=== PATIENT | male | born 1950 | race Caucasian/White ===

== ENCOUNTER 2016-11-18 08:49 | Emergency (ER) | payer MEDICAID ==
[~2016-11-18 08:49] MED LIST: /LOR25TA OR; /QUET10TA PO; ABIL20TA2 OR; ADDE10TA PO; ADDE20CA PO; CHLO200T OR; CLON1TAB PO; COLA100C2 OR; DEPA500T2 OR; MEDR8TAB OR; MELOPOW PO; MULTIVIT PO; Methylprednisolone; NICO21DI4 TD; PERC5TAB8 OR; QUET20XRTB OR; SERO200T PO; TIZA4TAB OR; TRAZ50TA OR; VALT500T OR; VICO5TAB PO
[2016-11-18] MEDS ORDERED: KETOROLAC 30 MG/ML VIAL (J1885) As Ordered ONE (10:05)
--- NOTE | 2016-11-18 10:24 | REP ---
Pelvis: Two views. History: Pain. Findings: AP and frog-leg views of the pelvis are compared with the June 08, 2011 prior study. There are mild osteoarthritic changes at the hips. Bony pelvic ring is intact. No pelvic or sacral fracture is seen. No bony destructive lesion noted. Visualized bowel gas pattern is unremarkable. There are some calcifications in the prostate. Impression: Mild osteoarthritis of the hips bilaterally. No acute bony abnormality. Signed by Moise Gay MD 11/18/2016 10:41 A
--- NOTE | 2016-11-18 10:24 | REP ---
Chest x-ray: Two views. History: Cough and wheezing. Findings: The lungs are symmetrically aerated and free of infiltrate. Pleural angles are sharp. There is a stable nodular opacity projecting over the right anterior second rib unchanged from the 2011 prior study. Lung miranda are otherwise clear. Heart is not enlarged. There are degenerative changes in the thoracic spine. Pulmonary vasculature is not increased. EKG monitoring electrodes overlie the chest. Impression: No active disease. Signed by Moise Gay MD 11/18/2016 10:41 A
--- NOTE | 2016-11-18 10:26 | REP ---
Lumbar spine series: Six views: History: Right lower back pain. Comparison radiographs September 30, 2012. Findings: Lumbar vertebral body heights are preserved. There is straightening of the normal lumbar lordosis. Degenerative disc disease is again noted at multiple levels. The disc space narrowing and reactive sclerosis and osteophyte formation are most pronounced at the L2-3 disc level. There is a stable grade 1 L1-2 3 mm retrolisthesis again noted unchanged. The discogenic sclerosis is a little more prominent. Discogenic spurring is seen to mild degree of all of the lumbar levels and the visualized lower thoracic levels. No subluxation is seen. No fracture or collapse is noted. Pedicles and posterior elements are intact. Psoas margins are symmetric. Sacrum and SI joints have an intact appearance. Impression: Diffuse degenerative disc disease in the lumbar spine most pronounced at L2-3. Discogenic spurring and sclerosis are a little more prominent at this level than was visible on the September 2012 prior exam. There is a stable grade 1 L1-2 3 mm retrolisthesis again noted unchanged. Signed by Moise Gay MD 11/18/2016 10:41 A
--- NOTE | 2016-11-18 11:49 | EDDOCDS ---
Nurse's Notes [facility] Name: Dre Monk Age: 65 yrs Sex: Male : 1950 Arrival Date: 11/18/2016 Time: 08:49 Bed 12 Private MD: Diagnosis: Strain of muscle and tendon of back wall of thorax-AFFECTING RIGHT LOWER BACK;Acute upper respiratory infection, unspecified;Cough Presentation: 11/18 08:51 Presenting complaint: EMS states: called to residence by another building resident. Per [facility], patient was complaining of back pain for the past 3 days, patient developed pain after coughing. Pain increases with cough. Allegedly had blood in stool last week. Complained of wheezing 3 days ago. 08:53 Presenting complaint: Patient states: Has been sick since Wednesday with coughing and ja5 chills, trouble urinating, some traces of blood visualized in stool when he has a BM. Acute neurological deficits are not present. Mechanism of Injury: No Mechanism of Injury. Adult Sepsis Screening: The patient does not have new or worsening altered mentation. Patient has a respiratory rate of greater than or equal to 22 (1 point). Systolic blood pressure is greater than 100. Patient has a qSOFA score of 1- Negative Sepsis Screen. Suicide/Homicide risk assessment- the patient denies having any suicidal and/or homicidal ideations and does not present with any other emotional, behavioral or mental health complaints. Status: Patient is not a student services coordinator or dependent. Transition of care: patient was not received from another setting of care. 08:53 Acuity: [place] Level 3 ja5 08:53 Method Of Arrival: Ambulance [facility] 08:54 Care prior to arrival: See EMS report. 4 Triage Assessment: 09:03 General: Appears in no apparent distress, Behavior is appropriate for age, cooperative. ja5 Pain: Location: right lower quadrant and right lower back. HIV screening NA for this visit Offered previously. The patient is triaged at the bedside. See Assessment in Nurses Notes section of ED record. Musculoskeletal: Circulation, motion, and sensation intact. Historical: - Allergies: Depakotebody aches; Tramadol HCl; - Home Meds: 1. ibuprofen 200 mg oral cap 2 caps as needed (Last dose: 11/17/2016) 2. Seroquel 100 mg Oral tab 2 tabs nightly (Last dose: 10/18/2016) 3. Omeprazole Unknown Oral once daily 4. clopidogrel 75 mg oral tab 1 tab once daily 5. metoprolol tartrate 50 mg Oral tab 1 tab 2 times per day 6. Eliquis 2.5 mg oral tab 1 tab 2 times per day 7. digoxin 125 mcg Oral tab 1 tab once daily 8. ferrous sulfate 325 mg (65 mg iron) Oral tab 9. lidocaine patch 5% 10. Advair HFA 115-21 mcg/actuation inhalation HFAA 2 puffs 2 times per day 11. zolpidem 10 mg Oral tab hs 12. clonazepam 0.5 mg Oral tab 13. dexamethasone 0.5 mg Oral tab 14. hydrocodone-acetaminophen 5-325 mg Oral tab as needed - PMHx: Chronic Back pain; ADHD; Depression; - PSHx: Hernia repair- Right inguinal; Tonsillectomy; - Social history: Smoking status: Patient uses tobacco products, heavy tobacco smoker. No barriers to communication noted, The patient speaks fluent Sami. - Family history: No immediate family members are acutely ill. - : The pt / caregiver states he / she is not on anticoagulants. Home medication list is obtained from the patient. - Exposure Risk Screening:: None identified. Screenin:10 Screening information is obtained from the patient. Fall risk: No risks identified. ja5 Assistance ADL's: requires no assistance with activities of daily living. Abuse/DV Screen: The patient / caregiver reports he/she is: not in a situation that causes fear, pain or injury. Nutritional screening: On no prescribed diet. Advance Directives: Currently, there is no health care proxy. There is an active DNR order but there is no copy available at this time. There is a living will, but a copy is not available at this time. There is no Power of Retail Loss Prevention Investigator. home support is inadequate. 09:21 Referral is made to [facility]. roxana Assessment: 09:06 General: Appears in no apparent distress, Behavior is appropriate for age, cooperative. ja5 Pain: Location: right lower quadrant and right lower back Pain currently is 7 out of 10 on a pain scale. Neurological: Level of Consciousness is awake, alert, Oriented to person, place, time. Cardiovascular: Capillary refill < 3 seconds Heart tones S1 S2 present. Respiratory: Airway is patent Respiratory effort is even, shallow, Breath sounds with wheezes expiratory bilaterally. GI: Abdomen is non- distended Bowel sounds present X 4 quads. Abd is soft X 4 quads Abd is non tender X 4 quads. Derm: Skin is pink, warm & dry. Musculoskeletal: Circulation, motion, and sensation intact. 10:13 General: Patient is awake and alert, resting in stretcher. Respirations are even and ja5 unlabored, current pain level is 7/10, he has no needs at this time. . Social Work Consult: 11:44 Social Work Note: Met pt at bedside regarding lack of adequate support. Admits residing ml4 alone, however does not like to go to appt's in the winter time due to feeling like he is going to fall. He reports a hx of depression, used to seek tx with [facility], last appt Aug 18. He denies SI and HI, able to CFS. Referrals for [facility], Home Care Services, and outpt psychiatrists services was given at bedside. Vital Signs: 08:56 BP 138 / 82; Pulse 85; Resp 22; Temp 98.3(TE); Pulse Ox 96% on R/A; Weight 72.57 kg nb2 (R); Height 5 ft. 11 in. (180.34 cm) (R); Pain 0/10; 10:50 BP 111 / 65; Pulse 80; Resp 18; Temp 99; Pulse Ox 96% ; Pain 0/10; cmb 08:56 Body Mass Index 22.32 (72.57 kg, 180.34 cm) nb2 Vitals: 08:51 Log In Time N/A - ambulance arrival. cmb ED Course: 08:51 Patient visited by Donna Angel. cmb 08:51 Patient moved to Waiting cmb 08:53 Hallie Mello,RN is Primary Nurse. cmb 08:53 Irma Mclaughlin, RN is Primary Nurse. cmb 08:53 Marni Herrera,RN is Primary Nurse. cmb 08:53 Patient moved to 12 b 08:56 Placed in gown. Bed in low position. Call light in reach. Side rails up X2. Cardiac nb2 monitor on. Pulse ox on. NIBP on. 08:57 Patient visited by Mariia Pacheco. nb2 09:00 Triage Initiated ja5 09:13 Patient visited by Marni Herrera RN. ja5 09:26 [facility] Saunders [facility]C [facility]. dt4 09:26 Chance Andrade MD is Attending Physician. dt4 09:26 Patient visited by Abiola Saunders PA-C. dt4 10:08 -Influenza A&B Rapid Antigen - Nose Sent. ja5 10:16 Patient visited by Marni Herrera RN. ja5 10:41 Pelvis Returned. EDMS 10:41 Chest, 2 View (pa\E\lat) Returned. EDMS 10:41 Spine. Lumbosacral, Complete Returned. EDMS 10:45 [facility] is Referral Physician. dt4 10:51 Patient visited by Donna Angel. cmb 11:05 Primary Nurse role handed off by Irma Mclaughlin RN jc4 11:48 Patient visited by Ayleen Stanford PSA. ml4 11:48 The patient / caregiver is instructed regarding the plan of care and ED course. mb9 11:48 No IV's were initiated during this patient's visit. No procedures done that require mb9 assistance. Administered Medications: 10:11 Drug: ketorolac 60 mg [ketorolac 30 mg/mL (1 mL) injection solution (2 mL)] Route: IM; ja5 Site: left deltoid; Order Results: Lab Order: -Influenza A&B Rapid Antigen - Nose; SPEC'M 11/18/16 10:06 Test: INFLUENZA A RAPID SCR by ICA; Value: INFLUENZA A RESULTS NEGATIVE; Status: F Test: INFLUENZA A RAPID SCR by ICA; Value: Comments:; Status: F Test: INFLUENZA B RAPID SCR by ICA; Value: INFLUENZA B RESULTS NEGATIVE; Status: F Test Note: ; The Influenza test is a direct rapid immunoassay for the qualitative detection of Influenza viral antigen. Cell culture (Viral Culture) testing should be considered to confirm NEGATIVE results and to assist in detecting other viruses that can provide similar clinical symptoms. Please contact the lab within 24 hours ([phone]) if confirmatory testing is desired. Radiology Order: Chest, 2 View (pa\E\lat) Test: Chest, 2 View (pa\E\lat) REASON FOR EXAMINATION: COUGH, WHEEZING; Chest x-ray: Two views.; ; History: Cough and wheezing.; ; Findings: The lungs are symmetrically aerated and free of infiltrate. Pleural; angles are sharp. There is a stable nodular opacity projecting over the right; anterior second rib unchanged from the 2010 prior study. Lung miranda are; otherwise clear. Heart is not enlarged. There are degenerative changes in the; thoracic spine. Pulmonary vasculature is not increased. EKG monitoring; electrodes overlie the chest.; ; Impression:; ; No active disease.; ; ; Signed by; Moise Gay MD 11/18/2016 10:41 A; Radiology Order: Spine. Lumbosacral, Complete Test: Spine. Lumbosacral, Complete REASON FOR EXAMINATION: RIGHT LOW BACK PAIN; Lumbar spine series: Six views:; ; History: Right lower back pain. Comparison radiographs September 30, 2012.; ; Findings: Lumbar vertebral body heights are preserved. There is straightening; of the normal lumbar lordosis. Degenerative disc disease is again noted at; multiple levels. The disc space narrowing and reactive sclerosis and osteophyte; formation are most pronounced at the L2-3 disc level. There is a stable grade 1; L1-2 3 mm retrolisthesis again noted unchanged. The discogenic sclerosis is a; little more prominent. Discogenic spurring is seen to mild degree of all of the; lumbar levels and the visualized lower thoracic levels. No subluxation is seen.; No fracture or collapse is noted. Pedicles and posterior elements are intact.; Psoas margins are symmetric. Sacrum and SI joints have an intact appearance.; ; Impression:; ; Diffuse degenerative disc disease in the lumbar spine most pronounced at L2-3.; Discogenic spurring and sclerosis are a little more prominent at this level than; was visible on the September 2012 prior exam. There is a stable grade 1 L1-2 3 mm; retrolisthesis again noted unchanged.; ; ; Signed by; Moise Gay MD 11/18/2016 10:41 A; Radiology Order: Pelvis Test: Pelvis REASON FOR EXAMINATION: RIGHT LOW BACK PAIN; Pelvis: Two views.; ; History: Pain.; ; Findings: AP and frog-leg views of the pelvis are compared with the June 082010 prior study. There are mild osteoarthritic changes at the hips. Bony; pelvic ring is intact. No pelvic or sacral fracture is seen. No bony; destructive lesion noted. Visualized bowel gas pattern is unremarkable. There; are some calcifications in the prostate.; ; Impression:; ; Mild osteoarthritis of the hips bilaterally. No acute bony abnormality.; ; ; Signed by; Moise Gay MD 11/18/2016 10:41 A; Outcome: 10:45 Discharge ordered by Provider. dt4 11:48 Discharge Assessment: Patient awake, alert and oriented x 3. No cognitive and/or mb9 functional deficits noted. Patient verbalized understanding of disposition instructions. patient administered narcotics - no. The following High Risk Discharge criteria are identified: None. Discharged to home ambulatory. Condition: good Condition: stable Condition: improved. Discharge instructions given to patient, Instructed on discharge instructions, follow up and referral plans. medication usage, Demonstrated understanding of instructions, medications, Pt was receptive of discharge instructions/ teaching. Prescriptions given X 1. No special radiology studies were completed. Property :Personal belongings accompany Pt. 11:48 Patient left the ED. mb9 Signatures: Dispatcher [employer] EDMS Kaya Sagastume, RN RN mcp Ayleen Stanford, PSA PSA ml4 Irma Mclaughlin, RN RN jc4 Donna Angel cmAbiola Triana, PA-C PA-C dt4 Morris Landis RN RN mb9 Mariia Pacheco2 Marni Herrera,RN RN ja5 MTDD
--- NOTE | 2016-11-18 11:49 | EDDOCDS ---
Physician Documentation [facility] Name: Dre Monk Age: 65 yrs Sex: Male : 1950 Arrival Date: 11/18/2016 Time: 08:49 Bed 12 Private MD: Disposition: 11/18/16 10:45 Discharged to Home/Self Care. Impression: Strain of muscle and tendon of back wall of thorax - AFFECTING RIGHT LOWER BACK, Acute upper respiratory infection, unspecified, Cough. - Condition is Stable. - Discharge Instructions: Muscle Strain, Upper Respiratory Infection, Adult, Cough, Adult. - Prescriptions for benzonatate 200 mg Oral Capsule - take 1 capsule by ORAL route 3 times per day As needed; 30 capsule. - Medication Reconciliation, Local Pharmacy Hours form. - Follow up: Emergency Department; When: As needed; Reason: Worsening of conditions. Follow up: [facility]; When: Call to arrange an appointment; Reason: Wound/Symptom Recheck, Recheck today's complaints, Continuance of care, To establish care. - Problem is new. - Symptoms are unchanged. Historical: - Allergies: Depakotebody aches; Tramadol HCl; - Home Meds: 1. ibuprofen 200 mg oral cap 2 caps as needed (Last dose: 11/17/2016) 2. Seroquel 100 mg Oral tab 2 tabs nightly (Last dose: 10/18/2016) 3. Omeprazole Unknown Oral once daily 4. clopidogrel 75 mg oral tab 1 tab once daily 5. metoprolol tartrate 50 mg Oral tab 1 tab 2 times per day 6. Eliquis 2.5 mg oral tab 1 tab 2 times per day 7. digoxin 125 mcg Oral tab 1 tab once daily 8. ferrous sulfate 325 mg (65 mg iron) Oral tab 9. lidocaine patch 5% 10. Advair HFA 115-21 mcg/actuation inhalation HFAA 2 puffs 2 times per day 11. zolpidem 10 mg Oral tab hs 12. clonazepam 0.5 mg Oral tab 13. dexamethasone 0.5 mg Oral tab 14. hydrocodone-acetaminophen 5-325 mg Oral tab as needed - PMHx: Chronic Back pain; ADHD; Depression; - PSHx: Hernia repair- Right inguinal; Tonsillectomy; - Social history: Smoking status: Patient uses tobacco products, heavy tobacco smoker. No barriers to communication noted, The patient speaks fluent Nepali. - Family history: No immediate family members are acutely ill. - : The pt / caregiver states he / she is not on anticoagulants. Home medication list is obtained from the patient. - Exposure Risk Screening:: None identified. Vital Signs: 11/18 08:56 BP 138 / 82; Pulse 85; Resp 22; Temp 98.3(TE); Pulse Ox 96% on R/A; Weight 72.57 kg / nb2 159.99 lbs (R); Height 5 ft. 11 in. (180.34 cm) (R); Pain 0/10; 10:50 BP 111 / 65; Pulse 80; Resp 18; Temp 99; Pulse Ox 96% ; Pain 0/10; cmb 08:56 Body Mass Index 22.32 (72.57 kg, 180.34 cm) nb2 MDM: 09:35 Obtain sample by nasopharyngeal swab ordered. dt4 09:35 ketorolac 60 mg IM once ordered. dt4 09:37 -Influenza A&B Rapid Antigen - Nose Ordered. EDMS 09:37 Chest, 2 View (pa\E\lat) Ordered. EDMS 09:37 Spine. Lumbosacral, Complete Ordered. EDMS 09:37 Pelvis Ordered. EDMS Administered Medications: 10:11 Drug: ketorolac 60 mg [ketorolac 30 mg/mL (1 mL) injection solution (2 mL)] Route: IM; ja5 Site: left deltoid; Signatures: Dispatcher [employer] EDMS Kaya Sagastume RN RN mcp Tschudi, Diane, PA-C PA-C dt4 Morris Landis RN RN mb9 Anderson, Jessica, RN RN ja5 MTDD
--- NOTE | 2016-11-20 12:49 | EDDOCDS ---
Nurse's Notes [facility] Name: Dre Monk Age: 65 yrs Sex: Male : 1950 Arrival Date: 11/18/2016 Time: 08:49 Bed 12 Private MD: Diagnosis: Strain of muscle and tendon of back wall of thorax-AFFECTING RIGHT LOWER BACK;Acute upper respiratory infection, unspecified;Cough Presentation: 11/18 08:51 Presenting complaint: EMS states: called to residence by another building resident. Per [facility], patient was complaining of back pain for the past 3 days, patient developed pain after coughing. Pain increases with cough. Allegedly had blood in stool last week. Complained of wheezing 3 days ago. 08:53 Presenting complaint: Patient states: Has been sick since Wednesday with coughing and ja5 chills, trouble urinating, some traces of blood visualized in stool when he has a BM. Acute neurological deficits are not present. Mechanism of Injury: No Mechanism of Injury. Adult Sepsis Screening: The patient does not have new or worsening altered mentation. Patient has a respiratory rate of greater than or equal to 22 (1 point). Systolic blood pressure is greater than 100. Patient has a qSOFA score of 1- Negative Sepsis Screen. Suicide/Homicide risk assessment- the patient denies having any suicidal and/or homicidal ideations and does not present with any other emotional, behavioral or mental health complaints. 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 Transition of care: patient was not received from another setting of care. 08:53 Acuity: [place] Level 3 ja5 08:53 Method Of Arrival: Ambulance [facility] 08:54 Care prior to arrival: See EMS report. 4 Triage Assessment: 09:03 General: Appears in no apparent distress, Behavior is appropriate for age, cooperative. ja5 Pain: Location: right lower quadrant and right lower back. HIV screening NA for this visit Offered previously. The patient is triaged at the bedside. See Assessment in Nurses Notes section of ED record. Musculoskeletal: Circulation, motion, and sensation intact. Historical: - Allergies: Depakotebody aches; Tramadol HCl; - Home Meds: 1. ibuprofen 200 mg oral cap 2 caps as needed (Last dose: 11/17/2016) 2. Seroquel 100 mg Oral tab 2 tabs nightly (Last dose: 10/18/2016) 3. Omeprazole Unknown Oral once daily 4. clopidogrel 75 mg oral tab 1 tab once daily 5. metoprolol tartrate 50 mg Oral tab 1 tab 2 times per day 6. Eliquis 2.5 mg oral tab 1 tab 2 times per day 7. digoxin 125 mcg Oral tab 1 tab once daily 8. ferrous sulfate 325 mg (65 mg iron) Oral tab 9. lidocaine patch 5% 10. Advair HFA 115-21 mcg/actuation inhalation HFAA 2 puffs 2 times per day 11. zolpidem 10 mg Oral tab hs 12. clonazepam 0.5 mg Oral tab 13. dexamethasone 0.5 mg Oral tab 14. hydrocodone-acetaminophen 5-325 mg Oral tab as needed - PMHx: Chronic Back pain; ADHD; Depression; - PSHx: Hernia repair- Right inguinal; Tonsillectomy; - Social history: Smoking status: Patient uses tobacco products, heavy tobacco smoker. No barriers to communication noted, The patient speaks fluent Welsh. - Family history: No immediate family members are acutely ill. - : The pt / caregiver states he / she is not on anticoagulants. Home medication list is obtained from the patient. - Exposure Risk Screening:: None identified. Screenin:10 Screening information is obtained from the patient. Fall risk: No risks identified. ja5 Assistance ADL's: requires no assistance with activities of daily living. Abuse/DV Screen: The patient / caregiver reports he/she is: not in a situation that causes fear, pain or injury. Nutritional screening: On no prescribed diet. Advance Directives: Currently, there is no health care proxy. There is an active DNR order but there is no copy available at this time. There is a living will, but a copy is not available at this time. There is no Power of Exhibit Builder. home support is inadequate. 09:21 Referral is made to [facility]. roxana Assessment: 09:06 General: Appears in no apparent distress, Behavior is appropriate for age, cooperative. ja5 Pain: Location: right lower quadrant and right lower back Pain currently is 7 out of 10 on a pain scale. Neurological: Level of Consciousness is awake, alert, Oriented to person, place, time. Cardiovascular: Capillary refill < 3 seconds Heart tones S1 S2 present. Respiratory: Airway is patent Respiratory effort is even, shallow, Breath sounds with wheezes expiratory bilaterally. GI: Abdomen is non- distended Bowel sounds present X 4 quads. Abd is soft X 4 quads Abd is non tender X 4 quads. Derm: Skin is pink, warm & dry. Musculoskeletal: Circulation, motion, and sensation intact. 10:13 General: Patient is awake and alert, resting in stretcher. Respirations are even and ja5 unlabored, current pain level is 7/10, he has no needs at this time. . Social Work Consult: 11:44 Social Work Note: Met pt at bedside regarding lack of adequate support. Admits residing ml4 alone, however does not like to go to appt's in the winter time due to feeling like he is going to fall. He reports a hx of depression, used to seek tx with [facility], last appt Aug 18. He denies SI and HI, able to CFS. Referrals for GME, Home Care Services, and outpt psychiatrists services was given at bedside. Vital Signs: 08:56 BP 138 / 82; Pulse 85; Resp 22; Temp 98.3(TE); Pulse Ox 96% on R/A; Weight 72.57 kg nb2 (R); Height 5 ft. 11 in. (180.34 cm) (R); Pain 0/10; 10:50 BP 111 / 65; Pulse 80; Resp 18; Temp 99; Pulse Ox 96% ; Pain 0/10; cmb 08:56 Body Mass Index 22.32 (72.57 kg, 180.34 cm) nb2 Vitals: 08:51 Log In Time N/A - ambulance arrival. cmb ED Course: 08:51 Patient visited by Donna Angel. cmb 08:51 Patient moved to Waiting cmb 08:53 Hallie Mello,RN is Primary Nurse. cmb 08:53 Irma Mclaughlin, RN is Primary Nurse. cmb 08:53 Marni Herrera,RN is Primary Nurse. cmb 08:53 Patient moved to 12 b 08:56 Placed in gown. Bed in low position. Call light in reach. Side rails up X2. Cardiac nb2 monitor on. Pulse ox on. NIBP on. 08:57 Patient visited by Mariia Pacheco. nb2 09:00 Triage Initiated ja5 09:13 Patient visited by Marni Herrera RN. ja5 09:26 [facility]unders [facility] dt4 09:26 Chance Andrade MD is Attending Physician. dt4 09:26 Patient visited by Abiola Saunders PA-C. dt4 10:08 -Influenza A&B Rapid Antigen - Nose Sent. ja5 10:16 Patient visited by Marni Herrera RN. ja5 10:41 Pelvis Returned. EDMS 10:41 Chest, 2 View (pa\E\lat) Returned. EDMS 10:41 Spine. Lumbosacral, Complete Returned. EDMS 10:45 [facility] is Referral Physician. dt4 10:51 Patient visited by Donna Angel. cmb 11:05 Primary Nurse role handed off by Irma Mclaughlin RN jc4 11:48 Patient visited by Ayleen Stanford PSA. ml4 11:48 The patient / caregiver is instructed regarding the plan of care and ED course. mb9 11:48 No IV's were initiated during this patient's visit. No procedures done that require mb9 assistance. 11:52 [facility] Payment Agreement was scanned into [employer] and attached to record. mm15 15:04 T-Sheet-- Draft Copy was scanned into [employer] and attached to record. gb Administered Medications: 10:11 Drug: ketorolac 60 mg [ketorolac 30 mg/mL (1 mL) injection solution (2 mL)] Route: IM; ja5 Site: left deltoid; Order Results: Lab Order: -Influenza A&B Rapid Antigen - Nose; SPEC'M 11/18/16 10:06 Test: INFLUENZA A RAPID SCR by ICA; Value: INFLUENZA A RESULTS NEGATIVE; Status: F Test: INFLUENZA A RAPID SCR by ICA; Value: Comments:; Status: F Test: INFLUENZA B RAPID SCR by ICA; Value: INFLUENZA B RESULTS NEGATIVE; Status: F Test Note: ; The Influenza test is a direct rapid immunoassay for the qualitative detection of Influenza viral antigen. Cell culture (Viral Culture) testing should be considered to confirm NEGATIVE results and to assist in detecting other viruses that can provide similar clinical symptoms. Please contact the lab within 24 hours ([phone]) if confirmatory testing is desired. Radiology Order: Chest, 2 View (pa\E\lat) Test: Chest, 2 View (pa\E\lat) REASON FOR EXAMINATION: COUGH, WHEEZING; Chest x-ray: Two views.; ; History: Cough and wheezing.; ; Findings: The lungs are symmetrically aerated and free of infiltrate. Pleural; angles are sharp. There is a stable nodular opacity projecting over the right; anterior second rib unchanged from the 2010 prior study. Lung miranda are; otherwise clear. Heart is not enlarged. There are degenerative changes in the; thoracic spine. Pulmonary vasculature is not increased. EKG monitoring; electrodes overlie the chest.; ; Impression:; ; No active disease.; ; ; Signed by; Moise Gay MD 11/18/2016 10:41 A; Radiology Order: Spine. Lumbosacral, Complete Test: Spine. Lumbosacral, Complete REASON FOR EXAMINATION: RIGHT LOW BACK PAIN; Lumbar spine series: Six views:; ; History: Right lower back pain. Comparison radiographs September 30, 2012.; ; Findings: Lumbar vertebral body heights are preserved. There is straightening; of the normal lumbar lordosis. Degenerative disc disease is again noted at; multiple levels. The disc space narrowing and reactive sclerosis and osteophyte; formation are most pronounced at the L2-3 disc level. There is a stable grade 1; L1-2 3 mm retrolisthesis again noted unchanged. The discogenic sclerosis is a; little more prominent. Discogenic spurring is seen to mild degree of all of the; lumbar levels and the visualized lower thoracic levels. No subluxation is seen.; No fracture or collapse is noted. Pedicles and posterior elements are intact.; Psoas margins are symmetric. Sacrum and SI joints have an intact appearance.; ; Impression:; ; Diffuse degenerative disc disease in the lumbar spine most pronounced at L2-3.; Discogenic spurring and sclerosis are a little more prominent at this level than; was visible on the September 2012 prior exam. There is a stable grade 1 L1-2 3 mm; retrolisthesis again noted unchanged.; ; ; Signed by; Moise Gay MD 11/18/2016 10:41 A; Radiology Order: Pelvis Test: Pelvis REASON FOR EXAMINATION: RIGHT LOW BACK PAIN; Pelvis: Two views.; ; History: Pain.; ; Findings: AP and frog-leg views of the pelvis are compared with the June 082010 prior study. There are mild osteoarthritic changes at the hips. Bony; pelvic ring is intact. No pelvic or sacral fracture is seen. No bony; destructive lesion noted. Visualized bowel gas pattern is unremarkable. There; are some calcifications in the prostate.; ; Impression:; ; Mild osteoarthritis of the hips bilaterally. No acute bony abnormality.; ; ; Signed by; Moise Gay MD 11/18/2016 10:41 A; Outcome: 10:45 Discharge ordered by Provider. dt4 11:48 Discharge Assessment: Patient awake, alert and oriented x 3. No cognitive and/or mb9 functional deficits noted. Patient verbalized understanding of disposition instructions. patient administered narcotics - no. The following High Risk Discharge criteria are identified: None. Discharged to home ambulatory. Condition: good Condition: stable Condition: improved. Discharge instructions given to patient, Instructed on discharge instructions, follow up and referral plans. medication usage, Demonstrated understanding of instructions, medications, Pt was receptive of discharge instructions/ teaching. Prescriptions given X 1. No special radiology studies were completed. Property :Personal belongings accompany Pt. 11:48 Patient left the ED. mb9 Signatures: Dispatcher [employer] EDMS Kaya Sagastume, RN RN mcp Lulu James, Reg Reg gb Ayleen Stanford, PSA PSA ml4 Irma Mclaughlin, RN RN jc4 Donna Angel cmIan Monet mm15 Abiola Saunders, PA-C PA-C dt4 Morris LandisRN RN mb9 Mariia Pacheco nb2 Marni HerreraRN RN ja5 Chart Complete MTDD
--- NOTE | 2016-11-20 12:49 | EDDOCDS ---
Physician Documentation [facility] Name: Dre Monk Age: 65 yrs Sex: Male : 1950 Arrival Date: 11/18/2016 Time: 08:49 Bed 12 Private MD: Disposition: 11/18/16 10:45 Discharged to Home/Self Care. Impression: Strain of muscle and tendon of back wall of thorax - AFFECTING RIGHT LOWER BACK, Acute upper respiratory infection, unspecified, Cough. - Condition is Stable. - Discharge Instructions: Muscle Strain, Upper Respiratory Infection, Adult, Cough, Adult. - Prescriptions for benzonatate 200 mg Oral Capsule - take 1 capsule by ORAL route 3 times per day As needed; 30 capsule. - Medication Reconciliation, Local Pharmacy Hours form. - Follow up: Emergency Department; When: As needed; Reason: Worsening of conditions. [facility]: [facility]; When: Call to arrange an appointment; Reason: Wound/Symptom Recheck, Recheck today's complaints, Continuance of care, To establish care. - Problem is new. - Symptoms are unchanged. Historical: - Allergies: Depakotebody aches; Tramadol HCl; - Home Meds: 1. ibuprofen 200 mg oral cap 2 caps as needed (Last dose: 11/17/2016) 2. Seroquel 100 mg Oral tab 2 tabs nightly (Last dose: 10/18/2016) 3. Omeprazole Unknown Oral once daily 4. clopidogrel 75 mg oral tab 1 tab once daily 5. metoprolol tartrate 50 mg Oral tab 1 tab 2 times per day 6. Eliquis 2.5 mg oral tab 1 tab 2 times per day 7. digoxin 125 mcg Oral tab 1 tab once daily 8. ferrous sulfate 325 mg (65 mg iron) Oral tab 9. lidocaine patch 5% 10. Advair HFA 115-21 mcg/actuation inhalation HFAA 2 puffs 2 times per day 11. zolpidem 10 mg Oral tab hs 12. clonazepam 0.5 mg Oral tab 13. dexamethasone 0.5 mg Oral tab 14. hydrocodone-acetaminophen 5-325 mg Oral tab as needed - PMHx: Chronic Back pain; ADHD; Depression; - PSHx: Hernia repair- Right inguinal; Tonsillectomy; - Social history: Smoking status: Patient uses tobacco products, heavy tobacco smoker. No barriers to communication noted, The patient speaks fluent Lao. - Family history: No immediate family members are acutely ill. - : The pt / caregiver states he / she is not on anticoagulants. Home medication list is obtained from the patient. - Exposure Risk Screening:: None identified. Vital Signs: 11/18 08:56 BP 138 / 82; Pulse 85; Resp 22; Temp 98.3(TE); Pulse Ox 96% on R/A; Weight 72.57 kg / nb2 159.99 lbs (R); Height 5 ft. 11 in. (180.34 cm) (R); Pain 0/10; 10:50 BP 111 / 65; Pulse 80; Resp 18; Temp 99; Pulse Ox 96% ; Pain 0/10; cmb 08:56 Body Mass Index 22.32 (72.57 kg, 180.34 cm) nb2 MDM: 09:35 Obtain sample by nasopharyngeal swab ordered. dt4 09:35 ketorolac 60 mg IM once ordered. dt4 09:37 -Influenza A&B Rapid Antigen - Nose Ordered. EDMS 09:37 Chest, 2 View (pa\E\lat) Ordered. EDMS 09:37 Spine. Lumbosacral, Complete Ordered. EDMS 09:37 Pelvis Ordered. EDMS 11:52 [facility] Payment Agreement was scanned into [employer] and attached to record. 15 11:52 Financial registration complete. mm15 15:04 T-Sheet-- Draft Copy was scanned into [employer] and attached to record. gb Administered Medications: 10:11 Drug: ketorolac 60 mg [ketorolac 30 mg/mL (1 mL) injection solution (2 mL)] Route: IM; ja5 Site: left deltoid; Signatures: Dispatcher [employer] EDMS Kaya Sagastume RN RN mcp Barnhardt, Gloria, Reg Reg gb Ian Burden mm15 Abiola Saunders PA-C PAJayla dt4 Morris Landis RN RN mb9 Marni Herrera RN RN ja5 The chart was reviewed and I authenticate all verbal orders and agree with the evaluation and treatment provided.Attachments: 11:52 [facility] Payment Agreement mm15 15:04 T-Sheet-- Draft Copy gb Chart Complete MTDD
--- NOTE | 2016-11-20 12:49 | EDDOCDS ---
Physician Documentation [facility] Name: Dre Monk Age: 65 yrs Sex: Male : 1950 Arrival Date: 11/18/2016 Time: 08:49 Bed 12 Private MD: Disposition: 11/18/16 10:45 Discharged to Home/Self Care. Impression: Strain of muscle and tendon of back wall of thorax - AFFECTING RIGHT LOWER BACK, Acute upper respiratory infection, unspecified, Cough. - Condition is Stable. - Discharge Instructions: Muscle Strain, Upper Respiratory Infection, Adult, Cough, Adult. - Prescriptions for benzonatate 200 mg Oral Capsule - take 1 capsule by ORAL route 3 times per day As needed; 30 capsule. - Medication Reconciliation, Local Pharmacy Hours form. - Follow up: Emergency Department; When: As needed; Reason: Worsening of conditions. [facility]: [facility]; When: Call to arrange an appointment; Reason: Wound/Symptom Recheck, Recheck today's complaints, Continuance of care, To establish care. - Problem is new. - Symptoms are unchanged. Historical: - Allergies: Depakotebody aches; Tramadol HCl; - Home Meds: 1. ibuprofen 200 mg oral cap 2 caps as needed (Last dose: 11/17/2016) 2. Seroquel 100 mg Oral tab 2 tabs nightly (Last dose: 10/18/2016) 3. Omeprazole Unknown Oral once daily 4. clopidogrel 75 mg oral tab 1 tab once daily 5. metoprolol tartrate 50 mg Oral tab 1 tab 2 times per day 6. Eliquis 2.5 mg oral tab 1 tab 2 times per day 7. digoxin 125 mcg Oral tab 1 tab once daily 8. ferrous sulfate 325 mg (65 mg iron) Oral tab 9. lidocaine patch 5% 10. Advair HFA 115-21 mcg/actuation inhalation HFAA 2 puffs 2 times per day 11. zolpidem 10 mg Oral tab hs 12. clonazepam 0.5 mg Oral tab 13. dexamethasone 0.5 mg Oral tab 14. hydrocodone-acetaminophen 5-325 mg Oral tab as needed - PMHx: Chronic Back pain; ADHD; Depression; - PSHx: Hernia repair- Right inguinal; Tonsillectomy; - Social history: Smoking status: Patient uses tobacco products, heavy tobacco smoker. No barriers to communication noted, The patient speaks fluent [place]. - Family history: No immediate family members are acutely ill. - : The pt / caregiver states he / she is not on anticoagulants. Home medication list is obtained from the patient. - Exposure Risk Screening:: None identified. Vital Signs: 11/18 08:56 BP 138 / 82; Pulse 85; Resp 22; Temp 98.3(TE); Pulse Ox 96% on R/A; Weight 72.57 kg / nb2 159.99 lbs (R); Height 5 ft. 11 in. (180.34 cm) (R); Pain 0/10; 10:50 BP 111 / 65; Pulse 80; Resp 18; Temp 99; Pulse Ox 96% ; Pain 0/10; cmb 08:56 Body Mass Index 22.32 (72.57 kg, 180.34 cm) nb2 MDM: 09:35 Obtain sample by nasopharyngeal swab ordered. dt4 09:35 ketorolac 60 mg IM once ordered. dt4 09:37 -Influenza A&B Rapid Antigen - Nose Ordered. EDMS 09:37 Chest, 2 View (pa\E\lat) Ordered. EDMS 09:37 Spine. Lumbosacral, Complete Ordered. EDMS 09:37 Pelvis Ordered. EDMS 11:52 [facility] Payment Agreement was scanned into [employer] and attached to record. 15 11:52 Financial registration complete. mm15 15:04 T-Sheet-- Draft Copy was scanned into [employer] and attached to record. gb Administered Medications: 10:11 Drug: ketorolac 60 mg [ketorolac 30 mg/mL (1 mL) injection solution (2 mL)] Route: IM; ja5 Site: left deltoid; Signatures: Dispatcher [employer] EDMS Kaya Sagastume RN RN mcp Barnhardt, Gloria, Reg Reg gb Ian Burden mm15 Abiola Saunders PA-C PAJayla dt4 Morris Landis RN RN mb9 Marni Herrera RN RN ja5 The chart was reviewed and I authenticate all verbal orders and agree with the evaluation and treatment provided.Attachments: 11:52 [facility] Payment Agreement mm15 15:04 T-Sheet-- Draft Copy gb Chart Complete MTDD
== END 2016-11-18 11:48 | disposition home or self-care (01) ==
LOC: M ED 08:49
DX: S29.012A Strain of muscle and tendon of back wall of thorax, initial encounter (principal); X58.XXXA Exposure to other specified factors, initial encounter; Y92.89 Other specified places as the place of occurrence of the external cause; Y93.89 Activity, other specified; Y99.8 Other external cause status; J06.9 Acute upper respiratory infection, unspecified; M54.9 Dorsalgia, unspecified; F90.9 Attention-deficit hyperactivity disorder, unspecified type; F32.9 Major depressive disorder, single episode, unspecified; F17.210 Nicotine dependence, cigarettes, uncomplicated; Z79.51 Long term (current) use of inhaled steroids; Z79.01 Long term (current) use of anticoagulants; Z79.1 Long term (current) use of non-steroidal anti-inflammatories (NSAID); Z79.899 Other long term (current) drug therapy; Z88.8 Allergy status to other drugs, medicaments and biological substances
CPT/HCPCS: 71020; 72110; 72190; 87804; 96372; 99284; J1885

== ENCOUNTER → 2017-03-26 | Outpatient (CLI) | payer MEDICAID ==
[2017-03-26 07:30] LABS: BASO % 0.8 % (0.0-1.0); EOS # 0.3 K/mm3 (0.0-0.50); EOS % 4.9 % (0.0-3.0); LARGE UNSTAINED CELL # 0.1 K/mm3 (0.0-0.4); LARGE UNSTAINED CELL % 1.9 % (0.0-4.0); LYMPH # 2.1 K/mm3 (1.5-4.5); LYMPH % 32.8 % (24.0-44.0); MEAN CORPUSCULAR HEMOGLOBIN 31.7 pg (27.0-33.0); MEAN CORPUSCULAR HGB CONC 33.8 g/dl (32.0-36.5); MEAN CORPUSCULAR VOLUME 93.7 fl (80.0-96.0); MONO # 0.4 K/mm3 (0.0-0.8); NEUTROPHILS # 3.3 K/mm3 (1.8-7.7); NEUTROPHILS % 53.5 % (36.0-66.0); PLATELET COUNT, AUTOMATED 216 k/mm3 (150-450); RED CELL DISTRIBUTION WIDTH 12.4 % (11.5-14.5); WHITE BLOOD COUNT 6.1 K/mm3 (4.0-10.0)
[2017-03-26 08:02] LABS: ALBUMIN 4.1 GM/DL (3.2-5.2); ALBUMIN/GLOBULIN RATIO 1.37 (1.00-1.93); ALKALINE PHOSPHATASE 71 U/L (45-117); ALT/SGPT 34 U/L (12-78); ANION GAP 7 MEQ/L (8-16); AST/SGOT 17 U/L (15-37); BILIRUBIN,TOTAL 0.7 MG/DL (0.2-1.0); BLOOD UREA NITROGEN 11 MG/DL (7-18); CALCIUM LEVEL 8.8 MG/DL (8.8-10.2); CARBON DIOXIDE LEVEL 27 MEQ/L (21-32); CHLORIDE LEVEL 106 MEQ/L (98-107); CHOLESTEROL LEVEL 208 MG/DL (<200); CREATININE FOR GFR 0.95 MG/DL (0.70-1.30); GLOMERULAR FILTRATION RATE > 60.0 (>49); GLUCOSE, FASTING 97 MG/DL (80-110); MAGNESIUM LEVEL 2.1 MG/DL (1.8-2.4); POTASSIUM SERUM 4.3 MEQ/L (3.5-5.1); SODIUM LEVEL 140 MEQ/L (136-145); TOTAL PROTEIN 7.1 GM/DL (6.4-8.2); TRIGLYCERIDES LEVEL 65 MG/DL (<150)
--- NOTE | 2017-03-26 08:46 | REP ---
CHEST X-RAY: Two views. HISTORY: Dyspnea. Comparison chest x-ray November 18, 2016 and June 08, 2011. FINDINGS: The lungs are well inflated and free of infiltrate. Pleural angles are sharp. Heart is not enlarged. There are degenerative changes in the thoracic spine. Pulmonary vasculature is not increased. Nipple shadows are seen in both bases unchanged from 2011. There is a nodular opacity superimposed on the anterior aspect of the 2nd rib on the right which is also unchanged from 2011 prior study. IMPRESSION: No active disease. Signed by Moise Gay MD 03/26/2017 09:37 A
[2017-03-26 12:39] LABS: HEPATITIS B SURFACE ANTIBODY NEGATIVE (POSITIVE)
[2017-03-30 14:23] LABS: HCV RNA NAA QUALITIATIVE Negative (Negative); HEPATITIS C QUANTITATION HCV Not Detected IU/mL (.)
== END ==
LOC: M LAB 06:37
PROVIDERS: ATTEND Nurse Practitioner Family
DX: R06.00 Dyspnea, unspecified (principal); R63.1 Polydipsia; B18.2 Chronic viral hepatitis C; I49.9 Cardiac arrhythmia, unspecified; F41.1 Generalized anxiety disorder

== ENCOUNTER → 2017-04-14 | Outpatient (CLI) | payer MEDICAID ==
--- NOTE | 2017-04-16 13:21 | ECGEPIP ---
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
== END ==
LOC: M EKG 08:52
PROVIDERS: ATTEND Nurse Practitioner Family
DX: I49.9 Cardiac arrhythmia, unspecified (principal)

== ENCOUNTER 2018-01-21 05:58 | Emergency (ER) | payer MEDICAID, MEDICARE ==
[2018-01-21] MEDS: KETOROLAC 60 MG/2 ML VIAL (J1885) IM ×2 (07:35)
== END 2018-01-21 08:07 | disposition home or self-care (01) ==
LOC: M ED 05:58
DX: S46.811A Strain of other muscles, fascia and tendons at shoulder and upper arm level, right arm, initial encounter (principal); Y04.8XXA Assault by other bodily force, initial encounter; Y92.89 Other specified places as the place of occurrence of the external cause; M54.12 Radiculopathy, cervical region; B19.10 Unspecified viral hepatitis B without hepatic coma; B19.20 Unspecified viral hepatitis C without hepatic coma; F33.9 Major depressive disorder, recurrent, unspecified; F41.9 Anxiety disorder, unspecified; F17.200 Nicotine dependence, unspecified, uncomplicated; Z88.5 Allergy status to narcotic agent; Z88.8 Allergy status to other drugs, medicaments and biological substances
CPT/HCPCS: J1885

== ENCOUNTER 2018-01-28 07:20 | Emergency (ER) | payer MEDICARE, MEDICAID | END 2018-01-28 10:11 | disposition home or self-care (01) | LOC: M ED 07:20 | DX: M48.00 Spinal stenosis, site unspecified (principal); G89.29 Other chronic pain; R94.31 Abnormal electrocardiogram [ECG] [EKG]; Z79.899 Other long term (current) drug therapy; Z88.5 Allergy status to narcotic agent; Z88.8 Allergy status to other drugs, medicaments and biological substances | CPT/HCPCS: 70450 ==

== ENCOUNTER 2018-05-23 11:48 | Inpatient (IN) | payer MEDICARE, MEDICAID ==
[2018-05-23 13:14] LABS: AMPHETAMINES LEVEL URINE NEGATIVE (NEGATIVE); BARBITURATES URINE NEGATIVE (NEGATIVE); BENZODIAZEPINES URINE NEGATIVE (NEGATIVE); CANNABINOIDS URINE NEGATIVE (NEGATIVE); COCAINE METABOLITE URINE NEGATIVE (NEGATIVE); METHADONE URINE NEGATIVE (NEGATIVE); OPIATES URINE NEGATIVE (NEGATIVE); PHENCYCLIDINE URINE NEGATIVE (NEGATIVE)
[2018-05-23] MEDS: LIDOCAINE 2% W/EPIN INJ 20ML **PRES FREE INJ (13:26)
[2018-05-23] MEDS: NS 1,000 ML IV (13:27)
[2018-05-23 13:32] LABS: HEMATOCRIT 39.6 % (42.0-52.0); HEMOGLOBIN 13.5 g/dl (13.5-17.5); MEAN CORPUSCULAR HEMOGLOBIN 31.1 pg (27.0-33.0); MEAN CORPUSCULAR HGB CONC 34.1 g/dl (32.0-36.5); MEAN CORPUSCULAR VOLUME 91.2 fl (80.0-96.0); PLATELET COUNT, AUTOMATED 229 10^3/uL (150-450); RED BLOOD COUNT 4.34 10^6/uL (4.30-6.10); RED CELL DISTRIBUTION WIDTH 12.8 % (11.5-14.5)
[2018-05-23 13:55] LABS: LACTIC ACID SEPSIS PROTOCOL 0.8 MMOL/L (0.4-2.0)
[2018-05-23 14:06] LABS: ALBUMIN 4.1 GM/DL (3.2-5.2); ALBUMIN/GLOBULIN RATIO 1.37 (1.00-1.93); ALKALINE PHOSPHATASE 76 U/L (45-117); ALT/SGPT 25 U/L (12-78); AMYLASE 52 U/L (25-115); ANION GAP 8 MEQ/L (8-16); AST/SGOT 18 U/L (7-37); BILIRUBIN,DIRECT 0.2 MG/DL (0.0-0.2); BILIRUBIN,TOTAL 0.8 MG/DL (0.2-1.0); BLOOD UREA NITROGEN 8 MG/DL (7-18); CALCIUM LEVEL 8.9 MG/DL (8.8-10.2); CARBON DIOXIDE LEVEL 25 MEQ/L (21-32); CHLORIDE LEVEL 108 MEQ/L (98-107); CREATININE FOR GFR 0.91 MG/DL (0.70-1.30); ETHYL ALCOHOL (ETHANOL) < 0.003 % (0.000-0.010); GLOMERULAR FILTRATION RATE > 60.0 (>49); GLUCOSE, FASTING 100 MG/DL (70-100); LIPASE 206 U/L (73-393); POTASSIUM SERUM 3.9 MEQ/L (3.5-5.1); SODIUM LEVEL 141 MEQ/L (136-145); THYROID STIMULATING HORMONE 0.445 uIU/ML (0.358-3.740); TOTAL PROTEIN 7.1 GM/DL (6.4-8.2)
[2018-05-23 14:07] LABS: ACETAMINOPHEN LEVEL < 2.0 UG/ML (10.0-30.0)
[2018-05-23] MEDS: TETANUS/DIPHTHERIA TOX ADSORB ADULT 0.5ML SYR/VIAL (90714) IM (14:13)
[2018-05-23] MEDS: ceFAZolin SOD 1 GM in D5W MINI-BAG PLUS 50 ML IV (14:14)
[2018-05-23] MEDS: NICOTINE 21MG/24HR 1 EA TRANSDERMAL TD (15:03)
[2018-05-23] MEDS ORDERED: MOM 30ML SUSPENSION UDC PO (19:00)
[2018-05-23] MEDS ORDERED: MAALOX 30 ML SUSP *UDC PO (19:00)
[2018-05-23] MEDS: traZODone 50 MG TAB PO (20:21)
[2018-05-23] MEDS: ACETAMINOPHEN TAB 650MG DOSE (2X325MG) PO (20:28)
[2018-05-24] MEDS: ACETAMINOPHEN TAB 650MG DOSE (2X325MG) PO (08:31)
[2018-05-24] MEDS: NICOTINE 21MG/24HR 1 EA TRANSDERMAL TD (10:04)
[2018-05-24] MEDS ORDERED: hydrOXYzine 50 MG TAB PO (12:00)
[2018-05-24] MEDS: GABAPENTIN 300 MG CAP PO ×3 (12:07→20:45)
[2018-05-24] MEDS: QUEtiapine FUMARATE 50 MG TAB PO (20:45)
[2018-05-25 07:10] LABS: HEMATOCRIT 40.3 % (42.0-52.0); HEMOGLOBIN 13.4 g/dl (13.5-17.5); MEAN CORPUSCULAR HEMOGLOBIN 30.9 pg (27.0-33.0); MEAN CORPUSCULAR HGB CONC 33.3 g/dl (32.0-36.5); MEAN CORPUSCULAR VOLUME 93.1 fl (80.0-96.0); PLATELET COUNT, AUTOMATED 250 10^3/uL (150-450); RED BLOOD COUNT 4.33 10^6/uL (4.30-6.10); WHITE BLOOD COUNT 7.7 10^3/uL (4.0-10.0)
[2018-05-25] MEDS: GABAPENTIN 300 MG CAP PO ×3 (08:05→20:13)
[2018-05-25] MEDS: NICOTINE 21MG/24HR 1 EA TRANSDERMAL TD (08:05)
[2018-05-25] MEDS: traZODone 50 MG TAB PO (20:13)
[2018-05-25] MEDS: QUEtiapine FUMARATE 50 MG TAB PO (20:14)
[2018-05-26] MEDS: NICOTINE 21MG/24HR 1 EA TRANSDERMAL TD (08:09)
[2018-05-26] MEDS: GABAPENTIN 300 MG CAP PO ×3 (08:09→20:12)
[2018-05-26] MEDS: MELOXICAM (MOBIC) 7.5 MG TAB PO (18:25)
[2018-05-26] MEDS: QUEtiapine FUMARATE 50 MG TAB PO (20:12)
[2018-05-26] MEDS: traZODone 50 MG TAB PO (20:12)
[2018-05-27] MEDS: GABAPENTIN 300 MG CAP PO ×3 (08:10→20:01)
[2018-05-27] MEDS: MELOXICAM (MOBIC) 7.5 MG TAB PO (08:10)
[2018-05-27] MEDS: NICOTINE 21MG/24HR 1 EA TRANSDERMAL TD (08:11)
[2018-05-27] MEDS: QUEtiapine FUMARATE 50 MG TAB PO (20:01)
[2018-05-27] MEDS: ARIPiprazole 15 MG TAB (AbiLIFY) PO (20:01)
[2018-05-28] MEDS: NICOTINE 21MG/24HR 1 EA TRANSDERMAL TD (08:13)
[2018-05-28] MEDS: PILL CRUSHER/CUTTER 1 EACH XX (08:14)
[2018-05-28] MEDS: ARIPiprazole 15 MG TAB (AbiLIFY) PO ×2 (08:14→20:36)
[2018-05-28] MEDS: GABAPENTIN 300 MG CAP PO ×3 (08:14→20:36)
[2018-05-28] MEDS: MELOXICAM (MOBIC) 7.5 MG TAB PO (08:14)
[2018-05-28] MEDS: QUEtiapine FUMARATE 50 MG TAB PO (20:36)
[2018-05-29] MEDS: MELOXICAM (MOBIC) 7.5 MG TAB PO (08:09)
[2018-05-29] MEDS: ARIPiprazole 15 MG TAB (AbiLIFY) PO ×2 (08:09→20:14)
[2018-05-29] MEDS: GABAPENTIN 300 MG CAP PO ×3 (08:09→20:13)
[2018-05-29] MEDS: NICOTINE 21MG/24HR 1 EA TRANSDERMAL TD (08:10)
[2018-05-29] MEDS: QUEtiapine FUMARATE 50 MG TAB PO (20:14)
[2018-05-29] MEDS: PILL CRUSHER/CUTTER 1 EACH XX (20:14)
[2018-05-30] MEDS: MELOXICAM (MOBIC) 7.5 MG TAB PO (08:03)
[2018-05-30] MEDS: GABAPENTIN 300 MG CAP PO (08:03)
[2018-05-30] MEDS: NICOTINE 21MG/24HR 1 EA TRANSDERMAL TD (08:04)
[2018-05-30] MEDS: ARIPiprazole 15 MG TAB (AbiLIFY) PO (08:04)
== END 2018-05-30 13:15 | disposition home or self-care (01) | DRG 885 ==
LOC: M ED 11:48 → M ED INP 18:54 → M PSY 19:27
PROC: 0HQEXZZ Repair Left Lower Arm Skin, External Approach (ICD-10-PCS; principal; 2018-05-23)
PROC: 0HQDXZZ Repair Right Lower Arm Skin, External Approach (ICD-10-PCS; 2018-05-23)
DX: F31.81 Bipolar II disorder (principal); F10.21 Alcohol dependence, in remission; F17.210 Nicotine dependence, cigarettes, uncomplicated; F60.81 Narcissistic personality disorder; S61.512A Laceration without foreign body of left wrist, initial encounter; S61.511A Laceration without foreign body of right wrist, initial encounter; X78.9XXA Intentional self-harm by unspecified sharp object, initial encounter; Y92.009 Unspecified place in unspecified non-institutional (private) residence as the place of occurrence of the external cause; T43.8X2A Poisoning by other psychotropic drugs, intentional self-harm, initial encounter; M54.2 Cervicalgia; M25.511 Pain in right shoulder; R26.89 Other abnormalities of gait and mobility; Z79.899 Other long term (current) drug therapy; Z88.5 Allergy status to narcotic agent; Z88.8 Allergy status to other drugs, medicaments and biological substances; M51.26 Other intervertebral disc displacement, lumbar region; M47.896 Other spondylosis, lumbar region

== ENCOUNTER 2018-06-17 21:37 | Inpatient (IN) | payer MEDICARE, MEDICAID ==
[2018-06-18 01:46] LABS: HEMATOCRIT 40.2 % (42.0-52.0); HEMOGLOBIN 13.5 g/dl (13.5-17.5); MEAN CORPUSCULAR HEMOGLOBIN 30.8 pg (27.0-33.0); MEAN CORPUSCULAR HGB CONC 33.6 g/dl (32.0-36.5); MEAN CORPUSCULAR VOLUME 91.8 fl (80.0-96.0); PLATELET COUNT, AUTOMATED 252 10^3/uL (150-450); RED BLOOD COUNT 4.38 10^6/uL (4.30-6.10); RED CELL DISTRIBUTION WIDTH 12.8 % (11.5-14.5); WHITE BLOOD COUNT 9.7 10^3/uL (4.0-10.0)
[2018-06-18 02:24] LABS: AMPHETAMINES LEVEL URINE NEGATIVE (NEGATIVE); BARBITURATES URINE NEGATIVE (NEGATIVE); BENZODIAZEPINES URINE NEGATIVE (NEGATIVE); CANNABINOIDS URINE NEGATIVE (NEGATIVE); COCAINE METABOLITE URINE NEGATIVE (NEGATIVE); METHADONE URINE NEGATIVE (NEGATIVE); OPIATES URINE NEGATIVE (NEGATIVE); PHENCYCLIDINE URINE NEGATIVE (NEGATIVE)
[2018-06-18 02:28] LABS: ALBUMIN 3.9 GM/DL (3.2-5.2); ALBUMIN/GLOBULIN RATIO 1.15 (1.00-1.93); ALKALINE PHOSPHATASE 102 U/L (45-117); ALT/SGPT 38 U/L (12-78); ANION GAP 6 MEQ/L (8-16); AST/SGOT 33 U/L (7-37); BILIRUBIN,DIRECT 0.2 MG/DL (0.0-0.2); BILIRUBIN,TOTAL 0.4 MG/DL (0.2-1.0); BLOOD UREA NITROGEN 11 MG/DL (7-18); CALCIUM LEVEL 8.6 MG/DL (8.8-10.2); CARBON DIOXIDE LEVEL 29 MEQ/L (21-32); CHLORIDE LEVEL 107 MEQ/L (98-107); CREATININE FOR GFR 0.87 MG/DL (0.70-1.30); ETHYL ALCOHOL (ETHANOL) 0.003 % (0.000-0.010); GLOMERULAR FILTRATION RATE > 60.0 (>49); GLUCOSE, FASTING 97 MG/DL (70-100); SALICYLATE LEVEL 1.7 MG/DL (5.0-30.0); SODIUM LEVEL 142 MEQ/L (136-145); TOTAL PROTEIN 7.3 GM/DL (6.4-8.2)
[2018-06-18 02:29] LABS: ACETAMINOPHEN LEVEL < 2.0 UG/ML (10.0-30.0)
[2018-06-18] MEDS ORDERED: traZODone 50 MG TAB PO (03:30)
[2018-06-18] MEDS ORDERED: HALOPERIDOL 5 MG TAB PO (03:30)
[2018-06-18] MEDS ORDERED: hydrOXYzine 50 MG TAB PO (03:30)
[2018-06-18] MEDS ORDERED: MAALOX 30 ML SUSP *UDC PO (03:30)
[2018-06-18] MEDS ORDERED: LORazepam 2 MG TAB PO (03:30)
[2018-06-18] MEDS: QUEtiapine FUMARATE 100 MG TAB PO ×2 (04:53→21:24)
[2018-06-18] MEDS: GABAPENTIN 300 MG CAP PO ×4 (04:53→21:24)
[2018-06-18] MEDS: NICOTINE 21MG/24HR 1 EA TRANSDERMAL TD (11:00)
[2018-06-19] MEDS: NICOTINE 21MG/24HR 1 EA TRANSDERMAL TD (08:11)
[2018-06-19] MEDS: GABAPENTIN 300 MG CAP PO ×4 (08:11→20:02)
[2018-06-19] MEDS: AUGMENTIN 875 MG TAB PO ×2 (11:48→20:02)
[2018-06-19] MEDS: QUEtiapine FUMARATE 100 MG TAB PO (20:02)
[2018-06-20] MEDS: NICOTINE 21MG/24HR 1 EA TRANSDERMAL TD (08:11)
[2018-06-20] MEDS: AUGMENTIN 875 MG TAB PO ×2 (08:11→20:08)
[2018-06-20] MEDS: GABAPENTIN 300 MG CAP PO ×4 (08:12→20:08)
[2018-06-20] MEDS: MOM 30ML SUSPENSION UDC PO (09:13)
[2018-06-20] MEDS: QUEtiapine FUMARATE 100 MG TAB PO (20:09)
[2018-06-21] MEDS: GABAPENTIN 300 MG CAP PO ×4 (08:03→20:06)
[2018-06-21] MEDS: AUGMENTIN 875 MG TAB PO ×2 (08:03→20:05)
[2018-06-21] MEDS: NICOTINE 21MG/24HR 1 EA TRANSDERMAL TD (08:03)
[2018-06-21] MEDS: ACETAMINOPHEN TAB 650MG DOSE (2X325MG) PO (09:15)
[2018-06-21] MEDS: QUEtiapine FUMARATE 100 MG TAB PO (20:06)
[2018-06-22] MEDS: NICOTINE 21MG/24HR 1 EA TRANSDERMAL TD (08:03)
[2018-06-22] MEDS: GABAPENTIN 300 MG CAP PO ×4 (08:03→20:01)
[2018-06-22] MEDS: AUGMENTIN 875 MG TAB PO ×2 (08:03→20:01)
[2018-06-22] MEDS: QUEtiapine FUMARATE 100 MG TAB PO (20:01)
[2018-06-23] MEDS: NICOTINE 21MG/24HR 1 EA TRANSDERMAL TD (08:05)
[2018-06-23] MEDS: GABAPENTIN 300 MG CAP PO ×2 (08:05→12:09)
[2018-06-23] MEDS: AUGMENTIN 875 MG TAB PO (08:05)
== END 2018-06-23 14:50 | disposition home or self-care (01) | DRG 885 ==
LOC: M ED INP 06-18 03:30 → M ED 21:37 → M PSY 06-18 08:55
DX: F31.9 Bipolar disorder, unspecified (principal); R45.851 Suicidal ideations; Z79.899 Other long term (current) drug therapy; F41.9 Anxiety disorder, unspecified; M54.2 Cervicalgia; M54.5 Low back pain; F17.210 Nicotine dependence, cigarettes, uncomplicated

== ENCOUNTER 2018-07-18 10:22 | Emergency (ER) | payer MEDICARE, MEDICAID ==
[2018-07-18 11:31] LABS: BASO % 0.5 % (0.0-1.0); EOS # 0.1 10^3/uL (0.0-0.50); EOS % 0.7 % (0.0-3.0); HEMATOCRIT 41.1 % (42.0-52.0); HEMOGLOBIN 13.6 g/dl (13.5-17.5); IMMATURE GRANULOCYTE % 0.1 % (0-3.0); LYMPH % 23.6 % (24.0-44.0); MEAN CORPUSCULAR HEMOGLOBIN 30.2 pg (27.0-33.0); MEAN CORPUSCULAR HGB CONC 33.1 g/dl (32.0-36.5); MEAN CORPUSCULAR VOLUME 91.1 fl (80.0-96.0); MONO # 0.6 10^3/uL (0.0-0.8); MONO % 6.5 % (0.0-5.0); NEUTROPHILS # 5.8 10^3/uL (1.8-7.7); NEUTROPHILS % 68.6 % (36.0-66.0); PLATELET COUNT, AUTOMATED 256 10^3/uL (150-450); RED BLOOD COUNT 4.51 10^6/uL (4.30-6.10); RED CELL DISTRIBUTION WIDTH 12.7 % (11.5-14.5); WHITE BLOOD COUNT 8.4 10^3/uL (4.0-10.0)
[2018-07-18 11:39] LABS: ANION GAP 7 MEQ/L (8-16); BLOOD UREA NITROGEN 8 MG/DL (7-18); CALCIUM LEVEL 8.6 MG/DL (8.8-10.2); CARBON DIOXIDE LEVEL 27 MEQ/L (21-32); CHLORIDE LEVEL 106 MEQ/L (98-107); CPK CREATINE PHOSPHOKINASE 127 U/L (39-308); GLOMERULAR FILTRATION RATE > 60.0 (>49); GLUCOSE, FASTING 122 MG/DL (70-100); SODIUM LEVEL 140 MEQ/L (136-145); TROPONIN I < 0.02 NG/ML (< 0.10)
[2018-07-18 13:49] LABS: CPK CREATINE PHOSPHOKINASE 118 U/L (39-308); MB/CK RELATIVE INDEX 1.86 (< OR =4); TROPONIN I < 0.02 NG/ML (< 0.10)
== END 2018-07-18 14:17 | disposition home or self-care (01) ==
LOC: M ED 10:22
DX: R07.89 Other chest pain (principal); R94.31 Abnormal electrocardiogram [ECG] [EKG]; G89.29 Other chronic pain; M54.9 Dorsalgia, unspecified; Z72.0 Tobacco use; Z79.899 Other long term (current) drug therapy; Z88.5 Allergy status to narcotic agent; Z88.8 Allergy status to other drugs, medicaments and biological substances
CPT/HCPCS: 71045

== ENCOUNTER → 2018-08-17 | Outpatient (REF) | payer MEDICARE, MEDICAID ==
[2018-08-17 13:03] LABS: APPEARANCE, URINE CLEAR (CLEAR); BACTERIA, URINE AUTO NEGATIVE (NEGATIVE); BILIRUBIN, URINE AUTO NEGATIVE (NEGATIVE); BLOOD, URINE BLOOD NEGATIVE (NEGATIVE); COLOR, URINE STRAW (YELLOW); GLUCOSE, URINE (UA) AUTO NEGATIVE (NEGATIVE); KETONE, URINE AUTO NEGATIVE (NEGATIVE); LEUKOCYTE ESTERASE, URINE AUTO NEGATIVE (NEGATIVE); NITRITE, URINE AUTO NEGATIVE (NEGATIVE); PROTEIN, URINE AUTO NEGATIVE (NEGATIVE); RBC, URINE AUTO 0 /HPF (0-3); SPECIFIC GRAVITY URINE AUTO 1.004 (1.002-1.035); SQUAMOUS EPITHELIAL CELL UR AU 0 /HPF (0-6); UROBILINOGEN, URINE AUTO 0.2 mg/dL (0.0-2.0); WBC, URINE AUTO 0 /HPF (0-3)
[2018-08-17 13:31] LABS: BASO # 0.1 10^3/uL (0.0-0.2); BASO % 0.7 % (0.0-1.0); EOS # 0.1 10^3/uL (0.0-0.50); EOS % 1.4 % (0.0-3.0); HEMATOCRIT 42.9 % (42.0-52.0); HEMOGLOBIN 14.1 g/dl (13.5-17.5); IMMATURE GRANULOCYTE % 0.3 % (0-3.0); LYMPH # 1.7 10^3/uL (1.5-4.5); LYMPH % 23.3 % (24.0-44.0); MEAN CORPUSCULAR HEMOGLOBIN 30.2 pg (27.0-33.0); MEAN CORPUSCULAR HGB CONC 32.9 g/dl (32.0-36.5); MEAN CORPUSCULAR VOLUME 91.9 fl (80.0-96.0); MONO # 0.5 10^3/uL (0.0-0.8); NEUTROPHILS # 4.9 10^3/uL (1.8-7.7); NEUTROPHILS % 67.3 % (36.0-66.0); PLATELET COUNT, AUTOMATED 279 10^3/uL (150-450); RED BLOOD COUNT 4.67 10^6/uL (4.30-6.10); RED CELL DISTRIBUTION WIDTH 13.2 % (11.5-14.5); WHITE BLOOD COUNT 7.2 10^3/uL (4.0-10.0)
[2018-08-17 13:56] LABS: ALBUMIN 4.2 GM/DL (3.2-5.2); ALKALINE PHOSPHATASE 86 U/L (45-117); ALT/SGPT 29 U/L (12-78); ANION GAP 2 MEQ/L (8-16); AST/SGOT 21 U/L (7-37); BILIRUBIN,TOTAL 0.5 MG/DL (0.2-1.0); BLOOD UREA NITROGEN 11 MG/DL (7-18); CALCIUM LEVEL 9.5 MG/DL (8.8-10.2); CARBON DIOXIDE LEVEL 31 MEQ/L (21-32); CHLORIDE LEVEL 105 MEQ/L (98-107); CREATININE FOR GFR 0.84 MG/DL (0.70-1.30); FERRITIN 62 NG/ML (26-388); GLOMERULAR FILTRATION RATE > 60.0 (>49); GLUCOSE, FASTING 86 MG/DL (70-100); IRON (FE) 85 UG/DL (65-175); POTASSIUM SERUM 4.4 MEQ/L (3.5-5.1); SODIUM LEVEL 138 MEQ/L (136-145); TOTAL PROTEIN 7.2 GM/DL (6.4-8.2)
[2018-08-17 13:58] LABS: ESTIMATED AVERAGE GLUCOSE 100 MG/DL (60-110); HEMOGLOBIN A1c 5.1 %; TOTAL 25(OH) VITAMIN D 31.5 NG/ML (30.0-100.0)
== END ==
LOC: M LAB REF 12:14
DX: R63.1 Polydipsia (principal); Z79.899 Other long term (current) drug therapy
CPT/HCPCS: 83540

== ENCOUNTER → 2018-12-15 | Outpatient (CLI) | payer MEDICARE, MEDICAID ==
[~2018-12-15] MED LIST changes: +ABIL1TAB12 PO; +ALLE10TA2 PO; +AMOX875T2 PO; +ARIP15TAB PO; +CYCL5TAB PO; +DOCU100C16 PO; +DOCU100T8 PO; +DOK100TA PO; +FLON1SPR; +FLON1SPR NARES; +GABA-843 PO; +GABA-845 PO; +HYDR50TA70 PO; +HYDRO50TAB PO; +KETO10TAB PO; +LORA-243 PO; +MELO15TA28 PO; +MELO7.5T7 PO; +MONT10TA2 PO; +NEUR300C PO; +QUET1TAB8 PO; +QUET5TAB PO; +SENN18TA PO; +SENN8.6C PO; +SENN8.6T17 PO; +SERO1TAB PO; +SERO1TAB3 PO; +TRAZ-160 PO; +TRAZO50TA PO
--- NOTE | 2018-12-15 11:46 | REP ---
MR CERVICAL SPINE WITHOUT CONTRAST: HISTORY: Neck pain. COMPARISON: CT 01/28/2018. A disc bulge is present at the C2-3 level. There is minimal effacement of the thecal sac without spinal cord compression. Bilateral uncinate process and left facet hypertrophy are present. These findings produce minimal narrowing of the C2 neural foramina. A disc bugle with associated osteophyte formation is present at the C3-4 level. There is minimal effacement of the thecal sac without spinal cord compression. Bilateral uncinate process hypertrophy is present. This produces minimal narrowing of the C3 neural foramina. A disc bulge with associated osteophyte formation is present at the C4-5 level. There is moderate effacement of the thecal sac without spinal cord compression. Bilateral uncinate process and facet hypertrophy are present. These findings produce moderate and mild narrowing of the right and left C4 neural foramina respectively. A disc bulge and small central disc protrusion with associated osteophyte formation are present at the C5-6 level. There is moderate effacement of the thecal sac without spinal cord compression. Bilateral uncinate process hypertrophy is present. This produces moderate narrowing of the C5 neural foramina. A disc bugle with associated osteophyte formation is present at the C6-7 level. There is moderate effacement of the thecal sac without spinal cord compression. Bilateral uncinate process hypertrophy is present. This produces moderate narrowing of the C6 neural foramina. There is no other disc bulge or herniation. The remaining neural foramina are patent. The spinal cord is normal in signal intensity. The C3-4 through C6-7 intervertebral discs are decreased in height consistent with disc degeneration. Normal signal intensity is present in the cervical vertebral bodies. IMPRESSION: There is cervical spondylosis at the C2-3 through C6-7 levels without spinal cord compression. Electronically Signed by Elder Govea MD 12/15/2018 11:52 A
== END ==
LOC: M RAD 09:45
DX: M47.812 Spondylosis without myelopathy or radiculopathy, cervical region (principal); M50.20 Other cervical disc displacement, unspecified cervical region

== ENCOUNTER 2019-05-06 06:43 | Inpatient (IN) | payer MEDICARE, MEDICAID ==
[~2019-05-06] VITALS: Ht 180.3 cm; Wt 71.8 kg
[~2019-05-06 06:43] MED LIST changes: -/QUET10TA PO; -ALLE10TA2 PO; -ARIP15TAB PO; +ARIP1TAB10 PO; +HYDR1TAB33 PO; -HYDRO50TAB PO; +LORA-753 PO; -QUET20XRTB OR; +SERO200T43 OR; -TRAZ-160 PO; +TRAZ-252 PO; +TRAZ1TAB10 PO; -TRAZO50TA PO
[2019-05-06 07:35] LABS: HEMATOCRIT 42.1 % (42.0-52.0); HEMOGLOBIN 14.3 g/dl (13.5-17.5); MEAN CORPUSCULAR HEMOGLOBIN 32.3 pg (27.0-33.0); PLATELET COUNT, AUTOMATED 196 10^3/uL (150-450); RED BLOOD COUNT 4.43 10^6/uL (4.30-6.10); WHITE BLOOD COUNT 6.8 10^3/uL (4.0-10.0)
[2019-05-06] MEDS ORDERED: NS 1,000 ML IV ONE (08:00)
[2019-05-06 08:07] LABS: ACETAMINOPHEN LEVEL < 2.0 UG/ML (10.0-30.0); ALBUMIN 3.8 GM/DL (3.2-5.2); ALT/SGPT 25 U/L (12-78); BILIRUBIN,DIRECT 0.1 MG/DL (0.0-0.2); BILIRUBIN,TOTAL 0.6 MG/DL (0.2-1.0); BLOOD UREA NITROGEN 13 MG/DL (7-18); CALCIUM LEVEL 8.7 MG/DL (8.8-10.2); CARBON DIOXIDE LEVEL 28 MEQ/L (21-32); CHLORIDE LEVEL 108 MEQ/L (98-107); CREATININE FOR GFR 0.97 MG/DL (0.70-1.30); ETHYL ALCOHOL (ETHANOL) < 0.003 % (0.000-0.010); GLOMERULAR FILTRATION RATE > 60.0 (>49); GLUCOSE, FASTING 109 MG/DL (70-100); POTASSIUM SERUM 3.9 MEQ/L (3.5-5.1); SALICYLATE LEVEL 2.7 MG/DL (5.0-30.0); SODIUM LEVEL 140 MEQ/L (136-145); TOTAL PROTEIN 6.9 GM/DL (6.4-8.2)
[2019-05-06 08:45] LABS: AMPHETAMINES LEVEL URINE NEGATIVE (NEGATIVE); BARBITURATES URINE NEGATIVE (NEGATIVE); BENZODIAZEPINES URINE NEGATIVE (NEGATIVE); CANNABINOIDS URINE NEGATIVE (NEGATIVE); COCAINE METABOLITE URINE NEGATIVE (NEGATIVE); METHADONE URINE NEGATIVE (NEGATIVE); OPIATES URINE NEGATIVE (NEGATIVE); PHENCYCLIDINE URINE NEGATIVE (NEGATIVE)
[2019-05-06] MEDS ORDERED: ARIP1TAB10 PO (11:37)
[2019-05-06] MEDS ORDERED: PROAAER10 INH (11:37)
[2019-05-06] MEDS ORDERED: GABAPENTIN 300 MG CAP PO ONE ×2 (11:45)
[2019-05-06] MEDS ORDERED: NICOTINE 21MG/24HR 1 EA TRANSDERMAL TD ONE (11:45)
[2019-05-06] MEDS ORDERED: MAALOX 30 ML SUSP *UDC PO PRN (12:30)
[2019-05-06] MEDS ORDERED: MOM 30ML SUSPENSION UDC PO PRN (12:30)
[2019-05-06] MEDS ORDERED: traZODone 50 MG TAB PO PRN (12:30)
[2019-05-06] MEDS ORDERED: ACETAMINOPHEN TAB 650MG DOSE (2X325MG) PO PRN (12:30)
[2019-05-06] MEDS ORDERED: QUET1TAB8 PO (13:14)
[2019-05-06] MEDS ORDERED: MIRA3350 PO (13:14)
[2019-05-06] MEDS ORDERED: GABA-843 PO (13:14)
[2019-05-06] MEDS ORDERED: FISH1000 PO (13:14)
[2019-05-06] MEDS ORDERED: IBUP1TAB6 PO (13:14)
[2019-05-06 14:18] VITALS: BP 115/66
[2019-05-06] MEDS ORDERED: SENNA 8.6 MG TAB (SENOKOT) PO PRN (17:15)
[2019-05-06] MEDS ORDERED: ALBUTEROL 90 MCG/ACT 8GM HFA INHALER INH PRN (17:15)
[2019-05-06] MEDS ORDERED: MIRALAX *UNIT DOSE* 17GM PACKET PO PRN (17:15)
--- NOTE | 2019-05-06 19:14 | ECGEPIP ---
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
[2019-05-06] MEDS: GABAPENTIN 300 MG CAP PO SCH (20:01)
[2019-05-06] MEDS: ARIPiprazole 15 MG TAB (AbiLIFY) PO SCH (20:01)
[2019-05-06] MEDS: QUEtiapine FUMARATE 100 MG TAB PO SCH (20:01)
[2019-05-06 22:00] VITALS: BP 115/66
[2019-05-07 06:48] VITALS: BP 124/73
[2019-05-07] MEDS: GABAPENTIN 300 MG CAP PO SCH ×4 (08:05→20:37)
[2019-05-07] MEDS: LORATADINE 10 MG TAB PO SCH (08:05)
[2019-05-07] MEDS: FLUTICASONE PROP 0.05% NASAL SPRAY 16 GM (FLONASE) SCH (08:06)
[2019-05-07] MEDS: NICOTINE 21MG/24HR 1 EA TRANSDERMAL TD SCH (09:40)
[2019-05-07 12:06] VITALS: BP 108/64
[2019-05-07] MEDS: MELOXICAM (MOBIC) 7.5 MG TAB PO SCH (14:33)
--- NOTE | 2019-05-07 16:04 | HPEPDOC ---
General Date of Admission May 06, 2019 at 12:21 Date of Service: May 07, 2019 Chief Complaint The patient is a 68-year-old male admitted with a reason for visit of Major Depressive Disorder. Source: Patient Exam Limitations: No limitations Severity: Moderate Associated Symptoms: Denies Symptoms, Loss of appetite History of Present Illness 68 year old male with PMH of Bipolar disorder, chronic pain in neck and low back, degenerative disc disease, spinal stenosis at the neck, gait instability walks with a cane was admitted to Psych unit for suicidal ideations. I am seeing the patient for medical H and P. Today he complained of neck pain and low back pain , dull aching some times sharp about 4/10 in intensity and sometimes it radiates down both his legs. Home Medications Scheduled Aripiprazole (Aripiprazole) 15 Mg Tablet, 15 MG PO QHS, (Reported) Fluticasone Propionate (Flonase Allergy Relief) 50 Mcg/Act Spr, 2 SPRAY NA DAILY, (Reported) Gabapentin (Gabapentin) 300 Mg Capsule, 300 MG PO QID, (Reported) Loratadine (Allergy Relief) 10 Mg Tab, 10 MG PO DAILY, (Reported) [place]-3 Fatty Acids/Fish Oil (Fish Oil 1,000 mg Capsule) 1 Each Capsule, 1,000 MG PO DAILY, (Reported) Quetiapine Fumarate (Quetiapine Fumarate) 100 Mg Tablet, 100 MG PO QHS, (R eported) Scheduled PRN Albuterol Sulfate (Proair Hfa) 8.5 Gm Hfa.aer.ad, 2 PUFFS INH QID PRN for SOB/WHEEZING, (Reported) Ibuprofen (Ibuprofen) 600 Mg Tablet, 600 MG PO Q6H PRN for PAIN, (Reported) Polyethylene Glycol 3350 (Miralax) 119 Gm Powder, 17 GM PO DAILY PRN for CONSTIPATION, (Reported) dilute in 8 ounces of water or juice Sennosides (Senna Laxative) 8.6 Mg Tab, 8.6 MG PO DAILY PRN for CONSTIPATION, (Reported) Allergies Coded Allergies: divalproex sodium (Verified Adverse Reaction, Mild, DROWSINESS, 05/06/19) tramadol (Verified Adverse Reaction, Mild, HYPER, 05/06/19) Past Medical History Medical History Anxiety Depression History of SI Chronic neck pain Chronic right shoulder pain Chronic back pain due to degenrative disc diseases and facet arthropathy, bulged discs. Allergic rhinitis Unsteady gait. Uses cane. Surgical History Hernia repair, Tonsillectomy , injection at his back Family History Mother: , dementia Father: , COPD Siblings: No biological siblings Children: None Social History * Smoker: current smoker Alcohol: Denies Drugs: cocaine, other (speed) A-FIB/CHADSVASC A-FIB History Current/History of A-Fib/PAF?: No Review of Systems Constitutional: Denies: Chills, Fever, Night Sweats Eyes: Denies: Pain, Vision change ENT: Denies: Head Aches, Ear Pain, Dysphagia Skin: Denies: Rash, Lesions, Breakdown Pulmonary: Denies: Dyspnea, Cough Cardiovascular: Denies: Chest Pain, Palpitations, Orthopnea, Paroxysmal Noc. Dyspnea, Lt Headedness Gastrointestinal: Denies: Nausea, Vomiting, Abdominal Pain, Diarrhea Genitourinary: Denies: Dysuria, Frequency, Incontinence, Retention Hematologic: Denies: Bruising, Bleeding Excessively Musculoskeletal: Reports: Neck Pain, Back Pain, Joint Pain (both hips) Neurological: Denies: Weakness, Numbness, Change in speech, Confusion Psych: Reports: Depression, Thoughts of Self Harm Physical Examination General Exam: Positive: Alert, Cooperative, No Acute Distress Eye Exam: Positive: PERRLA, Conjunctiva & lids normal, EOMI; Negative: Sclera icteric ENT Exam: Positive: Atraumatic, Mucous membr. moist/pink, Pharynx Normal Neck Exam: Positive: Supple; Negative: JVD, thyromegaly Chest Exam: Positive: Clear to auscultation, Normal air movement Heart Exam: Positive: Rate Normal, Regular Rhythm, Normal S1, Normal S2; Negative: Murmurs, Rubs Abdomen Exam: Positive: Normal bowel sounds, Soft; Negative: Tenderness, Hepatospenomegaly Extremity Exam: Positive: Normal pulses; Negative: Clubbing, Cyanosis, Edema Skin Exam: Positive: Nl turgor and temperature; Negative: Breakdown, Lesion Vital Signs Vital Signs Date Time Temp Pulse Resp B/P (MAP) Pulse Ox O2 Delivery O2 Flow Rate FiO2 05/07/19 12:06 98.9 71 16 108/64 (79) 05/06/19 22:00 95 05/06/19 13:36 Room Air Assessment/Plan 68 year old male with PMH of Bipolar disorder, chronic pains in different regions, degenerative disc disease, gait instability walks with a cane was admitted to Psych unit for suicidal ideations. I am seeing the patient for medical H and P. Bipolar disorder/ suicidal ideas management asper psychiatry Neck pain , back pain degenerative disc disease, facet arthropathy, spinal stenosis continue gabapentin will add meloxicam as per recommendation of pain management who saw him during his last admission. Gait instability continue to use cane on ambulation Plan / VTE VTE Prophylaxis Ordered?: No (frequently ambulatory) EVERETT WOOD MD May 07, 2019 12:49
[2019-05-07 18:14] VITALS: BP 112/72
[2019-05-07 20:00] VITALS: BP 125/59
[2019-05-07] MEDS: ARIPiprazole 15 MG TAB (AbiLIFY) PO SCH (20:36)
[2019-05-07] MEDS: QUEtiapine FUMARATE 100 MG TAB PO SCH (20:36)
[2019-05-07] MEDS ORDERED: NICOTINE 21MG/24HR 1 EA TRANSDERMAL TD SCH (21:00)
[2019-05-08 06:18] VITALS: BP 119/58
[2019-05-08] MEDS: LORATADINE 10 MG TAB PO SCH (09:12)
[2019-05-08] MEDS: NICOTINE 21MG/24HR 1 EA TRANSDERMAL TD SCH (09:12)
[2019-05-08] MEDS: MELOXICAM (MOBIC) 7.5 MG TAB PO SCH (09:12)
[2019-05-08] MEDS: GABAPENTIN 300 MG CAP PO SCH ×2 (09:13→12:37)
[2019-05-08] MEDS: FLUTICASONE PROP 0.05% NASAL SPRAY 16 GM (FLONASE) SCH (09:13)
--- NOTE | 2019-05-08 11:02 | MHIPNPDOC ---
[facility] Progress Note Progress Note DATE OF SERVICE: 05/08/19 HISTORY: Per Dr. Gibbons admit note: "He is 68 years old. He has a history of bipolar disorder. He has had previous hospitalizations here, last one was last June 2018, please refer to the summary for details related to the circumstances of that admission. He came in as he felt increasingly depressed, lately, has a diagnosis of bipolar disorder, the recent heat wave, with lack of air conditioning, the increased temperature in his apartment, led to the patient feeling irritable, further frustrated, and then began thinking of killing himself, says had various dreams, called the ambulance, was brought here. He says he was disappointed the driver was rather rude, and somewhat dismissive of the patient's complaints. He says he has been irritable, depressed, for a little while now, says feels there is lack of progress, particularly in terms of improving his conditions at home, in his apartment, says there is a baseball sewer hand trying to work on getting, for example, air conditioning. He says he tends to keep to himself, when friends call, which is not very often, generally does not want to engage with them, on occasions will have a few beers with friends, but says that has been quite awhile.He has apparently had possible falls in the apartment as well lately, has felt weak. He says he smoked cannabis for the first time in 20 years about three days ago, hoping that would improve his mood, but it did not. It does not show up in his urine toxicology either. He says he does not see a psychiatrist, sees primary care, at [facility], who prescribe his psychotropic medications, which include Abilify 15 mg at night, quetiapine 100 mg at night. He has been on them for awhile. He also takes gabapentin, mostly for pain in his shoulders and neck and arms, says it does not make him drowsy. He has been on it for quite awhile." VITAL SIGNS: See below. NEW TEST RESULTS: See below. CURRENT MEDICATIONS: See below. MENTAL STATUS EXAMINATION: Patient is a 68-year old male, who is clean, dressed in hospital attire, walks with a cane Speech: Is reg rate/rhythm/volume Language skills are average Thought processes including: linear, logical Thought content: denies SI/HI Abstract reasoning, and computation: intact. Description of associations: appropriate. Description of abnormal or psychotic thoughts: denies hallucinations and delusions. Judgment: good Insight: poor Orientation: x3 Recent and remote memory: intact Attention span and concentration: good Language: appropriate Fund of knowledge: average Mood: "good" Affect: euthymic, full, congruent DIAGNOSES: 1. Bipolar disorder, current episode depressed, moderate to severe, without psychotic features. ASSESSMENT:Pt seen and states that his mood is good today States he slept well last night. Feels he is tolerating his medications and they're beneficial. He is attending groups and finding them helpful. States he'd like to go home soon and continue to work with his PCP to get an air conditioner for his home for his COPD. Advised will reach out to PCP while he's here to aid him with that. He denies depression, anxiety, insomnia, SI/HI, hallucinations, delusions. Pt feels safe here. MANAGEMENT PLAN: D/c home tomorrow AbiLIFY 15 mg QHS Gabapentin 300 mg QID SEROquel 100 mg QHS TIME SPENT: 30 minutes. Vital Signs Vital Signs Date Time Temp Pulse Resp B/P (MAP) Pulse Ox O2 Delivery O2 Flow Rate FiO2 05/08/19 06:18 97.8 109 18 119/58 (78) 05/06/19 22:00 95 05/06/19 13:36 Room Air Current Medications Current Medications Acetaminophen (Tylenol Tab) 650 mg Q6HP PRN PO HEADACHE or DISCOMFORT Last administered on 05/07/19at 06:16; Start 05/06/19 at 12:30 Al Hydrox/Mg Hydrox/Simethicone (Mylanta) 30 ml Q4HP PRN PO HEARTBURN/INDIGESTION; Start 05/06/19 at 12:30 Albuterol Sulfate (Proventil, Ventolin Hfa) 2 puff QID PRN INH SOB/WHEEZING Last administered on 05/07/19at 06:32; Start 05/06/19 at 17:15 Aripiprazole (AbiLIFY) 15 mg QHS PO Last administered on 05/07/19at 20:36; Start 05/06/19 at 21:00 Fluticasone Propionate (Flonase 0.05% Nasal [place]) 2 spray DAILY NA Last administered on 05/08/19at 09:13; Start 05/07/19 at 09:00 Gabapentin (Neurontin) 300 mg QID PO Last administered on 05/08/19at 09:13; Start 05/06/19 at 21:00 Home Med (Med Rec Complete!) ASDIRECTED XX ; Start 05/06/19 at 13:30; Stop 05/06/19 at 13:30; Status DC Loratadine (Claritin) 10 mg DAILY PO Last administered on 05/08/19at 09:12; Start 05/07/19 at 09:00 Magnesium Hydroxide (Milk Of Magnesia) 30 ml DAILYPRN PRN PO CONSTIPATION; Start 05/06/19 at 12:30 Meloxicam (Mobic) 15 mg DAILY PO Last administered on 05/08/19at 09:12; Start 05/07/19 at 09:00 Nicotine (Nicoderm Cq 21mg) 1 patch DAILY TD Last administered on 05/08/19at 09 :12; Start 05/07/19 at 09:00 Nicotine (Nicoderm Cq 21mg) 1 patch QHS TD ; Start 05/07/19 at 21:00; Stop 05/07/19 at 21:00; Status DC Polyethylene Glycol (Miralax) 1 pkt DAILY PRN PO CONSTIPATION; Start 05/06/19 at 17:15 Quetiapine Fumarate (SEROquel) 100 mg QHS PO Last administered on 05/07/19at 20:36; Start 05/06/19 at 21:00 Senna (Senokot) 1 tab DAILY PRN PO CONSTIPATION; Start 05/06/19 at 17:15 Trazodone HCl (Desyrel) 50 mg QHSP PRN PO INSOMNIA; Start 05/06/19 at 12:30; Stop 05/06/19 at 17:19; Status DC Allergies Coded Allergies: divalproex sodium (Verified Adverse Reaction, Mild, DROWSINESS, 05/06/19) tramadol (Verified Adverse Reaction, Mild, HYPER, 05/06/19) MARLYN LUIS DO May 08, 2019 11:02 am
[2019-05-08 18:00] VITALS: BP 105/61
--- NOTE | 2019-05-08 18:18 | MHHPE ---
DATE OF ADMISSION: 05/06/2019 VITAL SIGNS: Blood pressure 124/73, pulse 101, temperature 98.6. CHIEF COMPLAINT: He feels depressed. SUBJECTIVE: He is 68 years old. He has a history of bipolar disorder. He has had previous hospitalizations here, last one was last June 2018, please refer to the summary for details related to the circumstances of that admission. He came in as he felt increasingly depressed, lately, has a diagnosis of bipolar disorder, the recent heat wave, with lack of air conditioning, the increased temperature in his apartment, led to the patient feeling irritable, further frustrated, and then began thinking of killing himself, says had various dreams, called the ambulance, was brought here. He says he was disappointed the goat driver was rather rude, and somewhat dismissive of the patient's complaints. He says he has been irritable, depressed, for a little while now, says feels there is lack of progress, particularly in terms of improving his conditions at home, in his apartment, says there is a video tape duplicator trying to work on getting, for example, air conditioning. He says he tends to keep to himself, when friends call, which is not very often, generally does not want to engage with them, on occasions will have a few beers with friends, but says that has been quite awhile. He has apparently had possible falls in the apartment as well lately, has felt weak. He says he smoked cannabis for the first time in 20 years about three days ago, hoping that would improve his mood, but it did not. It does not show up in his urine toxicology either. He says he does not see a psychiatrist, sees primary care, at [facility], who prescribe his psychotropic medications, which include Abilify 15 mg at night, quetiapine 100 mg at night. He has been on them for awhile. He also takes gabapentin, mostly for pain in his shoulders and neck and arms, says it does not make him drowsy. He has been on it for quite awhile. PAST PSYCHIATRIC HISTORY: As indicated above, please refer to previous summaries. MEDICATIONS: Please see the list. These include the Seroquel and Abilify mentioned above, as well as loratadine 10 mg daily, gabapentin 300 mg four times a day, omega-3 fatty acids, fish oil. He takes Flonase. He also takes albuterol inhalers as needed. SOCIAL HISTORY: He lives on his own in an apartment locally. He says he does not drink, only occasionally, and used cannabis for the first time, he says, in 20 years a few days ago. MENTAL STATUS EXAMINATION: Fair hygiene, uses a cane, walks slowly, is cooperative, appears rather thin. No agitation. No psychomotor retardation. Displays mild irritability, affect displays a fair range, vague on suicidal thoughts, none currently, no firm plans. No homicidal ideas or intents. No evidence of any psychosis. Cognition grossly intact. Judgment and insight fair. No fluctuation of consciousness. Intellect average. ASSESSMENT: 1. Bipolar disorder, current episode depressed, moderate to severe, without psychotic features. 2. Poor social supports. 3. Chronic pain. 4. Recent heat wave, and difficult conditions. He has been depressed, irritable at times, has not had a manic episode for awhile, further frustrated with the recent heat, and the impact it has had within the apartment, and that has impacted his mood even further. PLAN: He is admitted to the inpatient psychiatry unit and placed on relevant precautions. We will look at obtaining collateral information. I would suggest continuing with his current medication regimen, the Abilify and the Seroquel. I do not think they need changing. I would suggest contacting his video tape duplicator, to see if matters within his apartment can be improved, and to optimize them. He will be involved in individual group and milieu therapy. He will receive a medicine consult if indicated, and he will be discharged with followup once he is stable. I would anticipate a short stay, 5-7 days. He will be seeing the psychiatrist and the treatment team tomorrow. The assessment took 30 minutes.
[2019-05-08] MEDS: QUEtiapine FUMARATE 100 MG TAB PO SCH (20:21)
[2019-05-08] MEDS: GABAPENTIN 300 MG CAP PO PRN (20:21)
[2019-05-08] MEDS: ARIPiprazole 15 MG TAB (AbiLIFY) PO SCH (20:21)
[2019-05-09 06:41] VITALS: BP 90/60
[2019-05-09] MEDS: NICOTINE 21MG/24HR 1 EA TRANSDERMAL TD SCH (08:42)
[2019-05-09] MEDS: FLUTICASONE PROP 0.05% NASAL SPRAY 16 GM (FLONASE) SCH (08:42)
[2019-05-09] MEDS: LORATADINE 10 MG TAB PO SCH (08:43)
[2019-05-09] MEDS: GABAPENTIN 300 MG CAP PO PRN (08:44)
--- NOTE | 2019-05-09 08:44 | MHDSPDOC ---
[facility] Discharge Summary Discharge Summary DATE OF ADMISSION: May 06, 2019 at 12:21 pm DATE OF DISCHARGE: May 09, 2019 DISCHARGE DIAGNOSES: 1. Bipolar disorder, current episode depressed, moderate to severe, without psychotic features. REASON FOR ADMISSION: Per Dr. Gibbons admit note: "He is 68 years old. He has a history of bipolar disorder. He has had previous hospitalizations here, last one was last June 2018, please refer to the summary for details related to the circumstances of that admission. He came in as he felt increasingly depressed, lately, has a diagnosis of bipolar disorder, the recent heat wave, with lack of air conditioning, the increased temperature in his apartment, led to the patient feeling irritable, further frustrated, and then began thinking of killing himself, says had various dreams, called the ambulance, was brought here. He says he was disappointed the funeral driver was rather rude, and somewhat dismissive of the patient's complaints. He says he has been irritable, depressed, for a little while now, says feels there is lack of progress, particularly in terms of improving his conditions at home, in his apartment, says there is a drop man trying to work on getting, for example, air conditioning. He says he tends to keep to himself, when friends call, which is not very often, generally does not want to engage with them, on occasions will have a few beers with friends, but says that has been quite awhile.He has apparently had possible falls in the apartment as well lately, has felt weak. He says he smoked cannabis for the first time in 20 years about three days ago, hoping that would improve his mood, but it did not. It does not show up in his urine toxicology either. He says he does not see a psychiatrist, sees primary care, at [facility], who prescribe his psychotropic medications, which include Abilify 15 mg at night, quetiapine 100 mg at night. He has been on them for awhile. He also takes gabapentin, mostly for pain in his shoulders and neck and arms, says it does not make him drowsy. He has been on it for quite awhile." CONSULTANTS INVOLVED: none TREATMENT AND PROGRESS ON THE UNIT : [facility], seen for psychiatric assessment and restarted on his outpatient medication abilify 15mg qhs, Gabapentin 300 mg qid, and seroquel 100mg qhs. Pt found his medications beneficial and tolerated them well. He attended groups daily during his stay. His symptoms improved with treatment. On day of discharge he denied depression, anxiety, insomnia, SI/HI, hallucinations, delusions. He was discharged home with follow-up at [facility]. He felt safe for discharge. DISCHARGE ASSESSMENT: Pt seen and states that his mood is good today and that he's looking forward to going home today. States he slept well last night. Feels he is tolerating his medications and they're beneficial. He is attending groups and finding them helpful. States he will continue to work with his PCP to get an air conditioner for his home for his COPD. He denies depression, anxiety, insomnia, SI/HI, hallucinations, delusions. Pt feels safe to be discharged home. MENTAL STATUS EXAMINATION ON DISCHARGE: Patient is a 68-year old male, who is clean, dressed in hospital attire, walks with a cane Speech: Is reg rate/rhythm/volume Language skills are average Thought processes including: linear, logical Thought content: denies SI/HI Abstract reasoning, and computation: intact. Description of associations: appropriate. Description of abnormal or psychotic thoughts: denies hallucinations and delusi ons. Judgment: good Insight: poor Orientation: x3 Recent and remote memory: intact Attention span and concentration: good Language: appropriate Fund of knowledge: average Mood: "good" Affect: euthymic, full, congruent MEDICATIONS ON DISCHARGE: AbiLIFY 15 mg QHS Gabapentin 300 mg QID SEROquel 100 mg QHS PLAN/FOLLOWUP ARRANGEMENTS: D/c home with follow-up at [facility]. The amount of time spent in the coordination of care for this patient was approximately 30 minutes. Vital Signs/I&Os Vital Signs Date Time Temp Pulse Resp B/P (MAP) Pulse Ox O2 Delivery O2 Flow Rate FiO2 05/09/19 06:41 97.8 69 12 90/60 (70) 05/06/19 22:00 95 05/06/19 13:36 Room Air Medications Scheduled Aripiprazole (Aripiprazole) 15 Mg Tablet, 15 MG PO QHS for bipolar d/o, #10 Fluticasone Propionate (Flonase Allergy Relief) 50 Mcg/Act Spr, 2 SPRAY NA DAILY, (Reported) Gabapentin (Gabapentin) 300 Mg Capsule, 300 MG PO QID for pain, #40 Loratadine (Allergy Relief) 10 Mg Tab, 10 MG PO DAILY, (Reported) [place]-3 Fatty Acids/Fish Oil (Fish Oil 1,000 mg Capsule) 1 Each Capsule, 1,000 MG PO DAILY, (Reported) Quetiapine Fumarate (Quetiapine Fumarate) 100 Mg Tablet, 100 MG PO QHS for bipolar d/o, #10 Scheduled PRN Albuterol Sulfate (Proair Hfa) 8.5 Gm Hfa.aer.ad, 2 PUFFS INH QID PRN for SOB/WHEEZING, (Reported) Ibuprofen (Ibuprofen) 600 Mg Tablet, 600 MG PO Q6H PRN for PAIN, (Reported) Polyethylene Glycol 3350 (Miralax) 119 Gm Powder, 17 GM PO DAILY PRN for CONSTIPATION, (Reported) dilute in 8 ounces of water or juice Sennosides (Senna Laxative) 8.6 Mg Tab, 8.6 MG PO DAILY PRN for CONSTIPATION, (Reported) Allergies Coded Allergies: divalproex sodium (Verified Adverse Reaction, Mild, DROWSINESS, 05/06/19) tramadol (Verified Adverse Reaction, Mild, HYPER, 05/06/19) MARLYN LUIS DO May 09, 2019 8:44 am
[2019-05-09] MEDS ORDERED: GABA-843 PO (08:49)
[2019-05-09] MEDS ORDERED: QUET1TAB8 PO (08:49)
[2019-05-09] MEDS ORDERED: ARIP1TAB10 PO (08:49)
--- NOTE | 2019-05-10 14:53 | IPN ---
DATE: 05/08/2019 He is a 68-year-old male who was admitted to the inpatient mental health unit for major depressive disorder. ALLERGIES: DEPAKOTE, TRAMADOL. PAST MEDICAL HISTORY: Includes: Anxiety. Depression. History of suicidal ideation. Chronic neck pain. Chronic right shoulder pain. Chronic back pain due to degenerative disc disease, facet arthropathy, bulged disc. Allergic rhinitis. Unsteady gait, and he uses a cane. It had been recommended to try meloxicam for some of his complaints of his osteoarthritic pain, especially in the knees and hip. He states it gave him severe heartburn. I offered something for the heartburn or the gastroesophageal reflux disease (GERD); he declined that as well as any further meloxicam. He was offered a consult to the pain clinic, but states he has had shots and injections and without any good response and does not wish to try again. He will continue to use his cane for ambulation and balance. His history validates good response with Claritin. Otherwise no physical complaints. Ten-systems review is otherwise unremarkable. Urine toxicology was negative. Vital signs have been stable. Other than the chronic pain, ten-systems review is unremarkable. OBJECTIVE: Blood pressure 119/60, pulse 100, respirations 18, temperature 97.8. Height 71 inches, weight 71.8 kg, body mass index (BMI) 22.1 The patient is alert and oriented times three. Pupils equal and reactive to light. Extraocular movements intact. Cornea and sclerae clear. Conjunctivae is normal. No facial asymmetry. Pharynx: Tongue and gums pink and moist. Tongue is midline. Neck is supple without lymphadenopathy. No thyromegaly. No goiter. Carotids 2+ without bruits. Chest: Clear to auscultation without wheeze or retractions. Heart is regular. Abdomen: Benign. Bowel sounds positive. Genital/Rectal: Not done. Extremities: Show arthritic changes. No cyanosis, clubbing or edema. Peripheral pulses equal and palpable bilaterally. Skin is warm and dry. IMPRESSION AND PLAN: Psychiatric plan per psychiatry. Degenerative disc disease. Osteoarthritic pain. Meloxicam was added. Patient states it gave him heartburn. He does not wish to take it again. He states the heartburn is gone. I offered something for heartburn. He states that he does not need it at this time. He will let us know if he does, and we will follow as needed.
== END 2019-05-09 11:20 | disposition home or self-care (01) | DRG 885 ==
LOC: M ED 06:43 → M ED INP 12:21 → M PSY 13:50
PROVIDERS: ADMIT Psychiatry & Neurology Psychiatry; ATTEND Psychiatry & Neurology Psychiatry
DX: F31.4 Bipolar disorder, current episode depressed, severe, without psychotic features (principal); R45.851 Suicidal ideations; Z79.899 Other long term (current) drug therapy; Z88.8 Allergy status to other drugs, medicaments and biological substances; R26.89 Other abnormalities of gait and mobility; R41.9 Unspecified symptoms and signs involving cognitive functions and awareness; M51.36 Other intervertebral disc degeneration, lumbar region; J30.9 Allergic rhinitis, unspecified; M54.2 Cervicalgia

== ENCOUNTER → 2019-06-15 | Outpatient (CLI) | payer MEDICARE, MEDICAID ==
[~2019-06-15] MED LIST changes: +FISH1000 PO; +IBUP1TAB6 PO; +MIRA3350 PO; +PROAAER10 INH
--- NOTE | 2019-06-16 08:32 | REP ---
MRI of the lumbar spine without contrast Indication: Chronic back pain. Comparison: MRI of the lumbar spine of 06/27/2016. Technique: MRI of the lumbar spine was performed utilizing sagittal STIR, T1 and T2, and axial T1 and T2 weighted imaging. No intravenous contrast was administered. Findings: There is mild dextrocurvature of the lumbar spine with straightening of lordosis. There is a one - 2 mm retrolisthesis of L2 on L3 and L3 on L4. Small T2 and T1 hyperintense rounded lesions within the L3 and L5 vertebral bodies consistent with hemangiomas are redemonstrated. There is mild fatty marrow degenerative change along the superior endplate of L4. Vertebral body heights are maintained. There is similar loss of disc height most notably at L5 S1. There is disc desiccation at L2-S1. The conus medullaris terminates at the level of T12. There is similar appearance of fatty atrophy of the posterior paraspinal muscles at the level of the sacrum. Level specific observations: L1-L2: No significant spinal canal stenosis or neural foraminal narrowing. L2-L3: Diffuse disc bulge eccentric to the right. Bilateral facet arthropathy. Mild right neural foraminal narrowing. No significant spinal canal stenosis. L3-L4: Annular fissure. Diffuse disc bulge with superimposed right paracentral disc protrusion, unchanged. Bilateral facet arthropathy. Mild bilateral neural foraminal narrowing, greater on the right. No significant spinal canal stenosis. L4-L5: Annular fissure. Diffuse disc bulge with central disc protrusion, unchanged. Indentation along the ventral thecal sac. Bilateral facet arthropathy. No significant spinal canal stenosis. L5-S1: Mild disc bulge. Unchanged. Impression: When compared to the MRI lumbar spine of 06/27/2016, there is no significant change in multilevel spondylosis. Annular fissures and disc protrusions at L3-L4 and L4-L5, not significantly changed. Mild neural foraminal narrowing on the right at L2-L3 and bilaterally at L3-L4, not significantly changed. Electronically Signed by Lee Reddy MD 06/16/2019 08:23 A
== END ==
LOC: M RAD 15:49
PROVIDERS: ATTEND Family Medicine
DX: M54.5 Low back pain (principal)

== ENCOUNTER → 2019-08-07 | Outpatient (CLI) | payer MEDICARE, MEDICAID ==
--- NOTE | 2019-08-08 08:12 | REP ---
MRI thoracic spine: 08/07/2019. Indication: Thoracic pain. Comparison: None. Technique: Multiplanar short and long TR sequences of the thoracic spine were performed. Findings: Vertebral body alignment is anatomic. There is a small T5 interosseous hemangioma. No abnormal cord signal is present. There are no thoracic disc herniations or areas of significant spinal canal / neural foraminal narrowing. Impression: No areas of significant spinal canal or neural foraminal narrowing. No disc herniations. Electronically Signed by Corey Castillo DO 08/08/2019 08:04 A
== END ==
LOC: M RAD 16:38
PROVIDERS: ATTEND Family Medicine
DX: M54.89 Other dorsalgia (principal)

== ENCOUNTER 2019-12-30 08:14 | Emergency (ER) | payer MEDICARE, MEDICAID ==
[~2019-12-30] VITALS: Ht 180.3 cm; Wt 68.4 kg
[~2019-12-30 08:14] MED LIST changes: -MONT10TA2 PO; +MONT10TA4 PO; +QUET100T2 PO; -QUET1TAB8 PO
[2019-12-30] MEDS ORDERED: HYDR-3713 PO (08:22)
[2019-12-30 09:22] LABS: BASO # 0.1 10^3/uL (0.0-0.2); EOS # 0.3 10^3/uL (0.0-0.5); EOS % 4.5 % (0.0-3.0); HEMATOCRIT 41.2 % (42.0-52.0); HEMOGLOBIN 13.8 g/dl (13.5-17.5); LYMPH # 1.2 10^3/uL (1.5-5.0); LYMPH % 19.7 % (24.0-44.0); MEAN CORPUSCULAR HEMOGLOBIN 31.6 pg (27.0-33.0); MEAN CORPUSCULAR HGB CONC 33.5 g/dl (32.0-36.5); MEAN CORPUSCULAR VOLUME 94.3 fl (80.0-96.0); MONO # 0.5 10^3/uL (0.0-0.8); NEUTROPHILS % 66.6 % (36.0-66.0); PLATELET COUNT, AUTOMATED 220 10^3/uL (150-450); RED BLOOD COUNT 4.37 10^6/uL (4.30-6.10)
[2019-12-30] MEDS ORDERED: NICOTINE 21MG/24HR 1 EA TRANSDERMAL TD ONE (09:30)
[2019-12-30 10:00] LABS: CK-MB VALUE MASS 1.8 NG/ML (<3.6); CPK CREATINE PHOSPHOKINASE 151 U/L (39-308); MB/CK RELATIVE INDEX 1.19 (< OR =4); TROPONIN I < 0.02 NG/ML (< 0.10)
[2019-12-30 10:03] LABS: ALBUMIN 3.7 GM/DL (3.2-5.2); ALT/SGPT 25 U/L (12-78); BILIRUBIN,DIRECT 0.2 MG/DL (0.0-0.2); BILIRUBIN,TOTAL 0.7 MG/DL (0.2-1.0); BLOOD UREA NITROGEN 10 MG/DL (7-18); CALCIUM LEVEL 8.6 MG/DL (8.8-10.2); CARBON DIOXIDE LEVEL 27 MEQ/L (21-32); CHLORIDE LEVEL 107 MEQ/L (98-107); CREATININE FOR GFR 0.86 MG/DL (0.70-1.30); FREE T4 0.95 NG/DL (0.76-1.46); GLOMERULAR FILTRATION RATE > 60.0 (>49); GLUCOSE, FASTING 129 MG/DL (70-100); LIPASE 125 U/L (73-393); SODIUM LEVEL 139 MEQ/L (136-145); THYROID STIMULATING HORMONE 0.652 uIU/ML (0.358-3.740); TOTAL PROTEIN 6.9 GM/DL (6.4-8.2)
[2019-12-30] MEDS ORDERED: ZOFR4TAB16 PO (11:01)
[2019-12-30 11:16] VITALS: BP 120/73
--- NOTE | 2019-12-30 13:24 | REP ---
REASON: Persistent pain after trauma 3 months ago. There is soft tissue swelling over the olecranon process, most probably representing an effusion within the olecranon bursa. There is no elbow joint effusion. There is no fracture. IMPRESSION: Probable olecranon bursitis. Unreviewed
--- NOTE | 2019-12-30 13:25 | REP ---
REASON: Dyspnea. COMPARISON: Multiple, the latest 07/18/2018. TWO-VIEW CHEST: FINDINGS: The superior mediastinal structures are midline. The cardiac silhouette is unremarkable in size, shape, and position. The diaphragmatic surfaces of the lungs are regular, and the costophrenic angles are clear. The pulmonary miranda are clear. The imaged osseous structures are intact. IMPRESSION: There is no acute cardiopulmonary disease. Unreviewed
--- NOTE | 2019-12-30 17:23 | ECGEPIP ---
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
== END 2019-12-30 11:22 | disposition home or self-care (01) ==
LOC: M ED 08:14
DX: R63.4 Abnormal weight loss (principal); R63.0 Anorexia; M70.21 Olecranon bursitis, right elbow; I49.3 Ventricular premature depolarization; I45.10 Unspecified right bundle-branch block; R06.02 Shortness of breath; J44.9 Chronic obstructive pulmonary disease, unspecified; M54.9 Dorsalgia, unspecified; R51 Headache; F41.9 Anxiety disorder, unspecified; F32.9 Major depressive disorder, single episode, unspecified; Z88.5 Allergy status to narcotic agent; Z88.8 Allergy status to other drugs, medicaments and biological substances; Z79.899 Other long term (current) drug therapy

== ENCOUNTER → 2020-01-31 | Outpatient (REF) | payer MEDICARE, MEDICAID ==
[~2020-01-31] MED LIST changes: +HYDR-3713 PO; +PROM25TA12 PO; +ZOFR4TAB16 PO
[2020-01-31 13:24] LABS: BASO # 0.1 10^3/uL (0.0-0.2); BASO % 0.9 % (0.0-1.0); EOS # 0.1 10^3/uL (0.0-0.5); EOS % 1.9 % (0.0-3.0); HEMATOCRIT 45.6 % (42.0-52.0); HEMOGLOBIN 14.8 g/dl (13.5-17.5); LYMPH # 1.6 10^3/uL (1.5-5.0); LYMPH % 23.3 % (24.0-44.0); MEAN CORPUSCULAR HEMOGLOBIN 31.6 pg (27.0-33.0); MEAN CORPUSCULAR HGB CONC 32.5 g/dl (32.0-36.5); MEAN CORPUSCULAR VOLUME 97.4 fl (80.0-96.0); MONO # 0.5 10^3/uL (0.0-0.8); MONO % 7.3 % (0.0-5.0); NEUTROPHILS # 4.5 10^3/uL (1.5-8.5); PLATELET COUNT, AUTOMATED 265 10^3/uL (150-450); RED BLOOD COUNT 4.68 10^6/uL (4.30-6.10); WHITE BLOOD COUNT 6.8 10^3/uL (4.0-10.0)
[2020-01-31 13:41] LABS: HEMOGLOBIN A1c 4.8 %
[2020-01-31 13:58] LABS: ALBUMIN 4.5 GM/DL (3.2-5.2); ALT/SGPT 29 U/L (12-78); BILIRUBIN,TOTAL 0.6 MG/DL (0.2-1.0); BLOOD UREA NITROGEN 15 MG/DL (7-18); CALCIUM LEVEL 9.4 MG/DL (8.8-10.2); CARBON DIOXIDE LEVEL 31 MEQ/L (21-32); CHLORIDE LEVEL 103 MEQ/L (98-107); CREATININE FOR GFR 0.91 MG/DL (0.70-1.30); GLOMERULAR FILTRATION RATE > 60.0 (>49); GLUCOSE, FASTING 112 MG/DL (70-100); POTASSIUM SERUM 4.3 MEQ/L (3.5-5.1); SODIUM LEVEL 137 MEQ/L (136-145); TOTAL PROTEIN 7.5 GM/DL (6.4-8.2)
[2020-01-31 14:08] LABS: TOTAL 25(OH) VITAMIN D 30.9 NG/ML (30.0-100.0)
== END ==
LOC: M LAB REF 12:37
PROVIDERS: ATTEND Physician Assistant
DX: R53.83 Other fatigue (principal); R63.4 Abnormal weight loss

== ENCOUNTER 2020-02-03 09:23 | Emergency (ER) | payer MEDICARE, MEDICAID ==
[~2020-02-03] VITALS: Ht 182.9 cm; Wt 68.5 kg
[~2020-02-03 09:23] MED LIST changes: -PROM25TA12 PO
[2020-02-03] MEDS ORDERED: ONDANSETRON 4MG/2ML VIAL (J2405 PER 1MG) IV ONE (10:00)
[2020-02-03] MEDS ORDERED: NS 1,000 ML IV ONE (10:00)
[2020-02-03 10:23] LABS: BASO # 0.1 10^3/uL (0.0-0.2); BASO % 0.7 % (0.0-1.0); EOS # 0.1 10^3/uL (0.0-0.5); EOS % 0.5 % (0.0-3.0); HEMATOCRIT 43.5 % (42.0-52.0); HEMOGLOBIN 14.2 g/dl (13.5-17.5); LYMPH # 1.4 10^3/uL (1.5-5.0); LYMPH % 13.7 % (24.0-44.0); MEAN CORPUSCULAR HEMOGLOBIN 31.2 pg (27.0-33.0); MEAN CORPUSCULAR HGB CONC 32.6 g/dl (32.0-36.5); MEAN CORPUSCULAR VOLUME 95.6 fl (80.0-96.0); MONO # 0.5 10^3/uL (0.0-0.8); MONO % 5.2 % (0.0-5.0); NEUTROPHILS # 7.9 10^3/uL (1.5-8.5); NEUTROPHILS % 79.5 % (36.0-66.0); PLATELET COUNT, AUTOMATED 258 10^3/uL (150-450); RED BLOOD COUNT 4.55 10^6/uL (4.30-6.10); WHITE BLOOD COUNT 9.9 10^3/uL (4.0-10.0)
[2020-02-03] MEDS ORDERED: ISOVUE-370 76% 100ML VIAL (Q9967) As Ordered ONE (10:23)
[2020-02-03] MEDS ORDERED: KETOROLAC 30 MG/ML 1ML VIAL (J1885 PER 15MG) IV ONE (10:45)
[2020-02-03 10:54] LABS: ALBUMIN 4.1 GM/DL (3.2-5.2); BILIRUBIN,DIRECT 0.2 MG/DL (0.0-0.2); BILIRUBIN,TOTAL 1.2 MG/DL (0.2-1.0); TOTAL PROTEIN 7.1 GM/DL (6.4-8.2)
--- NOTE | 2020-02-03 11:32 | REP ---
CT abdomen and pelvis with IV but without oral contrast: History: Prolonged nausea. Left lower quadrant pain. No comparison CT study. CT contrast dose: 100 mL of intravenous Isovue 370. 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 The lung bases are clear on axial CT images. There are scattered small sub centimeter cysts in the liver. No focal liver mass lesion is seen. No splenic lesion is observed. The adrenal glands are normal. The main pancreatic duct is slightly dilated, 4 mm. No pancreatic mass or calculus is seen. The common bile duct is not dilated. No pancreatic cyst is observed. There is a tiny accessory splenule. No retroperitoneal mass or adenopathy is seen. The kidneys enhance symmetrically and are morphologically intact. No hydronephrosis. Small and large bowel loops are normal in the upper abdomen. Normal caliber aorta. Pelvic CT images demonstrate diverticulosis in the sigmoid colon in the left lower quadrant. No inflammatory changes are seen to suggest diverticulitis however. There is diffuse thickening of the urinary bladder wall and there is a right posterior bladder diverticulum. The prostate is quite enlarged and contains calcification and heterogeneous density. It elevates the bladder base. No abdominal wall defect is seen. Normal appendix is seen in the right lower quadrant. There is no evidence of free air or abnormal fluid collection. Bone window settings show no bony destructive lesion. Impression: Mildly dilated main pancreatic duct with no evidence of mass or calculus or cyst. Normal appendix. Diverticulosis in the sigmoid colon without CT evidence of diverticulitis. Prostate enlargement and diffuse thickening of the bladder wall consistent with prostatism. There is a small right-sided bladder diverticulum. Electronically Signed by Moise Gay MD 02/03/2020 12:07 P
[2020-02-03] MEDS ORDERED: PROM25TA12 PO (12:05)
[2020-02-03 12:16] VITALS: BP 111/58
--- NOTE | 2020-02-03 13:19 | ED PDOC ---
Post-Departure Follow-Up denise reyes and xochitl posey faxed formal report o ct abd/p for fu Red Blanchard MD Feb 03, 2020 13:19
== END 2020-02-03 12:35 | disposition home or self-care (01) ==
LOC: M ED 09:23
DX: R63.0 Anorexia (principal); N40.0 Benign prostatic hyperplasia without lower urinary tract symptoms; R63.4 Abnormal weight loss; K86.89 Other specified diseases of pancreas; K57.30 Diverticulosis of large intestine without perforation or abscess without bleeding; N32.3 Diverticulum of bladder; I49.9 Cardiac arrhythmia, unspecified; M54.9 Dorsalgia, unspecified; F17.210 Nicotine dependence, cigarettes, uncomplicated; Z88.8 Allergy status to other drugs, medicaments and biological substances; Z88.5 Allergy status to narcotic agent; Z79.899 Other long term (current) drug therapy
CPT/HCPCS: 74177; 80047; 80076; 81001; 83690; 85025; 96361; 96374; 99284; J2405; Q9967

== ENCOUNTER → 2020-02-08 | Outpatient (REF) | payer MEDICARE, MEDICAID ==
[~2020-02-08] MED LIST changes: +PROM25TA12 PO
[2020-02-08 18:00] LABS: APPEARANCE, URINE CLEAR (CLEAR); BACTERIA, URINE AUTO NEGATIVE (NEGATIVE); BILIRUBIN, URINE AUTO NEGATIVE (NEGATIVE); BLOOD, URINE BLOOD NEGATIVE (NEGATIVE); COLOR, URINE STRAW (YELLOW); GLUCOSE, URINE (UA) AUTO NEGATIVE (NEGATIVE); KETONE, URINE AUTO NEGATIVE (NEGATIVE); LEUKOCYTE ESTERASE, URINE AUTO NEGATIVE (NEGATIVE); NITRITE, URINE AUTO NEGATIVE (NEGATIVE); PROTEIN, URINE AUTO NEGATIVE (NEGATIVE); RBC, URINE AUTO 0 /HPF (0-3); SPECIFIC GRAVITY URINE AUTO 1.008 (1.002-1.035); SQUAMOUS EPITHELIAL CELL UR AU 0 /HPF (0-6); UROBILINOGEN, URINE AUTO 0.2 mg/dL (0.0-2.0); WBC, URINE AUTO 0 /HPF (0-3)
== END ==
LOC: M SMT 16:36
PROVIDERS: ATTEND Nurse Practitioner Women's Health
DX: N40.0 Benign prostatic hyperplasia without lower urinary tract symptoms (principal)
CPT/HCPCS: 51798; 81001; 87086; G0463

== ENCOUNTER 2020-02-19 12:16 | Emergency (ER) | payer MEDICARE, MEDICAID ==
[~2020-02-19] VITALS: Ht 182.9 cm; Wt 63.2 kg
[2020-02-19] MEDS ORDERED: TAMS1CAP17 (12:24)
[2020-02-19] MEDS ORDERED: NS 1,000 ML IV ONE (13:00)
[2020-02-19 13:05] LABS: BASO # 0.1 10^3/uL (0.0-0.2); BASO % 0.7 % (0.0-1.0); EOS # 0.1 10^3/uL (0.0-0.5); EOS % 1.1 % (0.0-3.0); HEMATOCRIT 42.5 % (42.0-52.0); HEMOGLOBIN 14.1 g/dl (13.5-17.5); LYMPH # 1.4 10^3/uL (1.5-5.0); LYMPH % 16.1 % (24.0-44.0); MEAN CORPUSCULAR HEMOGLOBIN 31.5 pg (27.0-33.0); MEAN CORPUSCULAR HGB CONC 33.2 g/dl (32.0-36.5); MEAN CORPUSCULAR VOLUME 94.9 fl (80.0-96.0); MONO # 0.6 10^3/uL (0.0-0.8); MONO % 6.6 % (0.0-5.0); NEUTROPHILS # 6.3 10^3/uL (1.5-8.5); NEUTROPHILS % 75.1 % (36.0-66.0); PLATELET COUNT, AUTOMATED 240 10^3/uL (150-450); RED BLOOD COUNT 4.48 10^6/uL (4.30-6.10); WHITE BLOOD COUNT 8.4 10^3/uL (4.0-10.0)
--- NOTE | 2020-02-19 13:09 | REP ---
CHEST: REASON: Chest pain. COMPARISON: 12/30/2019 The technique utilized in obtaining the radiograph has magnified the cardiac silhouette and accentuated the interstitial markings. FINDINGS: The superior mediastinal structures are midline. The cardiac silhouette is unremarkable in size, shape, and position. The diaphragmatic surfaces of the lungs are regular, and the costophrenic angles are clear. The pulmonary miranda are clear. The imaged osseous structures are intact. IMPRESSION: There is no acute cardiopulmonary disease. No significant change. Electronically Signed by Evens Ortega DO 02/19/2020 01:34 P
[2020-02-19 14:42] LABS: ALBUMIN 3.6 GM/DL (3.2-5.2); ALT/SGPT 29 U/L (12-78); BILIRUBIN,DIRECT 0.2 MG/DL (0.0-0.2); BILIRUBIN,TOTAL 0.8 MG/DL (0.2-1.0); BLOOD UREA NITROGEN 11 MG/DL (7-18); CALCIUM LEVEL 9.3 MG/DL (8.8-10.2); CARBON DIOXIDE LEVEL 27 MEQ/L (21-32); CHLORIDE LEVEL 108 MEQ/L (98-107); CK-MB VALUE MASS < 1.0 NG/ML (<3.6); CPK CREATINE PHOSPHOKINASE 76 U/L (39-308); CREATININE FOR GFR 0.69 MG/DL (0.70-1.30); GLOMERULAR FILTRATION RATE > 60.0 (>49); GLUCOSE, FASTING 87 MG/DL (70-100); LIPASE 76 U/L (73-393); MB/CK RELATIVE INDEX 1.32 (< OR =4); NT-PRO BNP 47 PG/ML (<125); POTASSIUM SERUM 4.2 MEQ/L (3.5-5.1); SODIUM LEVEL 140 MEQ/L (136-145); THYROID STIMULATING HORMONE 0.287 uIU/ML (0.358-3.740); TOTAL PROTEIN 6.5 GM/DL (6.4-8.2); TROPONIN I < 0.02 NG/ML (< 0.10)
[2020-02-19 15:00] VITALS: BP 124/66
--- NOTE | 2020-02-19 18:40 | ECGEPIP ---
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
== END 2020-02-19 15:48 | disposition home or self-care (01) ==
LOC: M ED 12:16
DX: R53.1 Weakness (principal); R63.4 Abnormal weight loss; F17.210 Nicotine dependence, cigarettes, uncomplicated; Z88.5 Allergy status to narcotic agent; Z88.8 Allergy status to other drugs, medicaments and biological substances; Z79.899 Other long term (current) drug therapy; Z79.51 Long term (current) use of inhaled steroids

== ENCOUNTER → 2020-03-29 | Outpatient (REF) | payer MEDICARE, MEDICAID ==
[~2020-03-29] MED LIST changes: +TAMS1CAP17
[2020-03-29 12:16] LABS: BASO # 0.1 10^3/uL (0.0-0.2); BASO % 0.8 % (0.0-1.0); EOS # 0.1 10^3/uL (0.0-0.5); EOS % 1.9 % (0.0-3.0); HEMATOCRIT 44.4 % (42.0-52.0); HEMOGLOBIN 14.5 g/dl (13.5-17.5); LYMPH # 1.7 10^3/uL (1.5-5.0); LYMPH % 23.3 % (24.0-44.0); MEAN CORPUSCULAR HGB CONC 32.7 g/dl (32.0-36.5); MEAN CORPUSCULAR VOLUME 94.9 fl (80.0-96.0); MONO # 0.6 10^3/uL (0.0-0.8); MONO % 7.7 % (0.0-5.0); NEUTROPHILS # 4.7 10^3/uL (1.5-8.5); NEUTROPHILS % 65.6 % (36.0-66.0); PLATELET COUNT, AUTOMATED 261 10^3/uL (150-450); RED BLOOD COUNT 4.68 10^6/uL (4.30-6.10); WHITE BLOOD COUNT 7.2 10^3/uL (4.0-10.0)
[2020-03-29 12:36] LABS: ALBUMIN 4.5 GM/DL (3.2-5.2); ALT/SGPT 26 U/L (12-78); BILIRUBIN,TOTAL 0.5 MG/DL (0.2-1.0); BLOOD UREA NITROGEN 11 MG/DL (7-18); CALCIUM LEVEL 9.4 MG/DL (8.8-10.2); CARBON DIOXIDE LEVEL 27 MEQ/L (21-32); CHLORIDE LEVEL 106 MEQ/L (98-107); GLOMERULAR FILTRATION RATE > 60.0 (>49); GLUCOSE, FASTING 97 MG/DL (70-100); POTASSIUM SERUM 4.4 MEQ/L (3.5-5.1); SODIUM LEVEL 138 MEQ/L (136-145); THYROID STIMULATING HORMONE 0.845 uIU/ML (0.358-3.740); TOTAL PROTEIN 7.7 GM/DL (6.4-8.2)
== END ==
LOC: M LAB REF 11:56
PROVIDERS: ATTEND Family Medicine Addiction Medicine
DX: R53.83 Other fatigue (principal)

== ENCOUNTER → 2021-01-28 | Outpatient (REF) | payer MEDICARE, MEDICAID ==
[~2021-01-28] MED LIST changes: -DOK100TA PO; +DOK100TA2 PO; +GABA-282 PO; -GABA-843 PO; +MONT10TA10 PO; -MONT10TA4 PO; +QUET50TA3 PO; -QUET5TAB PO
[2021-01-28 12:24] LABS: BASO # 0.1 10^3/uL (0.0-0.2); BASO % 0.9 % (0.0-1.0); EOS # 0.3 10^3/uL (0.0-0.5); EOS % 3.3 % (0.0-3.0); HEMATOCRIT 46.5 % (42.0-52.0); HEMOGLOBIN 15.2 g/dl (13.5-17.5); LYMPH # 2.5 10^3/uL (1.5-5.0); MEAN CORPUSCULAR HEMOGLOBIN 30.6 pg (27.0-33.0); MEAN CORPUSCULAR HGB CONC 32.7 g/dl (32.0-36.5); MEAN CORPUSCULAR VOLUME 93.6 fl (80.0-96.0); MONO # 0.7 10^3/uL (0.0-0.8); MONO % 7.6 % (2.0-8.0); NEUTROPHILS # 5.4 10^3/uL (1.5-8.5); NEUTROPHILS % 59.5 % (36.0-66.0); PLATELET COUNT, AUTOMATED 264 10^3/uL (150-450); RED BLOOD COUNT 4.97 10^6/uL (4.30-6.10)
[2021-01-28 13:09] LABS: ALBUMIN 4.7 GM/DL (3.2-5.2); ALT/SGPT 25 U/L (12-78); BILIRUBIN,TOTAL 0.7 MG/DL (0.2-1.0); BLOOD UREA NITROGEN 20 MG/DL (7-18); CALCIUM LEVEL 9.9 MG/DL (8.8-10.2); CARBON DIOXIDE LEVEL 28 MEQ/L (21-32); CHLORIDE LEVEL 103 MEQ/L (98-107); CREATININE FOR GFR 1.02 MG/DL (0.70-1.30); GLOMERULAR FILTRATION RATE > 60.0 (>49); GLUCOSE, FASTING 90 MG/DL (70-100); POTASSIUM SERUM 4.1 MEQ/L (3.5-5.1); SODIUM LEVEL 137 MEQ/L (136-145); TOTAL PROTEIN 7.8 GM/DL (6.4-8.2)
[2021-01-29 15:09] LABS: HEPATITIS C QUANTITATION HCV Not Detected IU/mL (.)
== END ==
LOC: M LAB REF 11:39
PROVIDERS: ATTEND Pediatrics
DX: B18.2 Chronic viral hepatitis C (principal); Z51.81 Encounter for therapeutic drug level monitoring; N40.0 Benign prostatic hyperplasia without lower urinary tract symptoms

== ENCOUNTER 2022-01-13 09:45 | Inpatient (IN) | payer MEDICARE, MEDICAID ==
[~2022-01-13] VITALS: Ht 180.3 cm; Wt 71.8 kg
[~2022-01-13 09:45] MED LIST changes: +GABA-283 PO; -GABA-845 PO; -MONT10TA10 PO; +MONT10TA97 PO; -QUET50TA3 PO; +QUET50TA4 PO; -TAMS1CAP17; +TAMS1CAP17 PO
[2022-01-13 10:11] LABS: HEMATOCRIT 42.6 % (42.0-52.0); HEMOGLOBIN 14.1 g/dl (13.5-17.5); MEAN CORPUSCULAR HEMOGLOBIN 30.7 pg (27.0-33.0); MEAN CORPUSCULAR HGB CONC 33.1 g/dl (32.0-36.5); MEAN CORPUSCULAR VOLUME 92.6 fl (80.0-96.0); PLATELET COUNT, AUTOMATED 255 10^3/uL (150-450); WHITE BLOOD COUNT 5.6 10^3/uL (4.0-10.0)
[2022-01-13 10:57] LABS: ACETAMINOPHEN LEVEL < 2.0 UG/ML (10.0-30.0); ALBUMIN 4.1 GM/DL (3.2-5.2); ALT/SGPT 25 U/L (12-78); BILIRUBIN,DIRECT 0.1 MG/DL (0.0-0.2); BILIRUBIN,TOTAL 0.5 MG/DL (0.2-1.0); BLOOD UREA NITROGEN 21 MG/DL (7-18); CARBON DIOXIDE LEVEL 27 MEQ/L (21-32); CHLORIDE LEVEL 110 MEQ/L (98-107); CREATININE FOR GFR 0.93 MG/DL (0.70-1.30); ETHYL ALCOHOL (ETHANOL) < 0.003 % (0.000-0.010); GLOMERULAR FILTRATION RATE > 60.0 (>49); GLUCOSE, FASTING 122 MG/DL (70-100); SALICYLATE LEVEL 2.4 MG/DL (5.0-30.0); SODIUM LEVEL 140 MEQ/L (136-145); THYROID STIMULATING HORMONE 0.843 uIU/ML (0.358-3.740)
[2022-01-13 12:26] LABS: AMPHETAMINES LEVEL URINE NEGATIVE (NEGATIVE); BARBITURATES URINE NEGATIVE (NEGATIVE); BENZODIAZEPINES URINE NEGATIVE (NEGATIVE); CANNABINOIDS URINE NEGATIVE (NEGATIVE); COCAINE METABOLITE URINE NEGATIVE (NEGATIVE); METHADONE URINE NEGATIVE (NEGATIVE); OPIATES URINE NEGATIVE (NEGATIVE); PHENCYCLIDINE URINE NEGATIVE (NEGATIVE)
[2022-01-13 12:46] LABS: RSV AMPLIFICATION NEGATIVE (NEGATIVE)
[2022-01-13] MEDS ORDERED: GABA-282 PO (14:03)
[2022-01-13] MEDS ORDERED: QUET150T2 PO (14:03)
[2022-01-13] MEDS ORDERED: FLUTISP NARES (14:03)
[2022-01-13] MEDS ORDERED: BEVE1AER INH (14:03)
[2022-01-13] MEDS ORDERED: MED REC COMMENT (14:05)
[2022-01-13] MEDS ORDERED: HOME MED LIST COMPLETE! XX SCH (14:10)
[2022-01-13] MEDS ORDERED: NICOTINE 21MG/24HR 1 EA TRANSDERMAL TD ONE (14:25)
[2022-01-13] MEDS ORDERED: GABAPENTIN 300 MG CAP PO ONE (14:25)
[2022-01-13] MEDS ORDERED: TAMSULOSIN 0.4 MG CAP PO ONE (14:25)
[2022-01-13 14:40] LABS: APPEARANCE, URINE CLEAR (CLEAR); BACTERIA, URINE AUTO 1+ (NEGATIVE); BILIRUBIN, URINE AUTO NEGATIVE (NEGATIVE); BLOOD, URINE BLOOD NEGATIVE (NEGATIVE); COLOR, URINE YELLOW (YELLOW); GLUCOSE, URINE (UA) AUTO NEGATIVE (NEGATIVE); KETONE, URINE AUTO NEGATIVE (NEGATIVE); LEUKOCYTE ESTERASE, URINE AUTO NEGATIVE (NEGATIVE); MUCUS, URINE SMALL (NEGATIVE); NITRITE, URINE AUTO NEGATIVE (NEGATIVE); PROTEIN, URINE AUTO NEGATIVE (NEGATIVE); RBC, URINE AUTO 0 /HPF (0-3); SPECIFIC GRAVITY URINE AUTO 1.025 (1.002-1.035); SQUAMOUS EPITHELIAL CELL UR AU 1 /HPF (0-6); UROBILINOGEN, URINE AUTO 0.2 mg/dL (0.0-2.0); WBC, URINE AUTO 1 /HPF (0-3)
[2022-01-13] MEDS ORDERED: ALBUTEROL 90 MCG/ACT 8GM HFA INHALER INH PRN (17:55)
[2022-01-13] MEDS ORDERED: MAALOX 30 ML SUSP *UDC PO PRN (17:55)
[2022-01-13] MEDS ORDERED: traZODone 50 MG TAB PO PRN (17:55)
[2022-01-13] MEDS ORDERED: OLANZapine ORAL DISINTEGRATING TAB 5MG PO PRN (17:55)
[2022-01-13] MEDS ORDERED: MOM 30ML SUSPENSION UDC PO PRN (17:55)
[2022-01-13] MEDS ORDERED: IBUPROFEN 800 MG TAB PO ONE (19:55)
[2022-01-13 20:27] VITALS: BP 142/73
[2022-01-13] MEDS: QUEtiapine FUMERATE XR 50MG TABER PO SCH (21:17)
[2022-01-13] MEDS: GABAPENTIN 300 MG CAP PO SCH (21:17)
[2022-01-13] MEDS: TAMSULOSIN 0.4 MG CAP PO SCH (21:17)
[2022-01-14 06:31] VITALS: BP 98/58
[2022-01-14] MEDS: SALMETEROL DISKUS 50MCG INHALER (SEREVENT) INH SCH ×2 (08:03→20:33)
[2022-01-14] MEDS: FLUTICASONE PROP 0.05% NASAL SPRAY 16 GM (FLONASE) NARES SCH (08:03)
[2022-01-14] MEDS: GABAPENTIN 300 MG CAP PO SCH ×3 (08:03→20:36)
[2022-01-14] MEDS: TIOTROPIUM INHALER/CAPSULE (SPIRIVA) INH SCH (08:03)
[2022-01-14] MEDS: IBUPROFEN 600MG TAB PO SCH ×3 (08:03→20:35)
[2022-01-14] MEDS: TAMSULOSIN 0.4 MG CAP PO SCH ×2 (08:03→20:36)
[2022-01-14] MEDS: NICOTINE 14 MG/24 HR TRANSDERMAL TD SCH (11:37)
[2022-01-14 16:37] VITALS: BP 118/71
[2022-01-14] MEDS: QUEtiapine FUMERATE XR 50MG TABER PO SCH (20:36)
[2022-01-15 06:00] VITALS: BP 96/58
[2022-01-15] MEDS: SALMETEROL DISKUS 50MCG INHALER (SEREVENT) INH SCH ×2 (08:07→20:29)
[2022-01-15] MEDS: FLUTICASONE PROP 0.05% NASAL SPRAY 16 GM (FLONASE) NARES SCH (08:07)
[2022-01-15] MEDS: NICOTINE 14 MG/24 HR TRANSDERMAL TD SCH (08:08)
[2022-01-15] MEDS: IBUPROFEN 600MG TAB PO SCH ×3 (08:08→20:29)
[2022-01-15] MEDS: GABAPENTIN 300 MG CAP PO SCH ×3 (08:08→20:29)
[2022-01-15] MEDS: TAMSULOSIN 0.4 MG CAP PO SCH ×2 (08:09→20:29)
[2022-01-15] MEDS: TIOTROPIUM INHALER/CAPSULE (SPIRIVA) INH SCH (08:09)
[2022-01-15] MEDS: ACETAMINOPHEN TAB 650MG DOSE (2X325MG) PO PRN (13:51)
[2022-01-15 18:24] VITALS: BP 118/68
[2022-01-15] MEDS: QUEtiapine FUMERATE XR 50MG TABER PO SCH (20:28)
[2022-01-16 06:00] VITALS: BP 99/63
[2022-01-16] MEDS: TAMSULOSIN 0.4 MG CAP PO SCH ×2 (08:13→20:03)
[2022-01-16] MEDS: FLUTICASONE PROP 0.05% NASAL SPRAY 16 GM (FLONASE) NARES SCH (08:13)
[2022-01-16] MEDS: NICOTINE 14 MG/24 HR TRANSDERMAL TD SCH (08:13)
[2022-01-16] MEDS: SALMETEROL DISKUS 50MCG INHALER (SEREVENT) INH SCH ×2 (08:13→20:01)
[2022-01-16] MEDS: GABAPENTIN 300 MG CAP PO SCH ×3 (08:13→20:03)
[2022-01-16] MEDS: TIOTROPIUM INHALER/CAPSULE (SPIRIVA) INH SCH (08:13)
[2022-01-16] MEDS: IBUPROFEN 600MG TAB PO SCH ×3 (08:14→20:03)
[2022-01-16] MEDS: ACETAMINOPHEN TAB 650MG DOSE (2X325MG) PO PRN (12:41)
[2022-01-16 16:21] VITALS: BP 116/70
[2022-01-16] MEDS: ARIPiprazole 10 MG TAB PO SCH (20:02)
[2022-01-16] MEDS: QUEtiapine FUMERATE XR 50MG TABER PO SCH (20:03)
[2022-01-17 06:20] VITALS: BP 104/58
[2022-01-17] MEDS: GABAPENTIN 300 MG CAP PO SCH ×3 (07:55→20:00)
[2022-01-17] MEDS: FLUTICASONE PROP 0.05% NASAL SPRAY 16 GM (FLONASE) NARES SCH (07:55)
[2022-01-17] MEDS: TIOTROPIUM INHALER/CAPSULE (SPIRIVA) INH SCH (07:55)
[2022-01-17] MEDS: SALMETEROL DISKUS 50MCG INHALER (SEREVENT) INH SCH ×2 (07:55→20:01)
[2022-01-17] MEDS: IBUPROFEN 600MG TAB PO SCH ×3 (07:56→20:01)
[2022-01-17] MEDS: NICOTINE 14 MG/24 HR TRANSDERMAL TD SCH (07:57)
[2022-01-17] MEDS: TAMSULOSIN 0.4 MG CAP PO SCH ×2 (07:57→20:00)
[2022-01-17] MEDS: LIDOCAINE 5% (LIDODERM) PATCH TD SCH ×2 (09:00→11:53)
[2022-01-17] MEDS: ACETAMINOPHEN TAB 650MG DOSE (2X325MG) PO PRN (12:37)
[2022-01-17 15:46] LABS: ALBUMIN 3.5 GM/DL (3.2-5.2); ALT/SGPT 24 U/L (12-78); BILIRUBIN,TOTAL 0.3 MG/DL (0.2-1.0); BLOOD UREA NITROGEN 18 MG/DL (7-18); CALCIUM LEVEL 8.5 MG/DL (8.8-10.2); CARBON DIOXIDE LEVEL 31 MEQ/L (21-32); CHLORIDE LEVEL 112 MEQ/L (98-107); CREATININE FOR GFR 0.79 MG/DL (0.70-1.30); GLOMERULAR FILTRATION RATE > 60.0 (>49); GLUCOSE, FASTING 98 MG/DL (70-100); POTASSIUM SERUM 4.4 MEQ/L (3.5-5.1); SODIUM LEVEL 145 MEQ/L (136-145); TOTAL PROTEIN 6.3 GM/DL (6.4-8.2)
[2022-01-17] MEDS ORDERED: ACETAMINOPHEN TAB 650MG DOSE (2X325MG) PO PRN (15:55)
[2022-01-17] MEDS ORDERED: ACETAMINOPHEN 500 MG TAB PO PRN (15:55)
[2022-01-17 16:12] VITALS: BP 119/64
[2022-01-17] MEDS: QUEtiapine FUMARATE 50MG TAB PO SCH (20:00)
[2022-01-17] MEDS: ARIPiprazole 10 MG TAB PO SCH (20:00)
[2022-01-17] MEDS: **NOTE PATIENT COMMENT** MISC XX SCH (20:04)
[2022-01-18 06:28] VITALS: BP 102/59
[2022-01-18] MEDS: LIDOCAINE 5% (LIDODERM) PATCH TD SCH (08:11)
[2022-01-18] MEDS: FLUTICASONE PROP 0.05% NASAL SPRAY 16 GM (FLONASE) NARES SCH (08:13)
[2022-01-18] MEDS: TIOTROPIUM INHALER/CAPSULE (SPIRIVA) INH SCH (08:14)
[2022-01-18] MEDS: NICOTINE 14 MG/24 HR TRANSDERMAL TD SCH (08:14)
[2022-01-18] MEDS: SALMETEROL DISKUS 50MCG INHALER (SEREVENT) INH SCH ×2 (08:14→20:02)
[2022-01-18] MEDS: TAMSULOSIN 0.4 MG CAP PO SCH ×2 (08:15→20:03)
[2022-01-18] MEDS: GABAPENTIN 300 MG CAP PO SCH ×3 (08:15→20:02)
[2022-01-18] MEDS: IBUPROFEN 600MG TAB PO SCH ×3 (08:16→20:03)
[2022-01-18 16:05] VITALS: BP 100/61
[2022-01-18] MEDS: QUEtiapine FUMARATE 50MG TAB PO SCH (20:02)
[2022-01-18] MEDS: ARIPiprazole 10 MG TAB PO SCH (20:02)
[2022-01-18] MEDS: **NOTE PATIENT COMMENT** MISC XX SCH (20:04)
[2022-01-19 06:43] VITALS: BP 132/59
[2022-01-19] MEDS: SALMETEROL DISKUS 50MCG INHALER (SEREVENT) INH SCH ×2 (07:54→20:18)
[2022-01-19] MEDS: TIOTROPIUM INHALER/CAPSULE (SPIRIVA) INH SCH (07:54)
[2022-01-19] MEDS: NICOTINE 14 MG/24 HR TRANSDERMAL TD SCH (08:05)
[2022-01-19] MEDS: GABAPENTIN 300 MG CAP PO SCH ×3 (08:05→20:18)
[2022-01-19] MEDS: TAMSULOSIN 0.4 MG CAP PO SCH ×2 (08:05→20:18)
[2022-01-19] MEDS: FLUTICASONE PROP 0.05% NASAL SPRAY 16 GM (FLONASE) NARES SCH (08:05)
[2022-01-19] MEDS: IBUPROFEN 600MG TAB PO SCH ×3 (08:06→20:19)
[2022-01-19] MEDS: LIDOCAINE 5% (LIDODERM) PATCH TD SCH (08:06)
[2022-01-19 17:41] VITALS: BP 134/77
[2022-01-19] MEDS: ARIPiprazole 10 MG TAB PO SCH (20:18)
[2022-01-19] MEDS: QUEtiapine FUMARATE 50MG TAB PO SCH (20:19)
[2022-01-19] MEDS: **NOTE PATIENT COMMENT** MISC XX SCH (20:20)
[2022-01-20 06:00] VITALS: BP 112/61
[2022-01-20] MEDS: SALMETEROL DISKUS 50MCG INHALER (SEREVENT) INH SCH (08:18)
[2022-01-20] MEDS: TAMSULOSIN 0.4 MG CAP PO SCH (08:18)
[2022-01-20] MEDS: FLUTICASONE PROP 0.05% NASAL SPRAY 16 GM (FLONASE) NARES SCH (08:18)
[2022-01-20] MEDS: GABAPENTIN 300 MG CAP PO SCH (08:18)
[2022-01-20] MEDS: TIOTROPIUM INHALER/CAPSULE (SPIRIVA) INH SCH (08:18)
[2022-01-20] MEDS: IBUPROFEN 600MG TAB PO SCH (08:19)
[2022-01-20] MEDS: LIDOCAINE 5% (LIDODERM) PATCH TD SCH (08:22)
[2022-01-20] MEDS: NICOTINE 14 MG/24 HR TRANSDERMAL TD SCH (08:22)
[2022-01-20] MEDS ORDERED: QUET150T2 PO (10:23)
[2022-01-20] MEDS ORDERED: LIDO5TD TD (10:23)
[2022-01-20] MEDS ORDERED: NICO14PA TD (10:23)
[2022-01-20] MEDS ORDERED: ABIL10TA9 PO (10:23)
[2022-01-20] MEDS ORDERED: GABA-282 PO (10:23)
== END 2022-01-20 12:45 | disposition home or self-care (01) | DRG 885 ==
LOC: M ED 09:45 → CANBEDREQ 13:13 → M ED INP 17:52 → M PSY 20:11
PROVIDERS: ADMIT Student in an Organized Health Care Education/Training Program; ATTEND Student in an Organized Health Care Education/Training Program
DX: F31.60 Bipolar disorder, current episode mixed, unspecified (principal); N40.0 Benign prostatic hyperplasia without lower urinary tract symptoms; M48.00 Spinal stenosis, site unspecified; M54.12 Radiculopathy, cervical region; J44.9 Chronic obstructive pulmonary disease, unspecified; F17.210 Nicotine dependence, cigarettes, uncomplicated; I49.9 Cardiac arrhythmia, unspecified; Z79.899 Other long term (current) drug therapy; Z88.5 Allergy status to narcotic agent; Z88.8 Allergy status to other drugs, medicaments and biological substances

== ENCOUNTER 2022-04-16 12:27 | Emergency (ER) | payer MEDICARE, MEDICAID ==
[~2022-04-16] VITALS: Ht 180.3 cm; Wt 70.5 kg
[~2022-04-16 12:27] MED LIST changes: +ABIL10TA9 PO; +BEVE1AER INH; +FLUTISP NARES; +LIDO5TD TD; +MED REC COMMENT; +NICO14PA TD; +QUET150T2 PO
[2022-04-16] MEDS ORDERED: ISOVUE-370 76% 100ML VIAL As Ordered ONE (13:03)
[2022-04-16 13:23] LABS: HEMATOCRIT 37.7 % (42.0-52.0); HEMOGLOBIN 12.2 g/dl (13.5-17.5); MEAN CORPUSCULAR HEMOGLOBIN 30.6 pg (27.0-33.0); MEAN CORPUSCULAR HGB CONC 32.4 g/dl (32.0-36.5); MEAN CORPUSCULAR VOLUME 94.5 fl (80.0-96.0); PLATELET COUNT, AUTOMATED 185 10^3/uL (150-450); RED BLOOD COUNT 3.99 10^6/uL (4.30-6.10); WHITE BLOOD COUNT 13.6 10^3/uL (4.0-10.0)
[2022-04-16 13:48] LABS: ALBUMIN 4.5 GM/DL (3.2-5.2); BILIRUBIN,DIRECT 0.4 MG/DL (0.0-0.2); BILIRUBIN,TOTAL 1.8 MG/DL (0.2-1.0); ETHYL ALCOHOL (ETHANOL) 0.009 % (0.000-0.010); TOTAL PROTEIN 6.7 GM/DL (6.4-8.2)
[2022-04-16] MEDS ORDERED: NS 1,000 ML IV ONE (14:10)
[2022-04-16] MEDS ORDERED: ceFAZolin SOD 1 GM in D5W MINI-BAG PLUS 50 ML IV ONE (14:20)
[2022-04-16 14:37] LABS: RSV AMPLIFICATION NEGATIVE (NEGATIVE)
[2022-04-16 15:22] VITALS: BP 115/67
== END 2022-04-16 15:25 | disposition short-term general hospital (02) ==
LOC: M ED 12:27
DX: S00.83XA Contusion of other part of head, initial encounter (principal); S42.002A Fracture of unspecified part of left clavicle, initial encounter for closed fracture; S22.42XA Multiple fractures of ribs, left side, initial encounter for closed fracture; W16.42XA Fall into unspecified water causing other injury, initial encounter; Y92.89 Other specified places as the place of occurrence of the external cause; J44.9 Chronic obstructive pulmonary disease, unspecified; F15.10 Other stimulant abuse, uncomplicated; B19.10 Unspecified viral hepatitis B without hepatic coma; B19.20 Unspecified viral hepatitis C without hepatic coma; Z88.8 Allergy status to other drugs, medicaments and biological substances; F17.200 Nicotine dependence, unspecified, uncomplicated
CPT/HCPCS: 70450; 71045; 71260; 72125; 73000; 74176; 80047; 80076; 82077; 82550; 85027; 87631; 93005; 96365; 99285; J0690; Q9967

== ENCOUNTER 2022-05-01 16:39 | Inpatient (IN) | payer MEDICARE, MEDICAID ==
[~2022-05-01] VITALS: Ht 182.9 cm; Wt 68.2 kg
[2022-05-01 18:39] LABS: RSV AMPLIFICATION NEGATIVE (NEGATIVE)
[2022-05-01 18:50] LABS: AMPHETAMINES LEVEL URINE NEGATIVE (NEGATIVE); BARBITURATES URINE NEGATIVE (NEGATIVE); BENZODIAZEPINES URINE NEGATIVE (NEGATIVE); CANNABINOIDS URINE NEGATIVE (NEGATIVE); COCAINE METABOLITE URINE NEGATIVE (NEGATIVE); METHADONE URINE NEGATIVE (NEGATIVE); OPIATES URINE NEGATIVE (NEGATIVE); PHENCYCLIDINE URINE NEGATIVE (NEGATIVE)
[2022-05-01 19:15] LABS: HEMATOCRIT 38.5 % (42.0-52.0); HEMOGLOBIN 12.3 g/dl (13.5-17.5); MEAN CORPUSCULAR HEMOGLOBIN 30.5 pg (27.0-33.0); MEAN CORPUSCULAR HGB CONC 31.9 g/dl (32.0-36.5); MEAN CORPUSCULAR VOLUME 95.5 fl (80.0-96.0); PLATELET COUNT, AUTOMATED 448 10^3/uL (150-450); RED BLOOD COUNT 4.03 10^6/uL (4.30-6.10); WHITE BLOOD COUNT 6.8 10^3/uL (4.0-10.0)
[2022-05-01 19:47] LABS: ACETAMINOPHEN LEVEL 2.5 UG/ML (10.0-30.0); ALBUMIN 3.6 GM/DL (3.2-5.2); ALT/SGPT 27 U/L (12-78); BILIRUBIN,DIRECT 0.3 MG/DL (0.0-0.2); BILIRUBIN,TOTAL 0.4 MG/DL (0.2-1.0); BLOOD UREA NITROGEN 16 MG/DL (7-18); CALCIUM LEVEL 8.8 MG/DL (8.8-10.2); CARBON DIOXIDE LEVEL 29 MEQ/L (21-32); CHLORIDE LEVEL 107 MEQ/L (98-107); CREATININE FOR GFR 0.73 MG/DL (0.70-1.30); ETHYL ALCOHOL (ETHANOL) < 0.003 % (0.000-0.010); GLOMERULAR FILTRATION RATE > 60.0 (>49); GLUCOSE, FASTING 103 MG/DL (70-100); POTASSIUM SERUM 4.1 MEQ/L (3.5-5.1); SALICYLATE LEVEL < 1.7 MG/DL (5.0-30.0); SODIUM LEVEL 143 MEQ/L (136-145); THYROID STIMULATING HORMONE 0.876 uIU/ML (0.358-3.740); TOTAL PROTEIN 6.7 GM/DL (6.4-8.2)
[2022-05-01] MEDS ORDERED: PALIPERIDONE 3 MG ER TAB (INVEGA) PO SCH (21:00)
[2022-05-01] MEDS ORDERED: MELA5CAP2 PO (22:12)
[2022-05-01] MEDS ORDERED: NICO1DIS12 TOP (22:12)
[2022-05-01] MEDS ORDERED: HYDR50TA70 PO (22:12)
[2022-05-01] MEDS ORDERED: QUET400T42 PO (22:12)
[2022-05-01] MEDS ORDERED: FLUO10TA2 PO (22:12)
[2022-05-01] MEDS ORDERED: DULC10SU2 PR (22:12)
[2022-05-01] MEDS ORDERED: PANT-23 PO (22:12)
[2022-05-01] MEDS ORDERED: ACET-910 PO (22:12)
[2022-05-01] MEDS ORDERED: PROV108A INH (22:12)
[2022-05-01] MEDS ORDERED: SENN-80 PO (22:12)
[2022-05-01] MEDS ORDERED: CHAPSTICK TOP (22:12)
[2022-05-01] MEDS ORDERED: LOVE1INJ2 SC (22:12)
[2022-05-01] MEDS ORDERED: HOME MED LIST COMPLETE! XX SCH (22:15)
[2022-05-01] MEDS ORDERED: ACETAMINOPHEN 325 MG TAB PO SCH (22:55)
[2022-05-01] MEDS: hydrOXYzine 50 MG TAB PO PRN (23:02)
[2022-05-01] MEDS ORDERED: OLANZapine ORAL DISINTEGRATING TAB 5MG PO PRN (23:45)
[2022-05-01] MEDS ORDERED: ACETAMINOPHEN TAB 650MG DOSE (2X325MG) PO PRN (23:45)
[2022-05-01] MEDS ORDERED: traZODone 50 MG TAB PO PRN (23:45)
[2022-05-01] MEDS ORDERED: MAALOX 30 ML SUSP *UDC PO PRN (23:45)
[2022-05-01] MEDS ORDERED: MOM 30ML SUSPENSION UDC PO PRN (23:45)
[2022-05-02] MEDS ORDERED: traZODone 50 MG TAB PO PRN (08:40)
[2022-05-02] MEDS ORDERED: MAALOX 30 ML SUSP *UDC PO PRN (08:40)
[2022-05-02] MEDS ORDERED: MOM 30ML SUSPENSION UDC PO PRN (08:40)
[2022-05-02] MEDS ORDERED: ACETAMINOPHEN TAB 650MG DOSE (2X325MG) PO PRN (08:40)
[2022-05-02] MEDS ORDERED: PALIPERIDONE 3 MG ER TAB (INVEGA) PO SCH (09:00)
[2022-05-02 09:10] VITALS: BP 135/65
[2022-05-02] MEDS ORDERED: BISACODYL 10 MG SUPP PR PRN (13:25)
[2022-05-02] MEDS: ENOXAPARIN 30MG/0.3ML SYRINGE (J1650 PER 10MG) SC SCH ×2 (15:43→20:56)
[2022-05-02] MEDS: PANTOPRAZOLE 40MG TAB (PROTONIX) PO SCH (15:45)
[2022-05-02] MEDS: TAMSULOSIN 0.4 MG CAP PO SCH (15:45)
[2022-05-02] MEDS: NICOTINE 21MG/24HR 1 EA TRANSDERMAL TD SCH (15:47)
[2022-05-02 17:37] VITALS: BP 127/60
[2022-05-02] MEDS: QUEtiapine FUMARATE 200 MG TAB PO SCH (20:07)
[2022-05-02] MEDS: SENNA 8.6 MG TAB (SENOKOT) PO SCH (20:08)
[2022-05-02] MEDS ORDERED: SENNA 8.6 MG TAB (SENOKOT) PO SCH (21:00)
[2022-05-03 06:45] VITALS: BP 114/70
[2022-05-03] MEDS: NICOTINE 21MG/24HR 1 EA TRANSDERMAL TD SCH (09:29)
[2022-05-03] MEDS: ENOXAPARIN 30MG/0.3ML SYRINGE (J1650 PER 10MG) SC SCH ×2 (09:29→21:53)
[2022-05-03] MEDS: PANTOPRAZOLE 40MG TAB (PROTONIX) PO SCH (09:30)
[2022-05-03] MEDS: TAMSULOSIN 0.4 MG CAP PO SCH (09:30)
[2022-05-03] MEDS: ACETAMINOPHEN TAB 650MG DOSE (2X325MG) PO PRN (11:53)
[2022-05-03 18:29] VITALS: BP 110/52
[2022-05-03] MEDS: SENNA 8.6 MG TAB (SENOKOT) PO SCH (20:02)
[2022-05-03] MEDS: QUEtiapine FUMARATE 200 MG TAB PO SCH (20:02)
[2022-05-03] MEDS: GABAPENTIN 100 MG CAP PO SCH (20:02)
[2022-05-04 07:20] VITALS: BP 116/76
[2022-05-04] MEDS: ALBUTEROL 90 MCG/ACT 8GM HFA INHALER INH PRN (08:20)
[2022-05-04] MEDS: ENOXAPARIN 30MG/0.3ML SYRINGE (J1650 PER 10MG) SC SCH ×2 (08:21→20:02)
[2022-05-04] MEDS: PANTOPRAZOLE 40MG TAB (PROTONIX) PO SCH (08:21)
[2022-05-04] MEDS: TAMSULOSIN 0.4 MG CAP PO SCH (08:21)
[2022-05-04] MEDS: NICOTINE 21MG/24HR 1 EA TRANSDERMAL TD SCH (08:21)
[2022-05-04] MEDS: GABAPENTIN 100 MG CAP PO SCH ×3 (08:21→20:02)
[2022-05-04 08:28] VITALS: BP 114/72
[2022-05-04] MEDS: ANALGESIC BALM CRM 3OZ TOP SCH ×2 (11:26→20:03)
[2022-05-04 18:19] VITALS: BP 109/64
[2022-05-04] MEDS: QUEtiapine FUMARATE 200 MG TAB PO SCH (20:02)
[2022-05-04] MEDS: SENNA 8.6 MG TAB (SENOKOT) PO SCH (20:02)
[2022-05-05 06:34] LABS: HEMATOCRIT 39.3 % (42.0-52.0); HEMOGLOBIN 12.7 g/dl (13.5-17.5); MEAN CORPUSCULAR HEMOGLOBIN 30.8 pg (27.0-33.0); MEAN CORPUSCULAR HGB CONC 32.3 g/dl (32.0-36.5); MEAN CORPUSCULAR VOLUME 95.4 fl (80.0-96.0); PLATELET COUNT, AUTOMATED 400 10^3/uL (150-450); RED BLOOD COUNT 4.12 10^6/uL (4.30-6.10); WHITE BLOOD COUNT 6.2 10^3/uL (4.0-10.0)
[2022-05-05 06:55] VITALS: BP 124/68
[2022-05-05] MEDS: ENOXAPARIN 30MG/0.3ML SYRINGE (J1650 PER 10MG) SC SCH ×2 (08:13→21:01)
[2022-05-05] MEDS: NICOTINE 21MG/24HR 1 EA TRANSDERMAL TD SCH (08:14)
[2022-05-05] MEDS: PANTOPRAZOLE 40MG TAB (PROTONIX) PO SCH (08:15)
[2022-05-05] MEDS: GABAPENTIN 100 MG CAP PO SCH ×3 (08:15→20:04)
[2022-05-05] MEDS: ANALGESIC BALM CRM 3OZ TOP SCH ×2 (08:15→20:03)
[2022-05-05] MEDS: TAMSULOSIN 0.4 MG CAP PO SCH (08:15)
[2022-05-05] MEDS: buPROPion **XL** TABLET 150MG (WELLBUTRIN XL) PO SCH (12:33)
[2022-05-05] MEDS ORDERED: HOME MED LIST COMPLETE! XX SCH (16:20)
[2022-05-05 18:00] VITALS: BP 104/61
[2022-05-05] MEDS: SENNA 8.6 MG TAB (SENOKOT) PO SCH (20:03)
[2022-05-05] MEDS: QUEtiapine FUMARATE 200 MG TAB PO SCH (20:04)
[2022-05-06 06:39] VITALS: BP 133/84
[2022-05-06] MEDS: TAMSULOSIN 0.4 MG CAP PO SCH (08:52)
[2022-05-06] MEDS: GABAPENTIN 100 MG CAP PO SCH ×3 (08:52→20:02)
[2022-05-06] MEDS: ANALGESIC BALM CRM 3OZ TOP SCH ×2 (08:52→20:02)
[2022-05-06] MEDS: PANTOPRAZOLE 40MG TAB (PROTONIX) PO SCH (08:53)
[2022-05-06] MEDS: NICOTINE 21MG/24HR 1 EA TRANSDERMAL TD SCH (08:53)
[2022-05-06] MEDS: buPROPion **XL** TABLET 150MG (WELLBUTRIN XL) PO SCH (08:53)
[2022-05-06] MEDS: ENOXAPARIN 30MG/0.3ML SYRINGE (J1650 PER 10MG) SC SCH ×2 (08:54→20:04)
[2022-05-06 18:00] VITALS: BP 125/55
[2022-05-06] MEDS: SENNA 8.6 MG TAB (SENOKOT) PO SCH (20:02)
[2022-05-06] MEDS: QUEtiapine FUMARATE 200 MG TAB PO SCH (20:03)
[2022-05-07 07:01] VITALS: BP 130/75
[2022-05-07] MEDS: buPROPion **XL** TABLET 150MG (WELLBUTRIN XL) PO SCH (08:23)
[2022-05-07] MEDS: PANTOPRAZOLE 40MG TAB (PROTONIX) PO SCH (08:23)
[2022-05-07] MEDS: TAMSULOSIN 0.4 MG CAP PO SCH (08:23)
[2022-05-07] MEDS: GABAPENTIN 100 MG CAP PO SCH ×3 (08:23→20:22)
[2022-05-07] MEDS: NICOTINE 21MG/24HR 1 EA TRANSDERMAL TD SCH (08:24)
[2022-05-07] MEDS: ANALGESIC BALM CRM 3OZ TOP SCH ×2 (08:25→20:22)
[2022-05-07] MEDS: ENOXAPARIN 30MG/0.3ML SYRINGE (J1650 PER 10MG) SC SCH (08:25)
[2022-05-07 18:42] VITALS: BP 136/71
[2022-05-07] MEDS: SENNA 8.6 MG TAB (SENOKOT) PO SCH (20:22)
[2022-05-07] MEDS: QUEtiapine FUMARATE 200 MG TAB PO SCH (20:22)
[2022-05-07] MEDS: ACETAMINOPHEN TAB 650MG DOSE (2X325MG) PO PRN (20:31)
[2022-05-08 06:20] VITALS: BP 141/79
[2022-05-08 08:18] LABS: HEMATOCRIT 38.2 % (42.0-52.0); HEMOGLOBIN 12.4 g/dl (13.5-17.5); MEAN CORPUSCULAR HGB CONC 32.5 g/dl (32.0-36.5); MEAN CORPUSCULAR VOLUME 95.5 fl (80.0-96.0); PLATELET COUNT, AUTOMATED 365 10^3/uL (150-450); WHITE BLOOD COUNT 7.4 10^3/uL (4.0-10.0)
[2022-05-08] MEDS: NICOTINE 21MG/24HR 1 EA TRANSDERMAL TD SCH (09:00)
[2022-05-08] MEDS: ANALGESIC BALM CRM 3OZ TOP SCH ×2 (09:01→21:34)
[2022-05-08] MEDS: buPROPion **XL** TABLET 150MG (WELLBUTRIN XL) PO SCH (09:01)
[2022-05-08] MEDS: TAMSULOSIN 0.4 MG CAP PO SCH (09:01)
[2022-05-08] MEDS: PANTOPRAZOLE 40MG TAB (PROTONIX) PO SCH (09:01)
[2022-05-08] MEDS: GABAPENTIN 100 MG CAP PO SCH ×3 (09:01→21:34)
[2022-05-08 18:47] VITALS: BP 115/72
[2022-05-08] MEDS: QUEtiapine FUMARATE 200 MG TAB PO SCH (21:33)
[2022-05-08] MEDS: QUEtiapine FUMARATE 50MG TAB PO SCH (21:33)
[2022-05-08] MEDS: SENNA 8.6 MG TAB (SENOKOT) PO SCH (21:34)
[2022-05-09 07:05] VITALS: BP 138/74
[2022-05-09] MEDS: PANTOPRAZOLE 40MG TAB (PROTONIX) PO SCH (10:42)
[2022-05-09] MEDS: GABAPENTIN 100 MG CAP PO SCH ×3 (10:42→20:00)
[2022-05-09] MEDS: buPROPion **XL** TABLET 150MG (WELLBUTRIN XL) PO SCH (10:42)
[2022-05-09] MEDS: ANALGESIC BALM CRM 3OZ TOP SCH ×2 (10:43→20:01)
[2022-05-09] MEDS: TAMSULOSIN 0.4 MG CAP PO SCH (10:43)
[2022-05-09] MEDS: OLANZapine ORAL DISINTEGRATING TAB 5MG PO PRN (10:43)
[2022-05-09] MEDS: NICOTINE 21MG/24HR 1 EA TRANSDERMAL TD SCH (10:52)
[2022-05-09] MEDS: QUEtiapine FUMARATE 50MG TAB PO SCH (20:01)
[2022-05-09] MEDS: SENNA 8.6 MG TAB (SENOKOT) PO SCH (20:01)
[2022-05-09] MEDS: QUEtiapine FUMARATE 200 MG TAB PO SCH (20:01)
[2022-05-10 06:00] VITALS: BP 120/71
[2022-05-10] MEDS: hydrOXYzine 50 MG TAB PO PRN (07:29)
[2022-05-10] MEDS: NICOTINE 21MG/24HR 1 EA TRANSDERMAL TD SCH (09:54)
[2022-05-10] MEDS: buPROPion **XL** TABLET 150MG (WELLBUTRIN XL) PO SCH (09:55)
[2022-05-10] MEDS: GABAPENTIN 100 MG CAP PO SCH ×3 (09:55→20:23)
[2022-05-10] MEDS: TAMSULOSIN 0.4 MG CAP PO SCH (09:55)
[2022-05-10] MEDS: PANTOPRAZOLE 40MG TAB (PROTONIX) PO SCH (09:55)
[2022-05-10] MEDS: ANALGESIC BALM CRM 3OZ TOP SCH ×2 (09:56→20:23)
[2022-05-10] MEDS: ACETAMINOPHEN TAB 650MG DOSE (2X325MG) PO PRN ×2 (13:00→21:11)
[2022-05-10] MEDS: OLANZapine ORAL DISINTEGRATING TAB 5MG PO PRN (13:00)
[2022-05-10] MEDS: SENNA 8.6 MG TAB (SENOKOT) PO SCH (20:23)
[2022-05-10] MEDS: QUEtiapine FUMARATE 200 MG TAB PO SCH (20:23)
[2022-05-10] MEDS: QUEtiapine FUMARATE 50MG TAB PO SCH (20:23)
[2022-05-11 06:44] VITALS: BP 109/60
[2022-05-11 07:44] LABS: HEMATOCRIT 38.4 % (42.0-52.0); HEMOGLOBIN 12.5 g/dl (13.5-17.5); MEAN CORPUSCULAR HEMOGLOBIN 30.4 pg (27.0-33.0); MEAN CORPUSCULAR HGB CONC 32.6 g/dl (32.0-36.5); MEAN CORPUSCULAR VOLUME 93.4 fl (80.0-96.0); PLATELET COUNT, AUTOMATED 326 10^3/uL (150-450); RED BLOOD COUNT 4.11 10^6/uL (4.30-6.10)
[2022-05-11] MEDS: buPROPion **XL** TABLET 150MG (WELLBUTRIN XL) PO SCH (08:02)
[2022-05-11] MEDS: GABAPENTIN 100 MG CAP PO SCH ×3 (08:02→20:14)
[2022-05-11] MEDS: TAMSULOSIN 0.4 MG CAP PO SCH (08:02)
[2022-05-11] MEDS: NICOTINE 21MG/24HR 1 EA TRANSDERMAL TD SCH (08:02)
[2022-05-11] MEDS: PANTOPRAZOLE 40MG TAB (PROTONIX) PO SCH (08:02)
[2022-05-11] MEDS: ANALGESIC BALM CRM 3OZ TOP SCH ×2 (08:03→20:13)
[2022-05-11] MEDS: ACETAMINOPHEN TAB 650MG DOSE (2X325MG) PO PRN ×2 (08:29→20:19)
[2022-05-11 18:00] VITALS: BP 104/67
[2022-05-11] MEDS: QUEtiapine FUMARATE 50MG TAB PO SCH (20:14)
[2022-05-11] MEDS: QUEtiapine FUMARATE 200 MG TAB PO SCH (20:15)
[2022-05-11] MEDS: SENNA 8.6 MG TAB (SENOKOT) PO SCH (21:19)
[2022-05-12 06:38] VITALS: BP 118/76
[2022-05-12] MEDS: PANTOPRAZOLE 40MG TAB (PROTONIX) PO SCH (08:48)
[2022-05-12] MEDS: buPROPion **XL** TABLET 150MG (WELLBUTRIN XL) PO SCH (08:48)
[2022-05-12] MEDS: GABAPENTIN 100 MG CAP PO SCH ×3 (08:48→21:00)
[2022-05-12] MEDS: TAMSULOSIN 0.4 MG CAP PO SCH (08:48)
[2022-05-12] MEDS: ANALGESIC BALM CRM 3OZ TOP SCH ×2 (08:49→20:41)
[2022-05-12] MEDS: hydrOXYzine 50 MG TAB PO PRN (08:49)
[2022-05-12] MEDS: OLANZapine ORAL DISINTEGRATING TAB 5MG PO PRN (08:49)
[2022-05-12] MEDS: NICOTINE 21MG/24HR 1 EA TRANSDERMAL TD SCH (08:53)
[2022-05-12] MEDS: ACETAMINOPHEN TAB 650MG DOSE (2X325MG) PO PRN (11:20)
[2022-05-12] MEDS: SENNA 8.6 MG TAB (SENOKOT) PO SCH (21:00)
[2022-05-12] MEDS: QUEtiapine FUMARATE 200 MG TAB PO SCH (21:00)
[2022-05-12] MEDS: QUEtiapine FUMARATE 50MG TAB PO SCH (21:00)
[2022-05-13 06:29] VITALS: BP 155/85
[2022-05-13] MEDS: PANTOPRAZOLE 40MG TAB (PROTONIX) PO SCH ×2 (08:13→10:48)
[2022-05-13] MEDS: ANALGESIC BALM CRM 3OZ TOP SCH ×3 (08:13→20:34)
[2022-05-13] MEDS: TAMSULOSIN 0.4 MG CAP PO SCH ×2 (08:13→10:48)
[2022-05-13] MEDS: NICOTINE 21MG/24HR 1 EA TRANSDERMAL TD SCH ×2 (08:13→10:53)
[2022-05-13] MEDS: buPROPion **XL** TABLET 150MG (WELLBUTRIN XL) PO SCH ×2 (08:13→10:48)
[2022-05-13] MEDS: GABAPENTIN 100 MG CAP PO SCH ×4 (08:13→20:34)
[2022-05-13] MEDS: ALBUTEROL 90 MCG/ACT 8GM HFA INHALER INH PRN (14:19)
[2022-05-13 18:27] VITALS: BP 95/66
[2022-05-13] MEDS: SENNA 8.6 MG TAB (SENOKOT) PO SCH (20:34)
[2022-05-13] MEDS: QUEtiapine FUMARATE 200 MG TAB PO SCH (20:34)
[2022-05-13] MEDS: QUEtiapine FUMARATE 50MG TAB PO SCH (20:34)
[2022-05-14 07:18] LABS: HEMATOCRIT 39.4 % (42.0-52.0); HEMOGLOBIN 12.9 g/dl (13.5-17.5); MEAN CORPUSCULAR HEMOGLOBIN 31.3 pg (27.0-33.0); MEAN CORPUSCULAR HGB CONC 32.7 g/dl (32.0-36.5); MEAN CORPUSCULAR VOLUME 95.6 fl (80.0-96.0); PLATELET COUNT, AUTOMATED 292 10^3/uL (150-450); RED BLOOD COUNT 4.12 10^6/uL (4.30-6.10); WHITE BLOOD COUNT 6.6 10^3/uL (4.0-10.0)
[2022-05-14] MEDS: buPROPion **XL** TABLET 150MG (WELLBUTRIN XL) PO SCH (08:37)
[2022-05-14] MEDS: TAMSULOSIN 0.4 MG CAP PO SCH (08:37)
[2022-05-14] MEDS: GABAPENTIN 100 MG CAP PO SCH ×3 (08:37→20:30)
[2022-05-14] MEDS: PANTOPRAZOLE 40MG TAB (PROTONIX) PO SCH (08:37)
[2022-05-14] MEDS: ANALGESIC BALM CRM 3OZ TOP SCH ×2 (08:43→20:26)
[2022-05-14] MEDS: NICOTINE 21MG/24HR 1 EA TRANSDERMAL TD SCH (08:43)
[2022-05-14 18:31] VITALS: BP 109/63
[2022-05-14] MEDS: QUEtiapine FUMARATE 50MG TAB PO SCH (20:29)
[2022-05-14] MEDS: QUEtiapine FUMARATE 200 MG TAB PO SCH (20:29)
[2022-05-14] MEDS: SENNA 8.6 MG TAB (SENOKOT) PO SCH (20:30)
[2022-05-15 06:57] VITALS: BP 124/66
[2022-05-15] MEDS: NICOTINE 21MG/24HR 1 EA TRANSDERMAL TD SCH (08:45)
[2022-05-15] MEDS: ANALGESIC BALM CRM 3OZ TOP SCH ×2 (08:45→20:08)
[2022-05-15] MEDS: TAMSULOSIN 0.4 MG CAP PO SCH (08:46)
[2022-05-15] MEDS: PANTOPRAZOLE 40MG TAB (PROTONIX) PO SCH (08:46)
[2022-05-15] MEDS: buPROPion **XL** TABLET 150MG (WELLBUTRIN XL) PO SCH (08:46)
[2022-05-15] MEDS: GABAPENTIN 100 MG CAP PO SCH ×3 (08:46→20:08)
[2022-05-15] MEDS: ALBUTEROL 90 MCG/ACT 8GM HFA INHALER INH PRN (09:05)
[2022-05-15 09:26] VITALS: BP_SYST 114; BP_SYST 119; BP_SYST 98; BP_DIAS 68; BP_DIAS 70; BP_DIAS 72
[2022-05-15 18:34] VITALS: BP 114/64
[2022-05-15] MEDS: ACETAMINOPHEN TAB 650MG DOSE (2X325MG) PO PRN (20:08)
[2022-05-15] MEDS: SENNA 8.6 MG TAB (SENOKOT) PO SCH (20:08)
[2022-05-16 06:56] VITALS: BP 147/70
[2022-05-16] MEDS: ANALGESIC BALM CRM 3OZ TOP SCH ×2 (08:29→20:02)
[2022-05-16] MEDS: TAMSULOSIN 0.4 MG CAP PO SCH (08:29)
[2022-05-16] MEDS: buPROPion **XL** TABLET 150MG (WELLBUTRIN XL) PO SCH (08:29)
[2022-05-16] MEDS: GABAPENTIN 100 MG CAP PO SCH ×3 (08:29→20:00)
[2022-05-16] MEDS: PANTOPRAZOLE 40MG TAB (PROTONIX) PO SCH (08:29)
[2022-05-16] MEDS: NICOTINE 21MG/24HR 1 EA TRANSDERMAL TD SCH (08:29)
[2022-05-16] MEDS: ALBUTEROL 90 MCG/ACT 8GM HFA INHALER INH PRN ×2 (08:31→16:16)
[2022-05-16 18:00] VITALS: BP 108/59
[2022-05-16] MEDS: SENNA 8.6 MG TAB (SENOKOT) PO SCH (20:00)
[2022-05-16] MEDS: QUEtiapine FUMARATE 200 MG TAB PO SCH (21:05)
[2022-05-17 06:29] VITALS: BP 131/75
[2022-05-17] MEDS: buPROPion **XL** TABLET 150MG (WELLBUTRIN XL) PO SCH (08:12)
[2022-05-17] MEDS: ACETAMINOPHEN TAB 650MG DOSE (2X325MG) PO PRN ×2 (08:13→17:03)
[2022-05-17] MEDS: TAMSULOSIN 0.4 MG CAP PO SCH (08:13)
[2022-05-17] MEDS: GABAPENTIN 100 MG CAP PO SCH ×3 (08:13→20:02)
[2022-05-17] MEDS: PANTOPRAZOLE 40MG TAB (PROTONIX) PO SCH (08:13)
[2022-05-17] MEDS: ALBUTEROL 90 MCG/ACT 8GM HFA INHALER INH PRN (08:17)
[2022-05-17] MEDS: ANALGESIC BALM CRM 3OZ TOP SCH ×2 (08:24→20:02)
[2022-05-17] MEDS: NICOTINE 21MG/24HR 1 EA TRANSDERMAL TD SCH (08:24)
[2022-05-17 18:00] VITALS: BP 96/57
[2022-05-17] MEDS: QUEtiapine FUMARATE 200 MG TAB PO SCH (20:02)
[2022-05-17] MEDS: SENNA 8.6 MG TAB (SENOKOT) PO SCH (20:02)
[2022-05-18 06:57] VITALS: BP 110/80
[2022-05-18] MEDS: NICOTINE 21MG/24HR 1 EA TRANSDERMAL TD SCH (09:00)
[2022-05-18] MEDS: buPROPion **XL** TABLET 150MG (WELLBUTRIN XL) PO SCH (09:03)
[2022-05-18] MEDS: TAMSULOSIN 0.4 MG CAP PO SCH (09:03)
[2022-05-18] MEDS: PANTOPRAZOLE 40MG TAB (PROTONIX) PO SCH (09:03)
[2022-05-18] MEDS: GABAPENTIN 100 MG CAP PO SCH ×3 (09:03→20:02)
[2022-05-18] MEDS: ANALGESIC BALM CRM 3OZ TOP SCH ×2 (09:04→20:02)
[2022-05-18] MEDS: ACETAMINOPHEN TAB 650MG DOSE (2X325MG) PO PRN (09:07)
[2022-05-18 09:34] VITALS: BP_SYST 101; BP_SYST 115; BP_SYST 131; BP_DIAS 61; BP_DIAS 65; BP_DIAS 67
[2022-05-18 18:00] VITALS: BP 106/59
[2022-05-18] MEDS: SENNA 8.6 MG TAB (SENOKOT) PO SCH (20:02)
[2022-05-18] MEDS: QUEtiapine FUMARATE 200 MG TAB PO SCH (20:02)
[2022-05-19 06:21] VITALS: BP 123/77
[2022-05-19] MEDS: GABAPENTIN 100 MG CAP PO SCH (08:29)
[2022-05-19] MEDS: PANTOPRAZOLE 40MG TAB (PROTONIX) PO SCH (08:29)
[2022-05-19] MEDS: TAMSULOSIN 0.4 MG CAP PO SCH (08:29)
[2022-05-19] MEDS: buPROPion **XL** TABLET 150MG (WELLBUTRIN XL) PO SCH (08:29)
[2022-05-19] MEDS: NICOTINE 21MG/24HR 1 EA TRANSDERMAL TD SCH (08:30)
[2022-05-19] MEDS: ANALGESIC BALM CRM 3OZ TOP SCH (08:31)
[2022-05-19] MEDS ORDERED: QUET200T2 PO (09:03)
[2022-05-19] MEDS ORDERED: GABA-1171 PO (09:03)
[2022-05-19] MEDS ORDERED: NICO1DIS12 TOP (09:03)
[2022-05-19] MEDS ORDERED: OLAN5ZYD PO (09:03)
[2022-05-19] MEDS ORDERED: BUPR150T12 PO (09:03)
[2022-05-19] MEDS: ACETAMINOPHEN TAB 650MG DOSE (2X325MG) PO PRN (12:32)
== END 2022-05-19 13:47 | disposition home or self-care (01) | DRG 885 ==
LOC: M ED 16:39 → M PSY 23:41 → M ED INP 23:41 → M PSY 05-02 09:35
PROVIDERS: ADMIT Student in an Organized Health Care Education/Training Program; ATTEND Student in an Organized Health Care Education/Training Program
DX: F33.1 Major depressive disorder, recurrent, moderate (principal); R45.851 Suicidal ideations; F17.200 Nicotine dependence, unspecified, uncomplicated; F10.11 Alcohol abuse, in remission; N40.0 Benign prostatic hyperplasia without lower urinary tract symptoms; J44.9 Chronic obstructive pulmonary disease, unspecified; G47.00 Insomnia, unspecified; F60.89 Other specific personality disorders; Z91.51 Personal history of suicidal behavior; Z79.899 Other long term (current) drug therapy; Z88.5 Allergy status to narcotic agent; Z88.8 Allergy status to other drugs, medicaments and biological substances; S42.022D Displaced fracture of shaft of left clavicle, subsequent encounter for fracture with routine healing; S22.42XD Multiple fractures of ribs, left side, subsequent encounter for fracture with routine healing

== ENCOUNTER 2022-07-06 05:48 | Emergency (ER) | payer MEDICARE, MEDICAID ==
[~2022-07-06] VITALS: Ht 180.3 cm; Wt 70.5 kg
[~2022-07-06 05:48] MED LIST changes: +ACET-910 PO; +ALBU6.7H6 INH; +BUPR150T12 PO; +CHAPSTICK TOP; +DULC10SU2 PR; +FLUO10TA2 PO; +GABA-1171 PO; +LOVE1INJ2 SC; +MELA5CAP2 PO; +NICO1DIS12 TOP; +OLAN5ZYD PO; +PANT-23 PO; +QUET200T2 PO; +QUET400T42 PO; +SENN-80 PO
[2022-07-06 05:49] VITALS: BP 132/69
== END 2022-07-06 07:11 | disposition left against medical advice (07) ==
LOC: M ED 05:48
DX: Z53.29 Procedure and treatment not carried out because of patient's decision for other reasons (principal)

== ENCOUNTER 2022-10-03 09:34 | Emergency (ER) | payer MEDICARE, MEDICAID ==
[~2022-10-03] VITALS: Ht 180.3 cm; Wt 76.8 kg
[~2022-10-03 09:34] MED LIST changes: +QUET150T14 PO; -QUET150T2 PO
[2022-10-03 09:35] VITALS: BP 107/58
[2022-10-03] MEDS ORDERED: GABAPENTIN 100 MG CAP PO ONE (11:40)
== END 2022-10-03 11:50 | disposition home or self-care (01) ==
LOC: M ED 09:34
DX: Z76.0 Encounter for issue of repeat prescription (principal); J44.9 Chronic obstructive pulmonary disease, unspecified; F31.9 Bipolar disorder, unspecified; F41.9 Anxiety disorder, unspecified; G89.29 Other chronic pain; M54.9 Dorsalgia, unspecified; B19.20 Unspecified viral hepatitis C without hepatic coma; B19.10 Unspecified viral hepatitis B without hepatic coma; Z87.891 Personal history of nicotine dependence; Z88.8 Allergy status to other drugs, medicaments and biological substances; Z88.5 Allergy status to narcotic agent; Z79.899 Other long term (current) drug therapy

== ENCOUNTER → 2022-11-16 | Outpatient (REF) | payer MEDICAID, MEDICARE ==
[2022-11-16 15:16] LABS: THYROID STIMULATING HORMONE 0.745 uIU/ML (0.55-4.78)
[2022-11-16 15:20] LABS: HEMOGLOBIN A1c 4.9 % (4.0-6.0)
[2022-11-16 15:24] LABS: BASO # 0.1 10^3/uL (0.0-0.2); BASO % 0.9 % (0.0-1.0); EOS # 0.2 10^3/uL (0.0-0.5); EOS % 2.3 % (0.0-3.0); HEMATOCRIT 44.8 % (42.0-52.0); HEMOGLOBIN 14.3 g/dl (13.5-17.5); LYMPH # 1.8 10^3/uL (1.5-5.0); LYMPH % 22.5 % (24.0-44.0); MEAN CORPUSCULAR HEMOGLOBIN 30.8 pg (27.0-33.0); MEAN CORPUSCULAR HGB CONC 31.9 g/dl (32.0-36.5); MEAN CORPUSCULAR VOLUME 96.3 fl (80.0-96.0); MONO # 0.6 10^3/uL (0.0-0.8); NEUTROPHILS # 5.3 10^3/uL (1.5-8.5); NEUTROPHILS % 66.8 % (36.0-66.0); PLATELET COUNT, AUTOMATED 272 10^3/uL (150-450); RED BLOOD COUNT 4.65 10^6/uL (4.30-6.10)
[2022-11-16 17:21] LABS: ALBUMIN 4.2 G/DL (3.2-5.2); ALKALINE PHOSPHATASE 103 U/L (46-116); ALT/SGPT 16 U/L (7.0-40); AST/SGOT 21 U/L (<34); BILIRUBIN,TOTAL 0.7 MG/DL (0.3-1.2); BLOOD UREA NITROGEN 21 MG/DL (9-23); CALCIUM LEVEL 9.7 MG/DL (8.3-10.6); CARBON DIOXIDE LEVEL 31 MMOL/L (20-31); CHLORIDE LEVEL 103 MMOL/L (98-107); CREATININE FOR GFR 0.83 MG/DL (0.70-1.30); GLOMERULAR FILTRATION RATE > 60.0 (>49); GLUCOSE, FASTING 89 MG/DL (74-106); POTASSIUM SERUM 4.3 MMOL/L (3.5-5.1); SODIUM LEVEL 141 MMOL/L (136-145); TOTAL PROTEIN 7.1 G/DL (5.7-8.2)
== END ==
LOC: M LAB REF 12:33
PROVIDERS: ATTEND Pediatrics
DX: R35.0 Frequency of micturition (principal); M54.50 Low back pain, unspecified; Z51.81 Encounter for therapeutic drug level monitoring; Z76.89 Persons encountering health services in other specified circumstances

== ENCOUNTER → 2022-11-27 | Outpatient (CLI) | payer MEDICARE, MEDICAID ==
[~2022-11-27] MED LIST changes: -FLUO10TA2 PO; +FLUO1TAB PO
== END ==
LOC: M RAD 11:42
PROVIDERS: ATTEND Pediatrics
DX: M54.50 Low back pain, unspecified (principal)

== ENCOUNTER → 2022-11-30 | Outpatient (CLI) | payer MEDICARE, MEDICAID | LOC: M LAB 08:40 | PROVIDERS: ATTEND Nurse Practitioner Women's Health | DX: R97.20 Elevated prostate specific antigen [PSA] (principal) ==

== ENCOUNTER 2022-12-12 10:15 | Emergency (ER) | payer MEDICARE, MEDICAID ==
[~2022-12-12] VITALS: Ht 180.3 cm; Wt 74.5 kg
[2022-12-12 10:35] VITALS: BP 100/68
[2022-12-12] MEDS ORDERED: TAMS1CAP17 (10:38)
== END 2022-12-12 11:26 | disposition home or self-care (01) ==
LOC: M ED 10:15
DX: R41.3 Other amnesia (principal); J44.9 Chronic obstructive pulmonary disease, unspecified; M48.00 Spinal stenosis, site unspecified; F31.9 Bipolar disorder, unspecified; F17.200 Nicotine dependence, unspecified, uncomplicated; Z88.5 Allergy status to narcotic agent; Z88.8 Allergy status to other drugs, medicaments and biological substances

== ENCOUNTER 2022-12-22 10:03 | Emergency (ER) | payer MEDICARE, MEDICAID ==
[~2022-12-22] VITALS: Ht 180.3 cm; Wt 75.2 kg
[~2022-12-22 10:03] MED LIST changes: +TAMS1CAP17
[2022-12-22] MEDS ORDERED: IBUP-1022 (10:30)
[2022-12-22] MEDS ORDERED: QUET300T93 PO (11:44)
[2022-12-22 12:01] LABS: BASO # 0.1 10^3/uL (0.0-0.2); BASO % 1.2 % (0.0-1.0); EOS # 0.2 10^3/uL (0.0-0.5); EOS % 3.8 % (0.0-3.0); HEMOGLOBIN 12.2 g/dl (13.5-17.5); LYMPH # 1.4 10^3/uL (1.5-5.0); LYMPH % 23.7 % (24.0-44.0); MEAN CORPUSCULAR HEMOGLOBIN 30.4 pg (27.0-33.0); MEAN CORPUSCULAR HGB CONC 32.1 g/dl (32.0-36.5); MEAN CORPUSCULAR VOLUME 94.8 fl (80.0-96.0); MONO # 0.4 10^3/uL (0.0-0.8); MONO % 6.5 % (2.0-8.0); NEUTROPHILS # 3.8 10^3/uL (1.5-8.5); NEUTROPHILS % 64.5 % (36.0-66.0); PLATELET COUNT, AUTOMATED 214 10^3/uL (150-450); RED BLOOD COUNT 4.01 10^6/uL (4.30-6.10); WHITE BLOOD COUNT 5.9 10^3/uL (4.0-10.0)
[2022-12-22 12:02] LABS: ALBUMIN 3.8 G/DL (3.2-5.2); ALKALINE PHOSPHATASE 84 U/L (46-116); ALT/SGPT 11 U/L (7.0-40); AST/SGOT 14 U/L (<34); BILIRUBIN,DIRECT 0.2 MG/DL (<0.4); BILIRUBIN,TOTAL 0.6 MG/DL (0.3-1.2); BLOOD UREA NITROGEN 17 MG/DL (9-23); CALCIUM LEVEL 8.8 MG/DL (8.3-10.6); CARBON DIOXIDE LEVEL 30 MMOL/L (20-31); CHLORIDE LEVEL 109 MMOL/L (98-107); CREATININE FOR GFR 0.84 MG/DL (0.70-1.30); GLOMERULAR FILTRATION RATE > 60.0 (>49); GLUCOSE, FASTING 109 MG/DL (74-106); POTASSIUM SERUM 3.9 MMOL/L (3.5-5.1); SODIUM LEVEL 143 MMOL/L (136-145); TOTAL PROTEIN 6.2 G/DL (5.7-8.2)
[2022-12-22 12:13] VITALS: BP 143/73
[2022-12-22] MEDS ORDERED: QUET200T79 PO (12:29)
== END 2022-12-22 12:38 | disposition home or self-care (01) ==
LOC: M ED 10:03 → EDBD 10:03 → M ED 12:38
DX: R53.1 Weakness (principal); T43.595A Adverse effect of other antipsychotics and neuroleptics, initial encounter; J44.9 Chronic obstructive pulmonary disease, unspecified; F31.9 Bipolar disorder, unspecified; B19.10 Unspecified viral hepatitis B without hepatic coma; B18.2 Chronic viral hepatitis C; N40.0 Benign prostatic hyperplasia without lower urinary tract symptoms; Z88.8 Allergy status to other drugs, medicaments and biological substances; Z79.899 Other long term (current) drug therapy

== ENCOUNTER 2023-01-02 21:25 | Emergency (ER) | payer MEDICARE, MEDICAID ==
[~2023-01-02] VITALS: Ht 177.8 cm; Wt 74.3 kg
[~2023-01-02 21:25] MED LIST changes: +IBUP-1022; +QUET200T79 PO; +QUET300T93 PO
[2023-01-02] MEDS ORDERED: IPRATROPIUM 0.5MG/ALBUTEROL 2.5MG INH SOL UD 3ML (DUONEB) NEB ONE (21:45)
[2023-01-02] MEDS ORDERED: ALBUTEROL SULFATE 2.5MG/0.5ML INH NEB SOLN INH ONE (21:45)
[2023-01-02 21:53] LABS: BASO # 0.1 10^3/uL (0.0-0.2); BASO % 0.9 % (0.0-1.0); EOS # 0.3 10^3/uL (0.0-0.5); EOS % 3.9 % (0.0-3.0); HEMATOCRIT 38.9 % (42.0-52.0); HEMOGLOBIN 12.4 g/dl (13.5-17.5); LYMPH # 1.7 10^3/uL (1.5-5.0); LYMPH % 20.1 % (24.0-44.0); MEAN CORPUSCULAR HEMOGLOBIN 30.2 pg (27.0-33.0); MEAN CORPUSCULAR HGB CONC 31.9 g/dl (32.0-36.5); MEAN CORPUSCULAR VOLUME 94.6 fl (80.0-96.0); MONO # 0.7 10^3/uL (0.0-0.8); MONO % 8.1 % (2.0-8.0); NEUTROPHILS # 5.5 10^3/uL (1.5-8.5); NEUTROPHILS % 66.8 % (36.0-66.0); PLATELET COUNT, AUTOMATED 206 10^3/uL (150-450); RED BLOOD COUNT 4.11 10^6/uL (4.30-6.10); WHITE BLOOD COUNT 8.2 10^3/uL (4.0-10.0)
[2023-01-02 22:19] LABS: CPK CREATINE PHOSPHOKINASE 74 U/L (46-171)
[2023-01-02 22:22] LABS: ALBUMIN 3.8 G/DL (3.2-5.2); ALKALINE PHOSPHATASE 101 U/L (46-116); ALT/SGPT 12 U/L (7.0-40); AST/SGOT 14 U/L (<34); BILIRUBIN,DIRECT 0.2 MG/DL (<0.4); BILIRUBIN,TOTAL 0.5 MG/DL (0.3-1.2); BLOOD UREA NITROGEN 21 MG/DL (9-23); CALCIUM LEVEL 9.1 MG/DL (8.3-10.6); CARBON DIOXIDE LEVEL 28 MMOL/L (20-31); CHLORIDE LEVEL 110 MMOL/L (98-107); CK-MB VALUE MASS < 1.0 NG/ML (<3.6); CREATININE FOR GFR 0.91 MG/DL (0.70-1.30); GLOMERULAR FILTRATION RATE > 60.0 (>42); GLUCOSE, FASTING 115 MG/DL (74-106); MB/CK RELATIVE INDEX 1.35 (< OR =4); POTASSIUM SERUM 4.1 MMOL/L (3.5-5.1); SODIUM LEVEL 143 MMOL/L (136-145); THYROID STIMULATING HORMONE 1.116 uIU/ML (0.55-4.78); TOTAL PROTEIN 6.4 G/DL (5.7-8.2)
[2023-01-02 22:43] VITALS: BP 113/80
[2023-01-02] MEDS ORDERED: VENTAER INH (22:45)
[2023-01-02] MEDS ORDERED: PRED20TA PO (22:45)
[2023-01-02] MEDS ORDERED: predniSONE 20 MG TAB PO ONE (23:00)
[2023-01-02 23:17] LABS: CK-MB VALUE MASS < 1.0 NG/ML (<3.6)
[2023-01-02 23:20] LABS: CPK CREATINE PHOSPHOKINASE 79 U/L (46-171); MB/CK RELATIVE INDEX 1.26 (< OR =4)
== END 2023-01-02 23:04 | disposition home or self-care (01) ==
LOC: M ED 21:25 → EDBD 21:25 → M ED 23:04
DX: J44.1 Chronic obstructive pulmonary disease with (acute) exacerbation (principal); B19.10 Unspecified viral hepatitis B without hepatic coma; B18.2 Chronic viral hepatitis C; N40.1 Benign prostatic hyperplasia with lower urinary tract symptoms; F17.200 Nicotine dependence, unspecified, uncomplicated; Z88.8 Allergy status to other drugs, medicaments and biological substances; Z79.899 Other long term (current) drug therapy
CPT/HCPCS: 36415; 71045; 80048; 80076; 82550; 82553; 83880; 84436; 84443; 84484; 85025; 87486; 87581; 87633; 87798; 93005; 93041; 94640; 94760; 99284; J7512

== ENCOUNTER 2023-01-21 21:00 | Emergency (ER) | payer MEDICARE, MEDICAID ==
[~2023-01-21 21:00] MED LIST changes: +FLUT50SP17 NARES; -FLUTISP NARES; +PRED20TA PO; +SENN-186 PO; -SENN-80 PO; +VENTAER INH
[2023-01-21 21:08] VITALS: BP 138/58
[2023-01-21] MEDS ORDERED: DERMABOND TOPICAL SKIN ADHESIVE TOP ONE (21:15)
== END 2023-01-21 22:46 | disposition home or self-care (01) ==
LOC: M ED 21:00
DX: S01.81XA Laceration without foreign body of other part of head, initial encounter (principal); S00.83XA Contusion of other part of head, initial encounter; W19.XXXA Unspecified fall, initial encounter; Y92.019 Unspecified place in single-family (private) house as the place of occurrence of the external cause; Y93.89 Activity, other specified; Y99.8 Other external cause status; B17.9 Acute viral hepatitis, unspecified; F31.9 Bipolar disorder, unspecified; Z88.8 Allergy status to other drugs, medicaments and biological substances; Z79.51 Long term (current) use of inhaled steroids; Z79.899 Other long term (current) drug therapy

== ENCOUNTER 2023-01-31 09:44 | Emergency (ER) | payer MEDICARE, MEDICAID ==
[~2023-01-31] VITALS: Ht 180.3 cm; Wt 75.0 kg
[2023-01-31 09:45] VITALS: BP 101/57
== END 2023-01-31 10:35 | disposition left against medical advice (07) ==
LOC: M ED 09:44
DX: S09.90XA Unspecified injury of head, initial encounter (principal); Z53.21 Procedure and treatment not carried out due to patient leaving prior to being seen by health care provider

== ENCOUNTER 2023-02-07 11:47 | Emergency (ER) | payer MEDICARE, MEDICAID ==
[~2023-02-07] VITALS: Ht 180.3 cm; Wt 68.9 kg
[2023-02-07 12:40] LABS: BASO # 0.1 10^3/uL (0.0-0.2); BASO % 0.8 % (0.0-1.0); EOS # 0.2 10^3/uL (0.0-0.5); EOS % 2.7 % (0.0-3.0); HEMOGLOBIN 12.3 g/dl (13.5-17.5); LYMPH # 1.5 10^3/uL (1.5-5.0); LYMPH % 24.3 % (24.0-44.0); MEAN CORPUSCULAR HEMOGLOBIN 30.8 pg (27.0-33.0); MEAN CORPUSCULAR HGB CONC 32.4 g/dl (32.0-36.5); MEAN CORPUSCULAR VOLUME 95.2 fl (80.0-96.0); MONO # 0.5 10^3/uL (0.0-0.8); MONO % 7.9 % (2.0-8.0); NEUTROPHILS # 3.8 10^3/uL (1.5-8.5); PLATELET COUNT, AUTOMATED 269 10^3/uL (150-450); RED BLOOD COUNT 3.99 10^6/uL (4.30-6.10)
[2023-02-07] MEDS ORDERED: QUET300T93 (12:44)
[2023-02-07 13:04] LABS: LIPASE 30 U/L (12-53)
[2023-02-07 13:07] LABS: ALBUMIN 3.6 G/DL (3.2-5.2); ALKALINE PHOSPHATASE 100 U/L (46-116); ALT/SGPT 20 U/L (7.0-40); AST/SGOT 23 U/L (<34); BILIRUBIN,DIRECT 0.3 MG/DL (<0.4); BILIRUBIN,TOTAL 0.7 MG/DL (0.3-1.2); BLOOD UREA NITROGEN 14 MG/DL (9-23); CARBON DIOXIDE LEVEL 28 MMOL/L (20-31); CHLORIDE LEVEL 108 MMOL/L (98-107); CREATININE FOR GFR 0.86 MG/DL (0.70-1.30); GLOMERULAR FILTRATION RATE > 60.0 (>42); GLUCOSE, FASTING 91 MG/DL (74-106); POTASSIUM SERUM 4.2 MMOL/L (3.5-5.1); SODIUM LEVEL 142 MMOL/L (136-145); TOTAL PROTEIN 6.4 G/DL (5.7-8.2)
[2023-02-07 14:45] VITALS: BP 129/69
== END 2023-02-07 15:15 | disposition home or self-care (01) ==
LOC: M ED 11:47
DX: R19.7 Diarrhea, unspecified (principal); I49.9 Cardiac arrhythmia, unspecified; N40.0 Benign prostatic hyperplasia without lower urinary tract symptoms; F31.9 Bipolar disorder, unspecified; J44.9 Chronic obstructive pulmonary disease, unspecified; B19.10 Unspecified viral hepatitis B without hepatic coma; B19.20 Unspecified viral hepatitis C without hepatic coma; F17.200 Nicotine dependence, unspecified, uncomplicated; Z88.8 Allergy status to other drugs, medicaments and biological substances; Z79.51 Long term (current) use of inhaled steroids; Z79.899 Other long term (current) drug therapy

== ENCOUNTER 2023-02-09 09:22 | Emergency (ER) | payer MEDICARE, MEDICAID ==
[~2023-02-09] VITALS: Ht 180.3 cm; Wt 72.7 kg
[~2023-02-09 09:22] MED LIST changes: +QUET300T93
[2023-02-09] MEDS ORDERED: NS 1,000 ML IV ONE (09:50)
[2023-02-09 10:29] LABS: BASO # 0.1 10^3/uL (0.0-0.2); BASO % 1.3 % (0.0-1.0); EOS # 0.3 10^3/uL (0.0-0.5); EOS % 6.5 % (0.0-3.0); HEMOGLOBIN 12.5 g/dl (13.5-17.5); LYMPH # 1.4 10^3/uL (1.5-5.0); LYMPH % 28.3 % (24.0-44.0); MEAN CORPUSCULAR HEMOGLOBIN 30.6 pg (27.0-33.0); MEAN CORPUSCULAR HGB CONC 32.1 g/dl (32.0-36.5); MEAN CORPUSCULAR VOLUME 95.6 fl (80.0-96.0); MONO # 0.3 10^3/uL (0.0-0.8); MONO % 7.1 % (2.0-8.0); NEUTROPHILS # 2.7 10^3/uL (1.5-8.5); NEUTROPHILS % 56.4 % (36.0-66.0); PLATELET COUNT, AUTOMATED 262 10^3/uL (150-450); RED BLOOD COUNT 4.08 10^6/uL (4.30-6.10); WHITE BLOOD COUNT 4.8 10^3/uL (4.0-10.0)
[2023-02-09 10:45] LABS: LIPASE 34 U/L (12-53)
[2023-02-09 10:48] LABS: ALBUMIN 3.6 G/DL (3.2-5.2); ALKALINE PHOSPHATASE 95 U/L (46-116); ALT/SGPT 21 U/L (7.0-40); AST/SGOT 35 U/L (<34); BILIRUBIN,DIRECT 0.3 MG/DL (<0.4); BILIRUBIN,TOTAL 0.8 MG/DL (0.3-1.2); BLOOD UREA NITROGEN 13 MG/DL (9-23); CALCIUM LEVEL 8.8 MG/DL (8.3-10.6); CARBON DIOXIDE LEVEL 29 MMOL/L (20-31); CHLORIDE LEVEL 108 MMOL/L (98-107); CREATININE FOR GFR 0.81 MG/DL (0.70-1.30); GLOMERULAR FILTRATION RATE > 60.0 (>42); GLUCOSE, FASTING 136 MG/DL (74-106); SODIUM LEVEL 141 MMOL/L (136-145); TOTAL PROTEIN 6.2 G/DL (5.7-8.2)
[2023-02-09 11:05] LABS: RSV AMPLIFICATION NEGATIVE (NEGATIVE)
[2023-02-09 13:22] VITALS: BP 129/58
== END 2023-02-09 13:36 | disposition home or self-care (01) ==
LOC: M ED 09:22
DX: Z60.9 Problem related to social environment, unspecified (principal); J44.9 Chronic obstructive pulmonary disease, unspecified; N40.0 Benign prostatic hyperplasia without lower urinary tract symptoms; F31.9 Bipolar disorder, unspecified; Z88.8 Allergy status to other drugs, medicaments and biological substances; Z79.51 Long term (current) use of inhaled steroids; Z79.899 Other long term (current) drug therapy

== ENCOUNTER → 2023-02-22 | Outpatient (CLI) | payer MEDICARE, MEDICAID ==
[2023-02-22 18:55] LABS: BASO # 0.1 10^3/uL (0.0-0.2); EOS # 0.1 10^3/uL (0.0-0.5); EOS % 2.4 % (0.0-3.0); HEMATOCRIT 40.2 % (42.0-52.0); HEMOGLOBIN 12.9 g/dl (13.5-17.5); LYMPH # 1.4 10^3/uL (1.5-5.0); MEAN CORPUSCULAR HEMOGLOBIN 31.1 pg (27.0-33.0); MEAN CORPUSCULAR HGB CONC 32.1 g/dl (32.0-36.5); MEAN CORPUSCULAR VOLUME 96.9 fl (80.0-96.0); MONO # 0.5 10^3/uL (0.0-0.8); MONO % 7.7 % (2.0-8.0); NEUTROPHILS # 3.9 10^3/uL (1.5-8.5); NEUTROPHILS % 65.7 % (36.0-66.0); PLATELET COUNT, AUTOMATED 261 10^3/uL (150-450); RED BLOOD COUNT 4.15 10^6/uL (4.30-6.10)
[2023-02-22 19:13] LABS: ERYTHROCYTE SEDIMENTATION RATE 11 mm/hr (0-20)
[2023-02-22 19:17] LABS: RHEUMATOID FACTOR QUANT < 3.5 IU/ML (<14)
[2023-02-22 19:19] LABS: FOLATE 14.95 NG/ML (>5.4); THYROID STIMULATING HORMONE 0.505 uIU/ML (0.55-4.78)
[2023-02-22 19:20] LABS: VITAMIN B12 LEVEL 347 PG/ML (211-911)
== END ==
LOC: M WUC 14:21
PROVIDERS: ATTEND Psychiatry & Neurology Neurology
DX: F09 Unspecified mental disorder due to known physiological condition (principal); E07.9 Disorder of thyroid, unspecified